=== PATIENT | female | born 1940 | race Caucasian/White ===

== ENCOUNTER 2016-12-03 13:55 | Emergency (ER) | payer MEDICARE ==
[~2016-12-03 13:55] MED LIST: ALPR.5 PO; AMLO5 PO; CYCL1TAB29 PO; DOCU1CAP39 PO; FLUD.1 PO; GABA100C4 PO; HYDR25TA35 PO; LEVO.075 PO; LIDO5DIS35 TD; Miconazole 2% Cream TOPICAL; NADO1TAB17 PO; NAME5TAB2 PO; POTA20TA5 PO; PRED10 PO; PRED20 PO; ULTR50TA5 PO; WHEEMIS3
[2016-12-03 14:13] VITALS: BP 109/58; PULSE 78; RESP 18; TEMP 98.3; O2SAT 94
--- NOTE | 2016-12-03 14:26 | PD ---
HPI Chief Complaint: Neuro Symptoms/ Deficits Time Seen by Provider: 14:19 Travel History International Travel<30 days: No Contact w/Intl Traveler<30days: No Traveled to known affect area: No History of Present Illness HPI 76-year-old female was brought to the ED after a possible seizure episode. Patient was newly diagnosed with type 2 diabetes. Patient was in the building attending diabetic class. Patient started having eyes rolling up and stiffening and shaking of the extremity. The symptoms lasted about 30 seconds and resolved completely. Patient's daughter reported no postictal state. Patient daughter reported no bowel or bladder incontinence. Patient reported no history of seizure in the past. Patient denies any headache. Patient denies any visual change. Patient denies any neck pain. Patient denies any chest pain or shortness of breath. Patient denies abdominal pain. Patient denies any focal weakness or numbness of extremity. Patient was seen by Dr. Hinojosa, neurologist in the past. Patient had MRI of the brain done 11/23/2016 at [facility] which showed no acute pathology. Patient has history of chronic back pain status post laminectomy, vertebroplasty and lumbar spinal fusion. Patient also has history hypertension, adrenal insufficiency which she is given steroid. PFSH Past Medical History Arthritis: No Asthma: No Autoimmune Disease: No Blood Disorders: No Anxiety: Yes Depression: No Heart Rhythm Problems: No Cancer: Yes (skin cancer at the tip of nose [place] 2003) Cardiovascular Problems: Yes (htn ) High Cholesterol: No Chemotherapy: No Chest Pain: No Congestive Heart Failure: No COPD: No Cerebrovascular Accident: No Diabetes: Yes (NEWLY DIAG) Endocrine: No GERD: No Genitourinary: Yes (UTI) Hepatitis: No Hiatal Hernia: No Hypertension: Yes (DX 1994) Immune Disorder: No Implanted Vascular Access Dvce: Yes Kidney Stones: No Musculoskeletal: Yes (CHRONIC BACK PAIN) Neurologic: Yes (HX FALL-seeing dr. hinojosa neurologist) Psychiatric: Yes (ANXIETY) Reproductive: Yes (HYSTERECTOMY) Respiratory: No Migraines: No Radiation Therapy: No Renal Failure: No Seizures: No Sickle Cell Disease: No Sleep Apnea: No Thyroid Disease: No Ulcer: No Past Surgical History Abdominal Surgery: No AICD: No Arteriovenous Shunt: No Body Medical Devices: HARDWARE IN LOW BACK FROM RECENT BACK SURGERY Cardiac Surgery: No Ear Surgery: No Endocrine Surgery: No Eye Surgery: Yes (CATARACTS SURGERY) Genitourinary Surgery: No Gynecologic Surgery: Yes (hysterectomy 1969) Insulin Pump: No Joint Replacement: No Neurologic Surgery: Yes (BACK, L4-L5 TRANSFORMAMINAL FUSION, L4-S1 SCREW FIXATION, KYPHOPLASTY) Oral Surgery: Yes (TONSILLECTOMY) Pacemaker: No Thoracic Surgery: Yes (lumbar spine fusion) Other Surgery: Yes (SEE BELOW) Social History Alcohol Use: No Tobacco Use: No Substance Use: No Allergies-Medications (Allergen,Severity, Reaction): Coded Allergies: Penicillin (Unverified Allergy, Unknown, hives as a child, 01/24/16) Percocet (Verified Adverse Reaction, Mild, Hives, 01/24/16) Reported Meds & Prescriptions Reported Meds & Active Scripts Active Wheelchair (Device) 1 Mis Mis 1 Ea .ROUTE DIRECTED Ultram (Tramadol HCl) 50 Mg Tab 25 Mg PO Q8H PRN Potassium Chloride Microencaps 20 Meq Tab 20 Meq PO BID 14 Days Corgard (Nadolol) 40 Mg Tab 40 Mg PO DAILY 30 Days [Miconazole 2% Cream] 15 APPLIC/15 GM Cr 1 Applic TOPICAL BID@09,20 14 Days Namenda (Memantine) 5 Mg Tab 5 Mg PO DAILY 30 Days Lidoderm Patch 12 HR (Lidocaine) 5% Patch 1 Patch TD DAILY 30 Days Synthroid (Levothyroxine Sodium) 75 Mcg Tab 75 Mcg PO DAILY@0600 30 Days Hydralazine (Hydralazine HCl) 25 Mg Tab 25 Mg PO Q8HR 30 Days Fludrocortisone (Fludrocortisone Acetate) 0.1 Mg Tab 0.1 Mg PO BID 30 Days Dok (Docusate Sodium) 100 Mg Cap 100 Mg PO DAILY PRN 30 Days Flexeril (Cyclobenzaprine HCl) 10 Mg Tab 5 Mg PO DAILY PRN Norvasc (Amlodipine Besylate) 5 Mg Tab 5 Mg PO DAILY 30 Days Xanax (Alprazolam) 0.5 Mg Tab 1 Mg PO Q8H PRN Reported Torsemide 5 Mg Tab 5 Mg PO DAILY Meclizine (Meclizine HCl) 12.5 Mg Tab 12.5 Mg PO DAILY PRN Gabapentin 100 Mg Cap 100 Mg PO TID Review of Systems General / Constitutional: No: Fever Eyes: No: Visual changes HENT: No: Headaches Cardiovascular: No: Chest Pain or Discomfort Respiratory: No: Shortness of Breath Gastrointestinal: No: Abdominal Pain Genitourinary: No: Dysuria Musculoskeletal: No: Pain Skin: No Rash Neurologic: No: Weakness Psychiatric: No: Depression Endocrine: No: Polydipsia Hematologic/Lymphatic: No: Easy Bruising Physical Exam Narrative GENERAL: Well-nourished, well-developed patient. SKIN: Warm and dry. HEAD: Normocephalic. EYES: No scleral icterus. No injection or drainage. NECK: Supple, trachea midline. No JVD or lymphadenopathy. CARDIOVASCULAR: Regular rate and rhythm without murmurs, gallops, or rubs. RESPIRATORY: Breath sounds equal bilaterally. No accessory muscle use. GASTROINTESTINAL: Abdomen soft, non-tender, nondistended. MUSCULOSKELETAL: No cyanosis, or edema. BACK: Nontender without obvious deformity. No CVA tenderness. Neurologic exam: Patient's awake and alert oriented 3. No obvious focal neurological deficit. Data Data Last Documented VS Vital Signs Date Time Temp Pulse Resp B/P Pulse Ox O2 Delivery O2 Flow Rate FiO2 12/03/16 16:13 83 93/67 85 97/97 12/03/16 15:39 20 94 Room Air 12/03/16 14:13 98.3 Orders Electrocardiogram (12/03/16 14:19) Complete Blood Count With Diff (12/03/16 14:19) Comprehensive Metabolic Panel (12/03/16 14:19) Prothrombin Time / Inr (Pt) (12/03/16 14:19) Act Partial Throm Time (Ptt) (12/03/16 14:19) Urinalysis - C+S If Indicated (12/03/16 14:19) Thyroid Stimulating Hormone (12/03/16 14:19) Chest, Single Ap (12/03/16 14:19) Ct Brain W/O Iv Contrast(Rout) (12/03/16 14:19) Iv Access Insert/Monitor (12/03/16 14:19) Ecg Monitoring (12/03/16 14:19) Oximetry (12/03/16 14:19) Sodium Chlor 0.9% 1000 Ml Inj (Ns 1000 M (12/03/16 16:30) Sodium Chlorid 0.9% 500 Ml Inj (Ns 500 M (12/03/16 16:30) Labs Laboratory Tests Test 12/03/16 12/03/16 15:05 15:15 White Blood Count 8.4 TH/MM3 Red Blood Count 4.95 MIL/MM3 Hemoglobin 14.4 GM/DL Hematocrit 42.7 % Mean Corpuscular Volume 86.2 FL Mean Corpuscular Hemoglobin 29.1 PG Mean Corpuscular Hemoglobin 33.7 % Concent Red Cell Distribution Width 13.2 % Platelet Count 191 TH/MM3 Mean Platelet Volume 10.2 FL Neutrophils (%) (Auto) 70.2 % Lymphocytes (%) (Auto) 14.2 % Monocytes (%) (Auto) 12.6 % Eosinophils (%) (Auto) 2.6 % Basophils (%) (Auto) 0.4 % Neutrophils # (Auto) 5.9 TH/MM3 Lymphocytes # (Auto) 1.2 TH/MM3 Monocytes # (Auto) 1.1 TH/MM3 Eosinophils # (Auto) 0.2 TH/MM3 Basophils # (Auto) 0.0 TH/MM3 CBC Comment DIFF FINAL Differential Comment Prothrombin Time 10.7 SEC Prothromb Time International 1.0 RATIO Ratio Activated Partial 26.1 SEC Thromboplast Time Sodium Level 139 MEQ/L Potassium Level 4.8 MEQ/L Chloride Level 104 MEQ/L Carbon Dioxide Level 26.1 MEQ/L Anion Gap 9 MEQ/L Blood Urea Nitrogen 23 MG/DL Creatinine 0.83 MG/DL Estimat Glomerular Filtration 66 ML/MIN Rate Random Glucose 110 MG/DL Calcium Level 9.6 MG/DL Total Bilirubin 0.2 MG/DL Aspartate Amino Transf 23 U/L (AST/SGOT) Alanine Aminotransferase 23 U/L (ALT/SGPT) Alkaline Phosphatase 68 U/L Total Protein 6.8 GM/DL Albumin 3.4 GM/DL Thyroid Stimulating Hormone LESS THAN 3rd Gen 0.005 uIU/ML Urine Color YELLOW Urine Turbidity CLEAR Urine pH 7.0 Urine Specific [place] 1.009 Urine Protein NEG mg/dL Urine Glucose (UA) NEG mg/dL Urine Ketones NEG mg/dL Urine Occult Blood NEG Urine Nitrite NEG Urine Bilirubin NEG Urine Urobilinogen LESS THAN 2.0 MG/DL Urine Leukocyte Esterase NEG Urine RBC LESS THAN 1 /hpf Urine WBC 1 /hpf Urine Squamous Epithelial 2 /hpf Cells Urine Bacteria OCC /hpf Microscopic Urinalysis Comment CULT NOT INDICATED MDM Medical Decision Making Medical Screen Exam Complete: Yes Emergency Medical Condition: Yes Interpretation(s) Last Impressions Head CT 12/03/16 4132 Signed Impressions: Service Date/Time: Saturday, December 03, 2016 14:54 - CONCLUSION: No acute disease. No significant change has occurred. Alfred Sierra MD 1531 PM. Chest x-ray shows compensated cardiomegaly. CBC within normal limit. 1614 p.m. CMP within normal limit. TSH less than 0.005. UA is negative. Differential Diagnosis Differential diagnosis including vasovagal reaction, seizure, electrolyte imbalance, dehydration, arrhythmia. Narrative Course 76-year-old female with eyes rolling back, stiffening and shaking of the extremity this afternoon. Normal saline solution 500 cc IV bolus. I spoke with Dr. Hinojosa, , patient's neurologist. Advised for patient to follow with her in the office. Diagnosis Primary Impression: Seizure Additional Impression: Hyperthyroidism Patient Instructions: General Instructions Additional Instructions: Stop Ultram. Stop levothyroxin. Follow-up with neurologist in 2 days. Return immediately if recurrent seizure, altered mental status or worsening condition. Med/Other Pt SpecificInfo: Med Stopped Disposition: 01 DISCHARGE HOME Condition: Stable Meliton Aguilar MD Dec 03, 2016 14:26
--- NOTE | 2016-12-03 15:02 | RADRPT ---
EXAM DATE/TIME: 12/03/2016 14:54 [facility] COMPARISON: CT BRAIN W/O CONTRAST, August 12, 2016, 0:08. INDICATIONS : Altered mental RADIATION DOSE: 36.83 CTDIvol (mGy) MEDICAL HISTORY : Hypertension. Cardiovascular disease SURGICAL HISTORY : Hysterectomy. ENCOUNTER: Initial ACUITY: 1 day PAIN SCALE: 0/10 LOCATION: cranial TECHNIQUE: Multiple contiguous axial images were obtained of the head. Using automated exposure control and adj ustment of the mA and/or kV according to patient size, radiation dose was kept as low as reasonably a chievable to obtain optimal diagnostic quality images. FINDINGS: CEREBRUM: The ventricles are normal for age. No evidence of midline shift, mass lesion, hemorrhage or acute in farction. No extra-axial fluid collections are seen. POSTERIOR FOSSA: The cerebellum and brainstem are intact. The 4th ventricle is midline. The cerebellopontine angle i s unremarkable. EXTRACRANIAL: The visualized portion of the orbits is intact. SKULL: The calvaria is intact. No evidence of skull fracture. CONCLUSION: No acute disease. No significant change has occurred. Alfred Sierra MD on December 03, 2016 at 14:59 Board Certified Radiologist. This report was verified electronically.
[2016-12-03] MEDS ORDERED: TORS5TAB2 PO (15:12)
[2016-12-03] MEDS ORDERED: MECL12.574 PO (15:12)
--- NOTE | 2016-12-03 15:15 | RADRPT ---
EXAM DATE/TIME: 12/03/2016 14:50 [facility] COMPARISON: CHEST SINGLE AP, November 04, 2014, 0:39. INDICATIONS : Syncopal episode today. Possible seizure. MEDICAL HISTORY : Diabetes mellitus type II. Hypertension. [place] Palsy. SURGICAL HISTORY : None. ENCOUNTER: Initial ACUITY: 1 day PAIN SCORE: 0/10 LOCATION: Bilateral chest FINDINGS: The heart is enlarged. Minimal bibasilar parenchymal changes are noted. There is no alveolar conso lidation, pleural effusion or pneumothorax. CONCLUSION: Compensated cardiomegaly otherwise negative. Bobby Castelan MD FACR on December 03, 2016 at 15:07 Board Certified Radiologist. This report was verified electronically.
[2016-12-03 15:29] LABS: AUTOMATED NEUTROPHIL # 5.9 TH/MM3 (1.8-7.7); BASOPHIL % 0.4 % (0.0-2.0); EOSINOPHIL # 0.2 TH/MM3 (0-0.4); EOSINOPHIL % 2.6 % (0.0-4.0); HEMATOCRIT 42.7 % (35.0-46.0); HEMO FLAGS DIFF FINAL; LYMPH % 14.2 % (9.0-44.0); LYMPHOCYTE # 1.2 TH/MM3 (1.0-4.8); MEAN CELL VOLUME 86.2 FL (80.0-100.0); MEAN CORPUSCULAR HEMOGLOBIN 29.1 PG (27.0-34.0); MEAN CORPUSCULAR HGB CONC 33.7 % (32.0-36.0); MONO % 12.6 % (0.0-8.0); NEUT % 70.2 % (16.0-70.0); PLATELET COUNT 191 TH/MM3 (150-450); RED BLOOD COUNT 4.95 MIL/MM3 (4.00-5.30); RED CELL DISTRIBUTION WIDTH 13.2 % (11.6-17.2); WHITE BLOOD COUNT 8.4 TH/MM3 (4.0-11.0)
[2016-12-03 15:38] VITALS: BP 101/59; PULSE 82; RESP 20; O2SAT 94
[2016-12-03 15:39] VITALS: BP 101/59; PULSE 83; RESP 20; O2SAT 94
[2016-12-03 15:41] LABS: BACTERIA, URINE OCC /hpf; BLOOD, URINE NEG (NEG); COMMENT (UR) CULT NOT INDICATED; CULTURE IF INDICATED CULT NOT INDICATED; GLUCOSE,URINE NEG (NEG); KETONE, URINE NEG (NEG); NITRITE,URINE NEG (NEG); SQUAMOUS EPITHELIAL CELL URINE 2 /hpf (0-5); URINE COLOR YELLOW (YELLW/STRAW)
[2016-12-03 15:46] LABS: APTT (PATIENT) 26.1 SEC (24.3-30.1); PROTHROMBIN TIME - PATIENT 10.7 SEC (9.8-11.6)
[2016-12-03 15:47] LABS: ALT (GPT) 23 U/L (10-53); ANION GAP 9 MEQ/L (5-15); AST (GOT) 23 U/L (15-37); BICARBONATE 26.1 MEQ/L (21.0-32.0); BLOOD UREA NITROGEN 23 MG/DL (7-18); CHLORIDE 104 MEQ/L (98-107); GLOMERULAR FILTRATION RATE 66 ML/MIN (>89); POTASSIUM 4.8 MEQ/L (3.5-5.1); SODIUM (NA) 139 MEQ/L (136-145)
[2016-12-03 15:57] LABS: ALKALINE PHOSPHATASE 68 U/L (45-117); TOTAL BILIRUBIN ADULT 0.2 MG/DL (0.2-1.0)
[2016-12-03 16:13] VITALS: BP_SYST 93; BP_SYST 97; BP_DIAS 67; BP_DIAS 97
[2016-12-03] MEDS ORDERED: SODIUM CHLOR 0.9% 1000 ML INJ 1,000 ML IV SCH (16:30)
[2016-12-03] MEDS ORDERED: SODIUM CHLORID 0.9% 500 ML INJ 500 ML IV ONE (16:30)
[2016-12-03 18:07] VITALS: BP 126/59; PULSE 81; RESP 20; O2SAT 94
[2016-12-03 18:08] VITALS: BP 126/59
--- NOTE | 2016-12-04 16:39 | EKG ---
Date Performed: 12/03/2016 Time Performed: 14:37:26 PTAGE: 76 years EKG: Sinus rhythm WITH FIRST DEGREE AV BLOCK POSSIBLE LEFT ATRIAL ENLARGEMENT Since previous tracing, no significant c hange noted ABNORMAL ECG PREVIOUS TRACING : 04/10/2012 12.07 DOCTOR: Roney Mcallister Interpretating Date/Time 12/04/2016 16:37:52
== END 2016-12-03 18:54 | disposition home or self-care (01) ==
LOC: NEPC 13:55
DX: R56.9 Unspecified convulsions (principal); E05.90 Thyrotoxicosis, unspecified without thyrotoxic crisis or storm; R94.31 Abnormal electrocardiogram [ECG] [EKG]; E11.9 Type 2 diabetes mellitus without complications; I10 Essential (primary) hypertension; E27.40 Unspecified adrenocortical insufficiency; Z87.39 Personal history of other diseases of the musculoskeletal system and connective tissue; Z86.59 Personal history of other mental and behavioral disorders; Z85.828 Personal history of other malignant neoplasm of skin; Z86.79 Personal history of other diseases of the circulatory system; Z87.448 Personal history of other diseases of urinary system; Z86.69 Personal history of other diseases of the nervous system and sense organs
CPT/HCPCS: 70450; 71010; 80053; 81001; 84443; 85025; 85610; 85730; 93005; 96360; 99285; J7040

== ENCOUNTER → 2017-01-07 | Day surgery (SDC) | payer MEDICARE ==
[~2017-01-07] MED LIST changes: +ACETAMINOPHEN 1000 MG/100 ML VIAL IV ONE; +BALANCED SALT SOLN OPHT IRRIG 15 ML BTL ONE; +HYDROCORTISONE SOD SUCCINATE 100 MG VIAL ONE; +LACTATED RINGER'S 1000 ML INJ 1,000 ML ONE; +LIDOCAINE 1%/EPINEPHrine 1:100,000 SOLN 20 ML VIAL ONE; +MECL12.574 PO; +MIDAZOLAM HCL 2 MG/2 ML VIAL ONE; +NEOMYCIN/POLYMYXIN/BACITRACIN OINT 15 GM TUBE ONE; +NEOMYCIN/POLYMYXIN/HYDROCORT OTIC SUSP 10 ML BTL ONE; +ONDANSETRON HCL 4 MG/2 ML VIAL IV PUSH ONE; -PRED10 PO; -PRED20 PO; +PROPOFOL 200 MG/20 ML AMP IV ONE; +TORS5TAB2 PO; +VANCOMYCIN 500 MG VIAL ONE
--- NOTE | 2017-01-07 10:59 | TN ---
cc: ALEJANDRO BERGMAN M.D. DATE OF SURGERY: 01/07/2017 PREOPERATIVE DIAGNOSIS Basal cell carcinoma, center upper mid forehead. POSTOPERATIVE DIAGNOSIS Basal cell carcinoma, center upper mid forehead. PROCEDURE Wide local excision resulting in a primary defect of 3 x 3 cm. Positive excision of the 12 to 3 o'clock required a re-excision resulting in a defect of 4 x 3 cm primary. The secondary defect is 4 x 9 cm. This required tissue arrangement construction. SURGEON Alejandro Bergman ANESTHESIA LMA general, 10 cc of 1% lidocaine with epinephrine. ESTIMATED BLOOD LOSS Minimal. COMPLICATIONS None. DETAILS OF PROCEDURE The patient is properly consented, marked and anesthetized. The skin is sterilized with Microcyn and sterile draping applied. Excision was carried out of this tumor located in the center upper forehead. Dr. Albert stated that the margins were very close to the 12-3 o'clock. Therefore, an extra centimeter was removed resulting in a primary defect of 4 x 3 cm instead of the initial 3 x 3 cm. That required further V-Y tissue rearrangement and reconstruction based on the fascia of the frontalis muscle. This was properly released and inset utilizing 3-0 Monocryl suture. On the skin layer I utilized a subcuticular. On the hair-bearing I utilized surgical carlota. Good viability of tissue was noted at the end of the case. The patient was awakened, extubated in the operating room and transferred back to the post-anesthesia care unit in stable addition. No complications were appreciated. The patient tolerated the procedure fairly well. MD BAUTISTA Cochran/CECILY /10:46 AM /10:52 AM [facility]
== END | disposition home or self-care (01) ==
LOC: ESDC 08:17
PROVIDERS: ATTEND Plastic Surgery
DX: C44.319 Basal cell carcinoma of skin of other parts of face (principal)
CPT/HCPCS: 00300; 14301; 88305; 88331; J0131; J1720; J2250; J2405; J3010; J3370; J7120

== ENCOUNTER 2017-07-10 15:30 | Inpatient (IN) | payer MEDICARE ==
[~2017-07-10 15:30] MED LIST changes: -ACETAMINOPHEN 1000 MG/100 ML VIAL IV ONE; -BALANCED SALT SOLN OPHT IRRIG 15 ML BTL ONE; -HYDROCORTISONE SOD SUCCINATE 100 MG VIAL ONE; -LACTATED RINGER'S 1000 ML INJ 1,000 ML ONE; -LIDOCAINE 1%/EPINEPHrine 1:100,000 SOLN 20 ML VIAL ONE; -MIDAZOLAM HCL 2 MG/2 ML VIAL ONE; -NEOMYCIN/POLYMYXIN/BACITRACIN OINT 15 GM TUBE ONE; -NEOMYCIN/POLYMYXIN/HYDROCORT OTIC SUSP 10 ML BTL ONE; -ONDANSETRON HCL 4 MG/2 ML VIAL IV PUSH ONE; -PROPOFOL 200 MG/20 ML AMP IV ONE; -VANCOMYCIN 500 MG VIAL ONE
[2017-07-10] MEDS ORDERED: MORPHINE SULFATE 4 MG/ML INJ IV PUSH PRN ×2 (16:15)
[2017-07-10] MEDS ORDERED: TEMAZEPAM 15 MG CAP PO PRN (16:15)
[2017-07-10] MEDS ORDERED: SENNOSIDES 8.6 MG TAB PO PRN (16:15)
[2017-07-10] MEDS ORDERED: BISACODYL 10 MG SUPP RECTAL PRN (16:15)
[2017-07-10] MEDS ORDERED: SODIUM CHLORIDE 0.9% FLUSH 10 ML FLUSH IV FLUSH PRN (16:15)
[2017-07-10] MEDS ORDERED: DEXTROSE 50% IN WATER 50 ML VIAL(D50) IV PUSH PRN (16:15)
[2017-07-10] MEDS ORDERED: NALOXONE HCL 0.4 MG/ML AMP IV PUSH PRN (16:15)
[2017-07-10] MEDS ORDERED: traMADol HCL 50 MG TAB PO PRN (16:15)
[2017-07-10] MEDS ORDERED: GLUCAGON 1 MG/ML VIAL OTHER PRN (16:15)
[2017-07-10] MEDS ORDERED: MAGNESIUM HYDROXIDE SUSP 30 ML CUP PO PRN (16:15)
[2017-07-10] MEDS ORDERED: PROCHLORPERAZINE 25 MG SUPP RECTAL PRN (16:15)
[2017-07-10] MEDS ORDERED: LACTULOSE SYRUP 20 GM/30 ML CUP PO PRN (16:15)
--- NOTE | 2017-07-10 16:30 | HHI.HP ---
[facility] Service [facility] Primary Care Physician Gregor Curran M.D. Admission Diagnosis AFIB WITH RVR BEING STARTED ON SOTALOL Diagnoses: (1) Diabetes Diagnosis: Secondary (2) Atrial fibrillation Diagnosis: Principal (3) History of back surgery Diagnosis: Secondary (4) Impaired gait Diagnosis: Secondary (5) Chronic pain Diagnosis: Secondary (6) Hyperthyroidism Diagnosis: Secondary (7) Chronic kidney disease Diagnosis: Secondary Chief Complaint: Atrial fibrillation with RVR Travel History International Travel<30 Days: No Contact w/Intl Traveler <30 Da: No Traveled to Known Affected Are: No History of Present Illness Patient is a 77-year-old female. Who presents to the hospital as a direct admission from Dr. HERNANDEZ OFFICE. Patient is noted to be in atrial fibrillation with RVR. Will be sent as a direct admission to load sotalol Patient's medications will need to be adjusted. Patient has chronic anticoagulation on Eliquis diabetes mellitus. Anxiety hypothyroidism depression Review of Systems Constitutional: DENIES: Diaphoretic episodes, Fatigue, Fever, Weight gain, Weight loss, Chills, Dizziness, Change in appetite Endocrine: DENIES: Abnorml menstrual pattern, Heat/cold intolerance Eyes: DENIES: Blurred vision, Diplopia, Eye inflammation, Eye pain Ears, nose, mouth, throat: DENIES: Tinnitus, Hearing loss, Vertigo, Nasal discharge, Odynophagia Respiratory: DENIES: Apneas, Cough, Snoring, Wheezing, Hemoptysis Cardiovascular: COMPLAINS OF: Chest pain, Palpitations, Dyspnea on Exertion, DENIES: Syncope, PND, Lower Extremity Edema Gastrointestinal: DENIES: Abdominal pain, Black stools, Bloody stools, Constipation, Diarrhea Genitourinary: DENIES: Abnormal vaginal bleeding, Dysmenorrhea, Vaginal discharge Musculoskeletal: COMPLAINS OF: Joint pain, Back pain, DENIES: Muscle aches, Stiffness, Joint Swelling Integumentary: DENIES: Abnormal pigmentation, Pruritus, Rash Hematologic/lymphatic: DENIES: Bruising, Lymphadenopathy Immunologic/allergic: DENIES: Eczema, Urticaria Neurologic: COMPLAINS OF: Abnormal gait, DENIES: Headache, Localized weakness Psychiatric: COMPLAINS OF: Anxiety, Depression, DENIES: Confusion, Mood changes Past Family Social History Past Medical History History of falls Hypertension atrial fibrillation Urinary tract infections Chronic back pain Anxiety depression Skin 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 History of syncope Aortic regurgitation Mitral stenosis Chronic bilateral lower extremity edema Vertigo Seizures Gait unsteadiness Adrenal insufficiency Diabetes mellitus Past Surgical History Cataracts and tonsillectomy History of back surgery L4 to L5 with transforaminal fusion History of L4 to S1 screw fixation kyphoplasty Hysterectomy Reported Medications Reported Meds & Active Scripts Active Wheelchair (Device) 1 Mis Mis 1 Ea .ROUTE DIRECTED Ultram (Tramadol HCl) 50 Mg Tab 25 Mg PO Q8H PRN Potassium Chloride Microencaps 20 Meq Tab 20 Meq PO BID 14 Days Corgard (Nadolol) 40 Mg Tab 40 Mg PO DAILY 30 Days [Miconazole 2% Cream] 15 APPLIC/15 GM Cr 1 Applic TOPICAL BID@09,20 14 Days Namenda (Memantine) 5 Mg Tab 5 Mg PO DAILY 30 Days Lidoderm Patch 12 HR (Lidocaine) 5% Patch 1 Patch TD DAILY 30 Days Synthroid (Levothyroxine Sodium) 75 Mcg Tab 75 Mcg PO DAILY@0600 30 Days Hydralazine (Hydralazine HCl) 25 Mg Tab 25 Mg PO Q8HR 30 Days Fludrocortisone (Fludrocortisone Acetate) 0.1 Mg Tab 0.1 Mg PO BID 30 Days Dok (Docusate Sodium) 100 Mg Cap 100 Mg PO DAILY PRN 30 Days Flexeril (Cyclobenzaprine HCl) 10 Mg Tab 5 Mg PO DAILY PRN Norvasc (Amlodipine Besylate) 5 Mg Tab 5 Mg PO DAILY 30 Days Xanax (Alprazolam) 0.5 Mg Tab 1 Mg PO Q8H PRN Reported Torsemide 5 Mg Tab 5 Mg PO DAILY Meclizine (Meclizine HCl) 12.5 Mg Tab 12.5 Mg PO DAILY PRN Gabapentin 100 Mg Cap 100 Mg PO TID Allergies: Coded Allergies: penicillin G (Unverified Allergy, Unknown, hives as a child, 05/28/17) acetaminophen (Unverified Adverse Reaction, Mild, Hives, 05/28/17) oxycodone (Unverified Adverse Reaction, Mild, Hives, 05/28/17) Active Ordered Medications Current Medications Insulin Aspart (NovoLOG SUPPLEMENTAL SCALE) 1 ACHS SLIDING SCALE SQ ; Start at 17:00; Status UNV Dextrose (D50w (Vial) Inj) 50 ml UNSCH PRN IV PUSH HYPOGLYCEMIA-SEE COMMENTS; Start 07/10/17 at 16:15; Status UNV Glucagon (Glucagon Inj) 1 mg UNSCH PRN OTHER HYPOGLYCEMIA-SEE COMMENTS; Start 07/10/17 at 16:15; Status UNV Family History MOther father Family history of heart disease Social History Former smoker used to smoke over a pack plus a day for 40+ years Drinks alcoholic beverages Physical Exam Vital Signs Vital Signs Date Time Temp Pulse Resp B/P (MAP) Pulse Ox O2 Delivery O2 Flow Rate FiO2 07/10/17 16:47 21 Current Medications Medications (Trade) Dose Ordered Sig/Chang Route PRN Reason Start Time Stop Time Status Last Admin Dose Admin Insulin Aspart (NovoLOG SUPPLEMENTAL SCALE) 1 ACHS SLIDING SCALE SQ 07/10/17 17:00 Dextrose (D50w (Vial) Inj) 50 ml UNSCH PRN IV PUSH HYPOGLYCEMIA-SEE COMMENTS 07/10/17 16:15 Glucagon (Glucagon Inj) 1 mg UNSCH PRN OTHER HYPOGLYCEMIA-SEE COMMENTS 07/10/17 16:15 Sodium Chloride 1,000 ml @ 100 mls/hr Q10H IV 07/10/17 17:00 Sodium Chloride (NS Flush) 2 ml UNSCH PRN IV FLUSH FLUSH AFTER USING IV ACCESS 07/10/17 16:15 Sodium Chloride (NS Flush) 2 ml BID IV FLUSH 07/10/17 21:00 Ondansetron HCl (Zofran Inj) 4 mg Q6H PRN IVP NAUSEA OR VOMITING 07/10/17 16:15 Prochlorperazine (Compazine Supp) 25 mg Q12H PRN RECTAL NAUSEA OR VOMITING 07/10/17 16:15 Temazepam (Restoril) 15 mg HS PRN PO INSOMNIA 07/10/17 16:15 07/10/17 16:47 DC Ibuprofen (Motrin) 400 mg Q6H PRN PO PAIN SCALE 1 TO 2 07/10/17 16:15 Morphine Sulfate (Morphine Inj) 2 mg Q3H PRN IV PUSH Pain 3-5; if unable to take PO 07/10/17 16:15 Morphine Sulfate (Morphine Inj) 4 mg Q3H PRN IV PUSH Pain 6-10;if unable to take PO 07/10/17 16:15 Tramadol HCl (Ultram) 50 mg Q4H PRN PO PAIN SCALE 3 TO 5 07/10/17 16:15 Tramadol HCl (Ultram) 100 mg Q4H PRN PO PAIN SCALE 6 TO 10 07/10/17 16:15 Naloxone HCl (Narcan Inj) 0.4 mg UNSCH PRN IV PUSH SEE LABEL COMMENTS 07/10/17 16:15 Senna/Docusate Sodium (Gilma-Colace) 1 tab BID PO 07/10/17 21:00 Magnesium Hydroxide (Milk Of Magnesia Liq) 30 ml Q12H PRN PO MILD - MODERATE CONSTIPATION 07/10/17 16:15 Sennosides (Senokot) 17.2 mg Q12H PRN PO MODERATE - SEVERE CONSTIPATION 07/10/17 16:15 Bisacodyl (Dulcolax Supp) 10 mg DAILY PRN RECTAL SEVERE CONSITIPATION 07/10/17 16:15 Lactulose (Lactulose Liq) 30 ml DAILY PRN PO SEVERE CONSITIPATION 07/10/17 16:15 Aspirin (Ecotrin Ec) 325 mg NOW ONCE PO 07/10/17 16:45 07/10/17 16:46 DC Aspirin (Ecotrin Ec) 325 mg DAILY PO 07/11/17 09:00 Temazepam (Restoril) 15 mg HS PRN PO SLEEP 07/10/17 16:45 Sotalol HCl (Betapace) 80 mg BID PO 07/10/17 21:00 Physical Exam GENERAL: This is a well-nourished, well-developed patient, in no apparent distress. SKIN: No rashes, ecchymoses or lesions. Cool and dry. HEAD: Atraumatic. Normocephalic. No temporal or scalp tenderness. EYES: Pupils equal round and reactive. Extraocular motions intact. No scleral icterus. No injection or drainage. ENT: Nose without bleeding, purulent drainage or septal hematoma. Throat without erythema, tonsillar hypertrophy or exudate. Uvula midline. Airway patent. NECK: Trachea midline. No JVD or lymphadenopathy. Supple, nontender, no meningeal signs. CARDIOVASCULAR: IRRegular rate and rhythm without murmurs, gallops, or rubs. In atrial fibrillation with rapid ventricular response S1 and S2 no S3 or S4 RESPIRATORY: Clear to auscultation. Breath sounds equal bilaterally. No wheezes , rales, or rhonchi. GASTROINTESTINAL: Abdomen soft, non-tender, nondistended. No hepato-splenomegaly , or palpable masses. No guarding. MUSCULOSKELETAL: Extremities without clubbing, cyanosis, +1-2 lower extremity edema. No joint tenderness, effusion, or edema noted. No calf tenderness. Negative Homans sign bilaterally. NEUROLOGICAL: Awake and alert. Cranial nerves II through XII intact. Motor and sensory grossly within normal limits. Five out of 5 muscle strength in all muscle groups. Normal speech. Insight and judgment is good Mood and behaviors appropriate Caprini VTE Risk Assessment Caprini VTE Risk Assessment: Mod/High Risk (score >= 2) Caprini Risk Assessment Model Point Value = 1 Point Value = 2 Point Value = 3 Point Value = 5 Age 41-60 Minor surgery BMI > 25 kg/m2 Swollen legs Varicose veins or History of unexplained or recurrent spontaneous Oral contraceptives or hormone replacement Sepsis (< 1 month) Serious lung disease, including pneumonia (< 1 month) Abnormal pulmonary function Acute myocardial infarction Congestive heart failure (< 1 month) History of inflammatory bowel disease Medical patient at bed rest Age 61-74 Arthroscopic surgery Major open surgery (> 45 min) Laparoscopic surgery (> 45 min) Malignancy Confined to bed (> 72 hours) Immobilizing plaster cast Central venous access Age >= 75 History of VTE Family history of VTE Factor V Leiden Prothrombin [id number] Lupus anticoagulant Anticardiolipin antibodies Elevated serum homocysteine Heparin-induced thrombocytopenia Other congenital or acquired thrombophilia Stroke (< 1 month) Elective arthroplasty Hip, pelvis, or leg fracture Acute spinal cord injury (< 1 month) Prophylaxis Regimen Total Risk Factor Score Risk Level Prophylaxis Regimen 0-1 Low Early ambulation 2 Moderate Order ONE of the following: *Sequential Compression Device (SCD) *Heparin 5000 units SQ BID 3-4 Higher Order ONE of the following medications: *Heparin 5000 units SQ TID *Enoxaparin/Lovenox 40 mg SQ daily (WT < 150 kg, CrCl > 30 mL/min) *Enoxaparin/Lovenox 30 mg SQ daily (WT < 150 kg, CrCl > 10-29 mL/min) *Enoxaparin/Lovenox 30 mg SQ BID (WT < 150 kg, CrCl > 30 mL/min) AND/OR *Sequential Compression Device (SCD) 5 or more Highest Order ONE of the following medications: *Heparin 5000 units SQ TID (Preferred with Epidurals) *Enoxaparin/Lovenox 40 mg SQ daily (WT < 150 kg, CrCl > 30 mL/min) *Enoxaparin/Lovenox 30 mg SQ daily (WT < 150 kg, CrCl > 10-29 mL/min) *Enoxaparin/Lovenox 30 mg SQ BID (WT < 150 kg, CrCl > 30 mL/min) AND *Sequential Compression Device (SCD) Assessment and Plan Problem List: (1) History of back surgery ICD Code: Z98.89 - Other specified postprocedural states Status: Acute (2) Impaired gait ICD Code: R26.9 - Impaired gait Status: Acute (3) Lumbar degenerative disc disease ICD Code: M51.36 - Degeneration of lumbar intervertebral disc Status: Acute (4) Chronic pain ICD Code: G89.29 - Chronic pain Status: Chronic (5) HTN (hypertension) ICD Code: I10 - Hypertension Status: Chronic (6) Atrial fibrillation ICD Code: I48.91 - Unspecified atrial fibrillation (7) Diabetes ICD Code: E11.9 - Type 2 diabetes mellitus without complications (8) Seizure ICD Code: R56.9 - Unspecified convulsions Status: Acute (9) Balance problem ICD Code: R26.89 - Other abnormalities of gait and mobility Status: Acute Assessment and Plan Atrial fibrillation with rapid ventricular response will be loaded on sotalol and will hopefully undergo cardioversion later this week continue on her Eliquis as at home Chronic syncope followed by Dr. HERNANDEZ Shortness of breath continue on oxygen as needed Aortic regurgitation will follow Mitral stenosis Generalized weakness we'll get physical therapy and occupational therapy to eval and treat Vertigo continue meclizine as needed Seizures monitor Diabetes mellitus type 2 continue on sliding scale coverage with Accu-Cheks before meals and at bedtime Adrenal insufficiency continue on home medications Chronic lower extremity edema Chronic back pain We'll get physical therapy and occupational therapy to eval and treat continue home medications and adjusted per Dr. HERNANDEZ Code Status Full code Discussed Condition With Discussed with RN discussed with patient and family as well as with Physician Certification 2 Midnight Certification Type: Admission for Inpatient Services Order for Inpatient Services The services are ordered in accordance with Medicare regulations or non- Medicare payer requirements, as applicable. In the case of services not specified as inpatient-only, they are appropriately provided as inpatient services in accordance with the 2-midnight benchmark. Estimated LOS (days): 3 3 days is the estimated time the patient will need to remain in the hospital, assuming treatment plan goals are met and no additional complications. Post-Hospital Plan: Not yet determined Bobby Echavarria DO Jul 10, 2017 16:30
[2017-07-10] MEDS ORDERED: ASPIRIN EC 325 MG TABEC PO ONE (16:45)
[2017-07-10] MEDS: INSULIN ASPART SUPPLEMENTAL SCALE SQ SCH ×2 (17:00→21:00)
[2017-07-10 17:01] VITALS: BP 119/77; PULSE 87; RESP 18; TEMP 98; O2SAT 95
[2017-07-10 18:12] LABS: CREATINE KINASE 23 U/L (26-192)
[2017-07-10] MEDS ORDERED: MECLIZINE HCL 25 MG TAB PO PRN (18:45)
[2017-07-10] MEDS: SODIUM CHLOR 0.9% 1000 ML INJ 1,000 ML IV SCH (18:58)
[2017-07-10 19:00] VITALS: BP 142/78; PULSE 103; RESP 18; TEMP 98; O2SAT 95
[2017-07-10] MEDS ORDERED: PILL SPLITTER OTHER PRN (19:00)
[2017-07-10 20:00] VITALS: PULSE 88
[2017-07-10] MEDS: SODIUM CHLORIDE 0.9% FLUSH 10 ML FLUSH IV FLUSH SCH (20:16)
[2017-07-10] MEDS: DOCUSATE SODIUM 50 MG/SENNA 8.6 MG TAB PO SCH (20:16)
[2017-07-10] MEDS: SOTALOL HCL 80 MG TAB PO SCH (20:16)
[2017-07-10] MEDS: TEMAZEPAM 15 MG CAP PO PRN (20:32)
[2017-07-10 20:41] LABS: APTT (PATIENT) 28.2 SEC (24.3-30.1); PROTHROMBIN TIME - PATIENT 11.2 SEC (9.8-11.6)
[2017-07-10 21:00] VITALS: PULSE 98
--- NOTE | 2017-07-10 21:26 | RADRPT ---
EXAM DATE/TIME: 07/10/2017 20:53 [facility] COMPARISON: No previous studies available for comparison. INDICATIONS : Productive cough. MEDICAL HISTORY : Hypertension. Diabetes mellitus type II. A-fib. SURGICAL HISTORY : None. ENCOUNTER: Initial ACUITY: 3 days PAIN SCORE: 0/10 LOCATION: Bilateral chest FINDINGS: There is moderate cardiomegaly, increased from before. Patchy basilar predominant consolidation noted , probably a combination of atelectasis and pulmonary edema. Small, bilateral pleural effusions are p resent. No pneumothorax. CONCLUSION: Moderate cardiomegaly has developed and there is suspected mild failure. Larry Luu MD on July 10, 2017 at 21:24 Board Certified Radiologist. This report was verified electronically.
[2017-07-10] MEDS: FLUDROCORTISONE ACETATE 0.1 MG TAB PO SCH (21:55)
[2017-07-10] MEDS: ALPRAZolam 0.5 MG TAB PO PRN (21:55)
[2017-07-10 22:00] VITALS: PULSE 82
[2017-07-10 23:00] VITALS: BP 100/62; PULSE 80; PULSE 87; RESP 18; TEMP 98.2; O2SAT 94
[2017-07-11] VITALS (29 sets, daily range): BP systolic 125–155; BP diastolic 75–96; PULSE 72–122; RESP 16–20; TEMP 97.6–98.6; O2SAT 92–98
[2017-07-11 00:20] LABS: CREATINE KINASE 26 U/L (26-192)
[2017-07-11] MEDS: SODIUM CHLOR 0.9% 1000 ML INJ 1,000 ML IV SCH ×2 (02:53→17:51)
[2017-07-11] MEDS: IBUPROFEN 400 MG TAB PO PRN (05:14)
[2017-07-11 06:51] LABS: AUTOMATED NEUTROPHIL # 3.9 TH/MM3 (1.8-7.7); BASOPHIL % 0.6 % (0.0-2.0); EOSINOPHIL # 0.2 TH/MM3 (0-0.4); EOSINOPHIL % 3.6 % (0.0-4.0); HEMATOCRIT 37.7 % (35.0-46.0); HEMO FLAGS DIFF FINAL; LYMPH % 23.8 % (9.0-44.0); LYMPHOCYTE # 1.5 TH/MM3 (1.0-4.8); MEAN CELL VOLUME 93.9 FL (80.0-100.0); MEAN CORPUSCULAR HEMOGLOBIN 31.2 PG (27.0-34.0); MEAN CORPUSCULAR HGB CONC 33.3 % (32.0-36.0); MONO % 11.1 % (0.0-8.0); NEUT % 60.9 % (16.0-70.0); PLATELET COUNT 230 TH/MM3 (150-450); RED BLOOD COUNT 4.01 MIL/MM3 (4.00-5.30); RED CELL DISTRIBUTION WIDTH 13.7 % (11.6-17.2); WHITE BLOOD COUNT 6.4 TH/MM3 (4.0-11.0)
[2017-07-11 07:02] LABS: ANION GAP 9 MEQ/L (5-15); AST (GOT) 21 U/L (15-37); BICARBONATE 23.6 MEQ/L (21.0-32.0); BLOOD UREA NITROGEN 10 MG/DL (7-18); CHLORIDE 107 MEQ/L (98-107); GLOMERULAR FILTRATION RATE 95 ML/MIN (>89); MAGNESIUM 1.7 MG/DL (1.5-2.5); POTASSIUM 3.7 MEQ/L (3.5-5.1); SODIUM (NA) 140 MEQ/L (136-145)
[2017-07-11 07:10] LABS: ALKALINE PHOSPHATASE 81 U/L (45-117); ALT (GPT) 27 U/L (10-53); FREE T4 1.36 NG/DL (0.76-1.46); TOTAL BILIRUBIN ADULT 0.4 MG/DL (0.2-1.0)
[2017-07-11 07:43] LABS: CREATINE KINASE 21 U/L (26-192)
--- NOTE | 2017-07-11 07:52 | EKG ---
Date Performed: 07/10/2017 Time Performed: 17:13:34 PTAGE: 77 years EKG: Atrial fibrillation with rapid ventricular response Inferior/lateral ST-T changes are nonsp ecific Abnormal ECG Since PREVIOUS TRACING , now AF with RVR PREVIOUS TRACIN12/03/2016 14.37 DOCTOR: Angela Harp Interpretating Date/Time 07/11/2017 07:50:57
[2017-07-11] MEDS: INSULIN ASPART SUPPLEMENTAL SCALE SQ SCH ×4 (08:00→20:38)
[2017-07-11] MEDS: FLUDROCORTISONE ACETATE 0.1 MG TAB PO SCH ×2 (08:33→20:37)
[2017-07-11] MEDS: SOTALOL HCL 80 MG TAB PO SCH ×2 (08:33→20:37)
[2017-07-11] MEDS: DOCUSATE SODIUM 50 MG/SENNA 8.6 MG TAB PO SCH ×2 (08:33→20:37)
[2017-07-11] MEDS: SODIUM CHLORIDE 0.9% FLUSH 10 ML FLUSH IV FLUSH SCH ×2 (08:34→21:00)
[2017-07-11] MEDS: ASPIRIN EC 325 MG TABEC PO SCH (08:34)
[2017-07-11 12:38] LABS: BACTERIA, URINE RARE /hpf; BLOOD, URINE NEG (NEG); COMMENT (UR) CULT NOT INDICATED; CULTURE IF INDICATED CULT NOT INDICATED; GLUCOSE,URINE NEG (NEG); KETONE, URINE NEG (NEG); MUCUS URINE FEW /lpf (OCC); NITRITE,URINE NEG (NEG); PH, URINE 5.5 (5.0-8.5); SQUAMOUS EPITHELIAL CELL URINE 1 /hpf (0-5); URINE COLOR YELLOW (YELLW/STRAW)
[2017-07-11] MEDS: traMADol HCL 50 MG TAB PO PRN ×2 (14:10→20:55)
[2017-07-11 15:37] LABS: HEMOGLOBIN A1a 0.9 %; HEMOGLOBIN A1b 2.2 %; HEMOGLOBIN Ao 82.3 %; HEMOGLOBIN LA1C 2.4 %; HEMOGLOBIN P3 4.3 %
--- NOTE | 2017-07-11 17:07 | EKG ---
Date Performed: 07/11/2017 Time Performed: 00:52:00 PTAGE: 77 years EKG: Atrial fibrillation Poor R wave progression - probable normal variant Inferior T wave king es are nonspecific Abnormal ECG Since PREVIOUS TRACING , no significant change noted PREVIOUS TRACIN07/10/2017 17.13 DOCTOR: Angela Harp Interpretating Date/Time 07/11/2017 17:07:18
--- NOTE | 2017-07-11 17:24 | PD.CONS ---
HPI Service Cardiology Physicians Consult Requested By Dr Nuñez Reason for Consult Afib, patient known to us Primary Care Physician Gregor Curran M.D. History of Present Illness The patient is a 77 year old female known to our practice with a medical history of atrial fibrillation, syncope, hypotension, aortic regurgitation, and DM. Other notable history is adrenal insufficiency. The patient was directly admitted from our office for symptomatic atrial fibrillation with rapid ventricular response for Sotalol loading and direct current cardioversion. She states she is feeling better today. She is less SOB, less lightheaded and does not feel her heart pounding inside her chest. She continues to feel "jittery." (Shana Patel) Review of Systems Consitutional: COMPLAINS OF: Fatigue, DENIES: Fever, Chills, Weight gain, Weight loss Eyes: DENIES: Amaurosis Fugax, Change in vision HEENT: COMPLAINS OF: Lightheadedness, DENIES: Change in hearing Respiratory: COMPLAINS OF: Shortness of breath, DENIES: See HPI, Cough, Snoring , Wheezing, Sputum production Cardiovascular: COMPLAINS OF: Palpitations, Tachycardia, DENIES: See HPI, Chest pain, Syncope Gastrointestinal: DENIES: Nausea, Vomiting, Change in bowel habits, Reflux, Bloody stools, Melena Genitourinary: DENIES: Urinary incontinence, Difficulty voiding Integumentary: DENIES: Rash Neurologic: DENIES: Tingling or numbness, Memory problems, Poor Balance, Stroke symptoms Musculoskeletal: DENIES: Joint pain, Muscle pain, Limited range of motion, Back pain Psychiatric: DENIES: Anxiety, Depression, Sleep disturbances Hematologic: DENIES: Bruising tendencies, Bleeding tendencies Endocrine: DENIES: Weight gain, Weight loss, Thyroid disease (Shana Patel ) Past Family Social History Allergies: Coded Allergies: penicillin G (Unverified Allergy, Unknown, hives as a child, 05/28/17) acetaminophen (Unverified Adverse Reaction, Mild, Hives, 05/28/17) oxycodone (Unverified Adverse Reaction, Mild, Hives, 05/28/17) Past Medical History See HPI Past Surgical History Hysterectomy Reported Medications Reported Meds & Active Scripts Active Wheelchair (Device) 1 Mis Mis 1 Ea .ROUTE DIRECTED Ultram (Tramadol HCl) 50 Mg Tab 25 Mg PO Q8H PRN Potassium Chloride Microencaps 20 Meq Tab 20 Meq PO BID 14 Days Corgard (Nadolol) 40 Mg Tab 40 Mg PO DAILY 30 Days [Miconazole 2% Cream] 15 APPLIC/15 GM Cr 1 Applic TOPICAL BID@,20 14 Days Namenda (Memantine) 5 Mg Tab 5 Mg PO DAILY 30 Days Lidoderm Patch 12 HR (Lidocaine) 5% Patch 1 Patch TD DAILY 30 Days Synthroid (Levothyroxine Sodium) 75 Mcg Tab 75 Mcg PO DAILY@0600 30 Days Hydralazine (Hydralazine HCl) 25 Mg Tab 25 Mg PO Q8HR 30 Days Fludrocortisone (Fludrocortisone Acetate) 0.1 Mg Tab 0.1 Mg PO BID 30 Days Dok (Docusate Sodium) 100 Mg Cap 100 Mg PO DAILY PRN 30 Days Flexeril (Cyclobenzaprine HCl) 10 Mg Tab 5 Mg PO DAILY PRN Norvasc (Amlodipine Besylate) 5 Mg Tab 5 Mg PO DAILY 30 Days Xanax (Alprazolam) 0.5 Mg Tab 1 Mg PO Q8H PRN Reported Torsemide 5 Mg Tab 5 Mg PO DAILY Meclizine (Meclizine HCl) 12.5 Mg Tab 12.5 Mg PO DAILY PRN Gabapentin 100 Mg Cap 100 Mg PO TID Active Ordered Medications Current Medications Medications (Trade) Dose Ordered Sig/Chang Route Start Time Stop Time Status Last Admin (NovoLOG SUPPLEMENTAL SCALE) 1 ACHS SLIDING SCALE SQ 07/10/17 17:00 07/11/17 12:00 (D50w (Vial) Inj) 50 ml UNSCH PRN IV PUSH 07/10/17 16:15 (Glucagon Inj) 1 mg UNSCH PRN OTHER 07/10/17 16:15 Sodium Chloride 1,000 ml @ 100 mls/hr Q10H IV 07/10/17 17:00 07/10/17 18:58 (NS Flush) 2 ml UNSCH PRN IV FLUSH 07/10/17 16:15 (NS Flush) 2 ml BID IV FLUSH 07/10/17 21:00 07/11/17 08:34 (Zofran Inj) 4 mg Q6H PRN IVP 07/10/17 16:15 (Compazine Supp) 25 mg Q12H PRN RECTAL 07/10/17 16:15 (Motrin) 400 mg Q6H PRN PO 07/10/17 16:15 07/11/17 05:14 (Morphine Inj) 2 mg Q3H PRN IV PUSH 07/10/17 16:15 (Morphine Inj) 4 mg Q3H PRN IV PUSH 07/10/17 16:15 (Ultram) 50 mg Q4H PRN PO 07/10/17 16:15 07/11/17 05:14 (Ultram) 100 mg Q4H PRN PO 07/10/17 16:15 07/11/17 14:10 (Narcan Inj) 0.4 mg UNSCH PRN IV PUSH 07/10/17 16:15 (Gilma-Colace) 1 tab BID PO 07/10/17 21:00 07/11/17 08:33 (Milk Of Magnesia Liq) 30 ml Q12H PRN PO 07/10/17 16:15 (Senokot) 17.2 mg Q12H PRN PO 07/10/17 16:15 (Dulcolax Supp) 10 mg DAILY PRN RECTAL 07/10/17 16:15 (Lactulose Liq) 30 ml DAILY PRN PO 07/10/17 16:15 (Ecotrin Ec) 325 mg DAILY PO 07/11/17 09:00 07/11/17 08:34 (Restoril) 15 mg HS PRN PO 07/10/17 16:45 07/10/17 20:32 (Betapace) 80 mg BID PO 07/10/17 21:00 07/11/17 08:33 (Xanax) 1 mg Q8H PRN PO 07/10/17 18:45 07/10/17 21:55 (Florinef) 0.1 mg BID PO 07/10/17 21:00 07/11/17 08:33 (Antivert) 12.5 mg DAILY PRN PO 07/10/17 18:45 (Pill Splitter) 1 ea UNSCH PRN OTHER 07/10/17 19:00 Family History non contributory Social History Lives alone, daughter lives in [place] No ETOH or tobacco (Shana Patel) Physical Exam Vital Signs Vital Signs Date Time Temp Pulse Resp B/P (MAP) Pulse Ox O2 Delivery O2 Flow Rate FiO2 07/11/17 16:19 98.0 76 18 139/85 (103) 93 07/11/17 12:01 72 07/11/17 11:30 98.0 86 18 139/86 (103) 98 07/11/17 11:00 74 07/11/17 10:31 95 21 07/11/17 10:00 82 07/11/17 09:00 96 07/11/17 08:30 97.6 90 18 138/81 (100) 98 07/11/17 08:00 86 07/11/17 07:01 103 07/11/17 06:24 92 07/11/17 05:00 85 07/11/17 04:00 90 07/11/17 03:46 98.6 89 18 125/75 (92) 94 07/11/17 03:20 104 07/11/17 02:42 93 07/11/17 01:05 75 07/11/17 00:00 96 07/10/17 23:00 98.2 80 18 100/62 (75) 94 07/10/17 23:00 87 07/10/17 22:00 82 07/10/17 21:00 98 07/10/17 20:00 88 07/10/17 19:00 98.0 103 18 142/78 (99) 95 Physical Exam GENERAL: Elderly female, laying flat in bed SKIN: Warm and dry. HEAD: Atraumatic. Normocephalic. EYES: Pupils equal and round. No scleral icterus. ENT: No nasal bleeding or discharge. NECK: Trachea midline CARDIOVASCULAR: Irreg irreg, mumur RESPIRATORY: No accessory muscle use. Clear to auscultation. Breath sounds equal bilaterally. GASTROINTESTINAL: Abdomen soft, non-tender, nondistended. MUSCULOSKELETAL: Extremities without clubbing, cyanosis, or edema. NEUROLOGICAL: Awake and alert. No obvious cranial nerve deficits. Motor grossly within normal limits. Five out of 5 muscle strength in the arms and legs. Normal speech. PSYCHIATRIC: Appropriate mood and affect; insight and judgment normal. Laboratory Laboratory Tests Test 07/10/17 20:00 07/10/17 23:23 07/11/17 04:20 07/11/17 11:30 Prothrombin Time 11.2 Prothromb Time International Ratio 1.0 Activated Partial Thromboplast Time 28.2 Total Creatine Kinase 26 21 Troponin I LESS THAN 0.02 LESS THAN 0.02 White Blood Count 6.4 Red Blood Count 4.01 Hemoglobin 12.5 Hematocrit 37.7 Mean Corpuscular Volume 93.9 Mean Corpuscular Hemoglobin 31.2 Mean Corpuscular Hemoglobin Concent 33.3 Red Cell Distribution Width 13.7 Platelet Count 230 Mean Platelet Volume 9.8 Neutrophils (%) (Auto) 60.9 Lymphocytes (%) (Auto) 23.8 Monocytes (%) (Auto) 11.1 Eosinophils (%) (Auto) 3.6 Basophils (%) (Auto) 0.6 Neutrophils # (Auto) 3.9 Lymphocytes # (Auto) 1.5 Monocytes # (Auto) 0.7 Eosinophils # (Auto) 0.2 Basophils # (Auto) 0.0 CBC Comment DIFF FINAL Differential Comment Blood Urea Nitrogen 10 Creatinine 0.61 Random Glucose 164 Total Protein 6.5 Albumin 3.0 Calcium Level 9.2 Phosphorus Level 3.0 Magnesium Level 1.7 Alkaline Phosphatase 81 Aspartate Amino Transf (AST/SGOT) 21 Alanine Aminotransferase (ALT/SGPT) 27 Total Bilirubin 0.4 Sodium Level 140 Potassium Level 3.7 Chloride Level 107 Carbon Dioxide Level 23.6 Anion Gap 9 Estimat Glomerular Filtration Rate 95 Free Thyroxine 1.36 Thyroid Stimulating Hormone 3rd Gen 0.006 Urine Color YELLOW Urine Turbidity CLEAR Urine pH 5.5 Urine Specific [place] 1.011 Urine Protein NEG Urine Glucose (UA) NEG Urine Ketones NEG Urine Occult Blood NEG Urine Nitrite NEG Urine Bilirubin NEG Urine Urobilinogen LESS THAN 2.0 Urine Leukocyte Esterase NEG Urine RBC LESS THAN 1 Urine WBC LESS THAN 1 Urine Squamous Epithelial Cells 1 Urine Bacteria RARE Urine Mucus FEW Microscopic Urinalysis Comment CULT NOT INDICATED (Shana Patel) Result Diagram: 07/11/17 0420 07/11/17 0420 Imaging Last 72 hours Impressions Chest X-Ray 07/10/17 0000 Signed Impressions: Service Date/Time: Monday, July 10, 2017 20:53 - CONCLUSION: Moderate cardiomegaly has developed and there is suspected mild failure. Larry Luu MD (Shana Patel) Assessment and Plan Assessment and Plan Symptomatic atrial fibrillation with RVR Aortic regurgitation Hypotension Adrenal insufficiency PLAN Continue Sotalol loading. Check daily EKG TOD/cardioversion tomorrow. NPO after 0700 in the AM. Full liquid breakfast Will check 0400 cortisol The patient was seen and evaluated by Dr Garvey who completed face to face encounter, physical exam and participated in evaluation and management (Shana Patel) Assessment and Plan The exam, history, and the medical decision-making described in the above note were completed with the assistance of the mid-level provider. I reviewed and agree with the findings presented. I attest that I had a [id number] encounter with the patient on the same day, and personally performed and documented my assessment and findings in the medical record. Risks of tod cardioversion reviewed in great detail, will proceed soon. (Jordi Garvey MD) Shana Patel Jul 11, 2017 17:24 Jordi Garvey MD Jul 12, 2017 09:58
--- NOTE | 2017-07-11 18:11 | HHI.PR ---
Subjective Remarks Nursing reports no acute deteriorations since last night. Patient is also she feels much better since admission but still feels very fatigued. Tolerating by mouth intake, denies any new onset chest pain. Objective Vital Signs Date Time Temp Pulse Resp B/P (MAP) Pulse Ox O2 Delivery O2 Flow Rate FiO2 07/11/17 16:19 98.0 76 18 139/85 (103) 93 07/11/17 12:01 72 07/11/17 11:30 98.0 86 18 139/86 (103) 98 07/11/17 11:00 74 07/11/17 10:31 95 21 07/11/17 10:00 82 07/11/17 09:00 96 07/11/17 08:30 97.6 90 18 138/81 (100) 98 07/11/17 08:00 86 07/11/17 07:01 103 07/11/17 06:24 92 07/11/17 05:00 85 07/11/17 04:00 90 07/11/17 03:46 98.6 89 18 125/75 (92) 94 07/11/17 03:20 104 07/11/17 02:42 93 07/11/17 01:05 75 07/11/17 00:00 96 07/10/17 23:00 98.2 80 18 100/62 (75) 94 07/10/17 23:00 87 07/10/17 22:00 82 07/10/17 21:00 98 07/10/17 20:00 88 07/10/17 19:00 98.0 103 18 142/78 (99) 95 I/O 07/10/17 07/10/17 07/10/17 07/11/17 07/11/17 07/11/17 07:00 15:00 23:00 07:00 15:00 23:00 Intake Total 240 ml 1543 ml 987 ml Output Total 400 ml Balance 240 ml 1143 ml 987 ml Intake Oral 240 ml 480 ml IV Total 1063 ml 987 ml Output Urine Total 400 ml # Voids 1 2 Result Diagram: 07/11/1741907/11/17419 Objective Remarks Regular rate, irregular rhythm, no JVD noted No acute distress, lying in bed, awake A/P Assessment and Plan 77-year-old white female admitted for A. fib with RVR. Atrial fibrillation with rapid ventricular response - continuing sotalol loading per cardiology, continue on her Eliquis as at home Chronic syncope followed by Dr. HERNANDEZ Shortness of breath continue on oxygen as needed Aortic regurgitation will follow Mitral stenosis Generalized weakness we'll get physical therapy and occupational therapy to eval and treat Vertigo - continue meclizine as needed Seizures monitor Diabetes mellitus type 2 continue on sliding scale coverage with Accu-Cheks before meals and at bedtime - controlled under 200s Adrenal insufficiency continue on home medications Chronic lower extremity edema Chronic back pain We'll get physical therapy and occupational therapy to eval and treat continue home medications and adjusted per Dr. HERNANDEZ Discussed Condition With Discussed with RN discussed with patient and family as well as with Jhonatan Storm MD Jul 11, 2017 18:10
[2017-07-11] MEDS: ALPRAZolam 0.5 MG TAB PO PRN (19:28)
[2017-07-11] MEDS: ONDANSETRON HCL 4 MG/2 ML VIAL IVP PRN (20:38)
[2017-07-11] MEDS: TEMAZEPAM 15 MG CAP PO PRN (20:54)
[2017-07-12] VITALS (29 sets, daily range): BP systolic 115–150; BP diastolic 72–97; PULSE 83–122; RESP 16–20; TEMP 97.5–98.2; O2SAT 92–96
[2017-07-12] MEDS: SODIUM CHLOR 0.9% 1000 ML INJ 1,000 ML IV SCH (02:57)
[2017-07-12] MEDS: traMADol HCL 50 MG TAB PO PRN ×3 (03:20→21:23)
[2017-07-12] MEDS: ALPRAZolam 0.5 MG TAB PO PRN (05:07)
[2017-07-12] MEDS: INSULIN ASPART SUPPLEMENTAL SCALE SQ SCH ×4 (08:00→21:00)
[2017-07-12] MEDS: FLUDROCORTISONE ACETATE 0.1 MG TAB PO SCH ×2 (08:37→21:19)
[2017-07-12] MEDS: ONDANSETRON HCL 4 MG/2 ML VIAL IVP PRN (08:37)
[2017-07-12] MEDS: SOTALOL HCL 80 MG TAB PO SCH ×2 (08:37→21:19)
[2017-07-12] MEDS: ASPIRIN EC 325 MG TABEC PO SCH (08:38)
[2017-07-12] MEDS: DOCUSATE SODIUM 50 MG/SENNA 8.6 MG TAB PO SCH ×2 (08:38→21:19)
[2017-07-12] MEDS: SODIUM CHLORIDE 0.9% FLUSH 10 ML FLUSH IV FLUSH SCH ×2 (08:38→21:19)
[2017-07-12] MEDS: IBUPROFEN 400 MG TAB PO PRN (08:38)
--- NOTE | 2017-07-12 10:20 | EKG ---
Date Performed: 07/11/2017 Time Performed: 09:05:30 PTAGE: 77 years EKG: Atrial fibrillation IV conduction defect Inferior/lateral ST-T changes may be due to myocar dial ischemia Compared to prior tracing no significant change Abnormal ECG PREVIOUS TRACING : 07/11/2017 00.52 DOCTOR: Man Kauffman Interpretating Date/Time 07/12/2017 10:15:48
[2017-07-12] MEDS ORDERED: ENOXAPARIN SODIUM 40 MG/0.4 ML SYRINGE SQ ONE (13:15)
[2017-07-12] MEDS ORDERED: CYCLOBENZAPRINE HCL 10 MG TAB PO PRN (13:15)
[2017-07-12] MEDS ORDERED: PILL SPLITTER OTHER PRN (13:45)
--- NOTE | 2017-07-12 15:36 | PD.CARD.PN ---
Subjective Subjective Remarks The patient is more SOB today. Desaturated overnight. IVF turned off. Last dose of Eliquis was Saturday morning. IAN/cardioversion canceled. (Shana Patel) Objective Medications Current Medications Medications (Trade) Dose Ordered Sig/Chang Route Start Time Stop Time Status Last Admin (NovoLOG SUPPLEMENTAL SCALE) 1 ACHS SLIDING SCALE SQ 07/10/17 17:00 07/12/17 08:00 (D50w (Vial) Inj) 50 ml UNSCH PRN IV PUSH 07/10/17 16:15 (Glucagon Inj) 1 mg UNSCH PRN OTHER 07/10/17 16:15 (NS Flush) 2 ml UNSCH PRN IV FLUSH 07/10/17 16:15 (NS Flush) 2 ml BID IV FLUSH 07/10/17 21:00 07/12/17 08:38 (Zofran Inj) 4 mg Q6H PRN IVP 07/10/17 16:15 07/12/17 08:37 (Compazine Supp) 25 mg Q12H PRN RECTAL 07/10/17 16:15 (Motrin) 400 mg Q6H PRN PO 07/10/17 16:15 07/12/17 08:38 (Narcan Inj) 0.4 mg UNSCH PRN IV PUSH 07/10/17 16:15 (Gilma-Colace) 1 tab BID PO 07/10/17 21:00 07/11/17 20:37 (Milk Of Magnesia Liq) 30 ml Q12H PRN PO 07/10/17 16:15 (Senokot) 17.2 mg Q12H PRN PO 07/10/17 16:15 (Dulcolax Supp) 10 mg DAILY PRN RECTAL 07/10/17 16:15 (Lactulose Liq) 30 ml DAILY PRN PO 07/10/17 16:15 (Ecotrin Ec) 325 mg DAILY PO 07/11/17 09:00 07/12/17 08:38 (Restoril) 15 mg HS PRN PO 07/10/17 16:45 07/11/17 20:54 (Betapace) 80 mg BID PO 07/10/17 21:00 07/12/17 08:37 (Xanax) 1 mg Q8H PRN PO 07/10/17 18:45 07/12/17 05:07 (Florinef) 0.1 mg BID PO 07/10/17 21:00 07/12/17 08:37 (Antivert) 12.5 mg DAILY PRN PO 07/10/17 18:45 (Pill Splitter) 1 ea UNSCH PRN OTHER 07/10/17 19:00 (Demadex) 5 mg DAILY PO 07/12/17 14:00 (Neurontin) 100 mg TID PO 07/12/17 18:00 (Synthroid) 75 mcg DAILY@0600 PO 07/12/17 13:45 (Lidoderm 5% Patch.12 Hr) 1 patch DAILY T-DERMAL 07/12/17 14:00 (Namenda) 5 mg DAILY PO 07/12/17 14:00 (KCl) 20 meq BID PO 07/12/17 14:00 (Ultram) 25 mg Q8H PRN PO 07/12/17 13:15 (Flexeril) 5 mg DAILY PRN PO 07/12/17 13:15 Miscellaneous Information 1 Q24H T-DERMAL 07/12/17 21:00 Vital Signs / I&O Vital Signs Date Time Temp Pulse Resp B/P (MAP) Pulse Ox O2 Delivery O2 Flow Rate FiO2 07/12/17 12:01 96 07/12/17 11:45 98.2 106 18 126/88 (101) 95 07/12/17 11:01 90 07/12/17 10:01 108 07/12/17 09:00 114 07/12/17 08:45 93 Nasal Cannula 2.00 07/12/17 08:45 97.6 110 18 147/97 (114) 93 07/12/17 08:00 122 07/12/17 07:01 119 07/12/17 06:00 102 07/12/17 05:00 117 07/12/17 04:00 99 07/12/17 03:08 93 Nasal Cannula 07/12/17 03:00 103 07/12/17 03:00 98.0 111 16 144/90 (108) 93 07/12/17 02:00 110 07/12/17 01:00 98 07/12/17 00:00 112 07/11/17 23:00 122 07/11/17 23:00 98.0 111 16 140/87 (104) 92 07/11/17 22:00 110 07/11/17 21:00 110 07/11/17 20:00 94 07/11/17 19:40 21 07/11/17 19:15 101 07/11/17 19:15 98.5 100 20 155/96 (115) 92 07/11/17 18:00 88 07/11/17 17:00 90 07/11/17 16:19 98.0 76 18 139/85 (103) 93 07/11/17 16:00 78 I/O 07/11/17 07/11/17 07/11/17 07/12/17 07/12/17 07/12/17 07:00 15:00 23:00 07:00 15:00 23:00 Intake Total 1543 ml 1929 ml 3429 ml 992 ml Output Total 400 ml 250 ml Balance 1143 ml 1679 ml 3429 ml 992 ml Intake Oral 480 ml 942 ml 480 ml IV Total 1063 ml 987 ml 2949 ml 992 ml Output Urine Total 400 ml 250 ml # Voids 2 2 2 # Bowel Movements 1 Physical Exam GENERAL: Ill appearing female sitting up in the chair SKIN: Warm and dry. HEAD: Normocephalic. EYES: No scleral icterus. No injection or drainage. NECK: Supple, trachea midline. CARDIOVASCULAR: Irreg irreg, murmur RESPIRATORY: Breath sounds equal bilaterally. Very diminished right base. Poor inspiratory effort. GASTROINTESTINAL: Abdomen soft, non-tender, nondistended. MUSCULOSKELETAL: No cyanosis BACK: Nontender without obvious deformity. No CVA tenderness. Laboratory Laboratory Tests Test 07/12/17 05:51 Random Cortisol 31.1 MCG/DL Imaging Last 72 hours Impressions Chest X-Ray 07/10/17 0000 Signed Impressions: Service Date/Time: Monday, July 10, 2017 20:53 - CONCLUSION: Moderate cardiomegaly has developed and there is suspected mild failure. Larry Luu MD (Shana Patel) Assessment and Plan Assessment and Plan Symptomatic atrial fibrillation with RVR Aortic regurgitation History of hypotension Adrenal insufficiency SOB PLAN Continue Sotalol . Add cardizem LA 120 for HR > 110 CXR now. Suspect CHF. Resume Eliquis 5 mg BID, first dose 2100. Stop ASA Discussed the case in detail with Dr Nuñez The patient was seen and evaluated by Dr Garvey who completed face to face encounter, physical exam and participated in evaluation and management (Shana Patel) Assessment and Plan The exam, history, and the medical decision-making described in the above note were completed with the assistance of the mid-level provider. I reviewed and agree with the findings presented. I attest that I had a [id number] encounter with the patient on the same day, and personally performed and documented my assessment and findings in the medical record. Very ill looking , discussed with Dr Macisa (Jordi Garvey MD) Shana Patel Jul 12, 2017 15:36 Jordi Garvey MD Jul 12, 2017 16:03
--- NOTE | 2017-07-12 15:55 | RADRPT ---
EXAM DATE/TIME: 07/12/2017 15:32 [facility] COMPARISON: CHEST PA & LAT, August 31, 2014, 14:01. INDICATIONS : Shortness of breath. MEDICAL HISTORY : Hypertension. Diabetes mellitus type II. A-fib. SURGICAL HISTORY : None. ENCOUNTER: Subsequent ACUITY: 3 days PAIN SCORE: 0/10 LOCATION: chest FINDINGS: Enlargement of the cardiac silhouette with indistinct central pulmonary vascularity. Mild diffuse int erstitial prominence with small bilateral pleural effusions and mild bibasilar airspace disease. Comp ression fracture with cement augmentation at L1. Remainder of exam is unchanged. CONCLUSION: 1. Cardiomegaly with pulmonary vascular congestion. 2. Small bilateral pleural effusions with associated lower lobe airspace disease, likely compressive atelectasis. Raymundo Velazco MD on July 12, 2017 at 15:50 Board Certified Radiologist. This report was verified electronically.
[2017-07-12] MEDS: TORSEMIDE 5 MG TAB PO SCH (16:09)
[2017-07-12] MEDS: LEVOTHYROXINE SODIUM 75 MCG TAB PO SCH (16:09)
[2017-07-12] MEDS: MEMANTINE HCL 5 MG TAB PO SCH (16:09)
[2017-07-12] MEDS: LIDOCAINE HCL 5% PATCH T-DERMAL SCH (16:10)
[2017-07-12] MEDS: POTASSIUM CHLORIDE 20 MEQ CONTROLLED RELEASE TAB PO SCH ×2 (16:12→21:19)
[2017-07-12] MEDS: GABAPENTIN 100 MG CAP PO SCH (18:07)
[2017-07-12] MEDS: FUROSEMIDE 40 MG/4 ML VIAL IV PUSH SCH (18:08)
[2017-07-12] MEDS: METOLAZONE 5 MG TAB PO SCH (18:41)
--- NOTE | 2017-07-12 19:49 | HHI.PR ---
Subjective Remarks Nursing reports no acute deteriorations since last night, pt does notably desaturate to the 80s while lying flat. Pt herself says she's not fully back to normal. when asked about why she's taking short breaths upon command for deep ones, she can't explain. Objective Vital Signs Date Time Temp Pulse Resp B/P (MAP) Pulse Ox O2 Delivery O2 Flow Rate FiO2 07/12/17 17:01 90 07/12/17 16:01 84 07/12/17 15:30 98.0 94 16 115/72 (86) 96 07/12/17 15:00 83 07/12/17 14:00 100 07/12/17 13:00 84 07/12/17 12:01 96 07/12/17 11:45 98.2 106 18 126/88 (101) 95 07/12/17 11:01 90 07/12/17 10:01 108 07/12/17 09:00 114 07/12/17 08:45 93 Nasal Cannula 2.00 07/12/17 08:45 97.6 110 18 147/97 (114) 93 07/12/17 08:00 122 07/12/17 07:01 119 07/12/17 06:00 102 07/12/17 05:00 117 07/12/17 04:00 99 07/12/17 03:08 93 Nasal Cannula 07/12/17 03:00 103 07/12/17 03:00 98.0 111 16 144/90 (108) 93 07/12/17 02:00 110 07/12/17 01:00 98 07/12/17 00:00 112 07/11/17 23:00 122 07/11/17 23:00 98.0 111 16 140/87 (104) 92 07/11/17 22:00 110 07/11/17 21:00 110 07/11/17 20:00 94 I/O 07/11/17 07/11/17 07/11/17 07/12/17 07/12/17 07/12/17 07:00 15:00 23:00 07:00 15:00 23:00 Intake Total 1543 ml 1929 ml 3429 ml 992 ml 360 ml Output Total 400 ml 250 ml Balance 1143 ml 1679 ml 3429 ml 992 ml 360 ml Intake Oral 480 ml 942 ml 480 ml 360 ml IV Total 1063 ml 987 ml 2949 ml 992 ml Output Urine Total 400 ml 250 ml # Voids 2 2 2 4 # Bowel Movements 1 0 Result Diagram: 07/11/1741907/11/17419 Objective Remarks Regular rate, irregular rhythm, no JVD noted No acute distress, lying in bed, awake breath sounds are diminshed in the bases, no crackles or rales A/P Assessment and Plan 77-year-old white female admitted for A. fib with RVR. SOB - new problem, pulmonary edema noted on my independent review of plain film ordered w/ effusion on left side, will order US thoracentesis and diurese w/ IV lasix BID and metolazone, stopping IVFs Atrial fibrillation with rapid ventricular response - continuing sotalol loading per cardiology, since pt hasn't been on eliquis since admission, cardioversion to be postponed for now until after discharge, continue rate control, will hold next dose of lovenox until after thoracentesis since radiology wants thinners held. Chronic syncope followed by Dr. HERNANDEZ Shortness of breath continue on oxygen as needed Generalized weakness we'll get physical therapy and occupational therapy to eval and treat Vertigo - continue meclizine as needed Seizures monitor Diabetes mellitus type 2 continue on sliding scale coverage with Accu-Cheks before meals and at bedtime - controlled under 200s Adrenal insufficiency continue on home medications Chronic lower extremity edema Chronic back pain PT Discussed Condition With Discussed with RN discussed with patient and family as well as with Jhonatan Storm MD Jul 12, 2017 19:49
[2017-07-12] MEDS ORDERED: APIXABAN 5 MG TABLET PO SCH (21:00)
[2017-07-12] MEDS: REMOVE OLD LIDOCAINE PATCH T-DERMAL SCH (21:00)
[2017-07-12] MEDS: TEMAZEPAM 15 MG CAP PO PRN (21:22)
[2017-07-13] VITALS (30 sets, daily range): BP systolic 100–146; BP diastolic 65–88; PULSE 80–132; RESP 16–18; TEMP 97.9–98.5; O2SAT 92–97
[2017-07-13] MEDS: traMADol HCL 50 MG TAB PO PRN (02:42)
[2017-07-13] MEDS: ONDANSETRON HCL 4 MG/2 ML VIAL IVP PRN (03:23)
[2017-07-13 06:01] LABS: HEMATOCRIT 44.9 % (35.0-46.0)
[2017-07-13] MEDS: LEVOTHYROXINE SODIUM 75 MCG TAB PO SCH (06:20)
[2017-07-13] MEDS: IBUPROFEN 400 MG TAB PO PRN ×3 (06:23→20:50)
[2017-07-13] MEDS: INSULIN ASPART SUPPLEMENTAL SCALE SQ SCH ×4 (08:00→21:00)
[2017-07-13] MEDS: POTASSIUM CHLORIDE 20 MEQ CONTROLLED RELEASE TAB PO SCH ×2 (09:00→20:50)
[2017-07-13] MEDS: SODIUM CHLORIDE 0.9% FLUSH 10 ML FLUSH IV FLUSH SCH ×2 (09:00→20:51)
[2017-07-13] MEDS: LISINOPRIL 5 MG TAB PO SCH ×2 (09:00→09:01)
[2017-07-13] MEDS: FUROSEMIDE 40 MG/4 ML VIAL IV PUSH SCH ×2 (09:01→18:00)
[2017-07-13] MEDS: TORSEMIDE 5 MG TAB PO SCH (09:01)
[2017-07-13] MEDS: SOTALOL HCL 80 MG TAB PO SCH ×2 (09:02→20:50)
[2017-07-13] MEDS: DOCUSATE SODIUM 50 MG/SENNA 8.6 MG TAB PO SCH ×2 (09:02→20:50)
[2017-07-13] MEDS: GABAPENTIN 100 MG CAP PO SCH ×3 (09:03→18:00)
[2017-07-13] MEDS: FLUDROCORTISONE ACETATE 0.1 MG TAB PO SCH ×2 (09:03→20:50)
[2017-07-13] MEDS: MEMANTINE HCL 5 MG TAB PO SCH (09:04)
[2017-07-13] MEDS: LIDOCAINE HCL 5% PATCH T-DERMAL SCH (09:04)
[2017-07-13] MEDS: METOLAZONE 5 MG TAB PO SCH (09:05)
[2017-07-13] MEDS ORDERED: LIDOCAINE HCL 2% 100 MG/5 ML SYRINGE ONE (11:05)
[2017-07-13] MEDS ORDERED: ATROPINE SULFATE 1 MG/10 ML SYRINGE ONE (11:05)
[2017-07-13] MEDS ORDERED: EPINEPHrine HCL (1:10,000) 1 MG/10 ML SYRINGE ONE (11:05)
[2017-07-13] MEDS ORDERED: LIDOCAINE HCL 1% 20 ML VIAL ONE (12:11)
--- NOTE | 2017-07-13 12:17 | RADRPT ---
EXAM DATE/TIME: 07/12/2017 16:31 [facility] COMPARISON: US CAROTID ARTERIES, January 25, 2016, 18:25. INDICATIONS : Pleural effusion. MEDICAL HISTORY : Hypertension. Dizziness. Numbness. Atrial fibrillation. Dyspnea. Diabetes. Urinary tract infection. Skin cancer. SURGICAL HISTORY : Tonsillectomy. Hysterectomy. Cataract surgery. Back surgery. ENCOUNTER: Initial ACUITY: 1 day PAIN SCORE: 2/10 LOCATION: Left chest FLUID: Total volume of 400 cc of cloudy, yellow fluid was removed. Fluid was discarded. Thoracentesis was therapeutic only. TECHNIQUE: 1. Ultrasound guidance for thoracentesis. 2. Thoracentesis. The risks, benefits, and alternatives to ultrasound guided thoracentesis were explained to the patien t in lay simple terms, including the risk of bleeding and infection. Written and verbal informed con sent was obtained. Appropriate area for thoracentesis was marked under ultrasound guidance with the patient in the uprig ht position. Overlying skin was prepped and draped in the usual sterile fashion and with local anest hetic, a dermatotomy was made with an 11 blade scalpel. A 6 [place] thoracentesis catheter was placed in the pleural space and fluid was removed. Catheter was then removed and a sterile dressing applie d. There were no immediate complications. The patient tolerated the procedure well and the left the ultrasound suite in stable condition. Chest radiograph is to be obtained. CONCLUSION: Uncomplicated ultrasound guided thoracentesis. Hussain Castelan MD on July 13, 2017 at 12:15 Board Certified Radiologist. This report was verified electronically.
--- NOTE | 2017-07-13 12:18 | RADRPT ---
EXAM DATE/TIME: 07/13/2017 11:53 [facility] COMPARISON: CHEST PA & LAT, July 12, 2017, 15:32. INDICATIONS : Thoracentesis. MEDICAL HISTORY : Hypertension. Diabetes mellitus type II. A-fib. SURGICAL HISTORY : None. ENCOUNTER: Initial ACUITY: 1 day PAIN SCORE: 0/10 LOCATION: Bilateral chest FINDINGS: The heart is enlarged. There is significant interval reduction in the left pleural effusion. No pneum othorax is seen. There is a small effusion remaining on the right. There are basilar atelectatic osorio ges bilaterally. The bony structures are intact. CONCLUSION: 1. No pneumothorax identified post left thoracentesis. 2. Significant interval reduction in the size of the patient's pleural effusion. Hussain Castelan MD on July 13, 2017 at 12:15 Board Certified Radiologist. This report was verified electronically.
[2017-07-13] MEDS: ALPRAZolam 0.25 MG TAB PO PRN ×2 (12:46→21:03)
--- NOTE | 2017-07-13 15:10 | HHI.PR ---
Subjective Remarks Nursing reports no acute deteriorations since last night. Patient saturating at 93-94% on 2 L. Patient says that her shortness of breath is improved but still a little persistent. Tolerated procedure well and says that the Lasix kept her up all night urinating Objective Vital Signs Date Time Temp Pulse Resp B/P (MAP) Pulse Ox O2 Delivery O2 Flow Rate FiO2 07/13/17 14:00 92 07/13/17 13:00 80 07/13/17 12:10 98.0 92 16 108/65 (79) 93 07/13/17 12:00 93 07/13/17 11:00 81 07/13/17 10:00 96 07/13/17 09:30 92 Nasal Cannula 2.00 07/13/17 09:00 94 07/13/17 08:00 104 07/13/17 07:30 94 2.00 07/13/17 07:20 97.9 103 16 128/79 (95) 94 07/13/17 07:00 132 07/13/17 06:00 100 07/13/17 05:00 100 07/13/17 04:00 110 07/13/17 03:40 102 18 146/88 (107) 97 07/13/17 03:00 108 07/13/17 02:00 98 07/13/17 01:00 90 07/13/17 00:00 100 07/12/17 23:23 98 20 135/81 (99) 94 07/12/17 23:00 114 07/12/17 22:00 110 07/12/17 21:00 104 07/12/17 20:28 96 Nasal Cannula 2.00 07/12/17 20:00 108 07/12/17 19:50 97.5 91 18 150/88 (108) 96 07/12/17 19:47 92 07/12/17 19:00 97 07/12/17 17:01 90 07/12/17 16:01 84 07/12/17 15:30 98.0 94 16 115/72 (86) 96 I/O 07/12/17 07/12/17 07/12/17 07/13/17 07/13/17 07/13/17 07:00 15:00 23:00 07:00 15:00 23:00 Intake Total 3429 ml 992 ml 360 ml 400 ml Output Total 1900 ml Balance 3429 ml 992 ml 360 ml -1500 ml Intake Oral 480 ml 360 ml 400 ml IV Total 2949 ml 992 ml Output Urine Total 1900 ml # Voids 2 4 # Bowel Movements 0 0 Result Diagram: 07/13/172 07/11/17 042 Objective Remarks Regular rate, irregular rhythm, no JVD noted No acute distress, lying in bed, awake breath sounds are diminshed in the bases, no crackles or rales A/P Assessment and Plan 77-year-old white female admitted for A. fib with RVR. Pulmonary edema - likely from fluid overload, diuresing well, we'll continue to diurese for another 18 hours, improved status post thoracentesis Atrial fibrillation - stable rate on sotalol, will resume Lovenox shots in case any further procedures are warranted inpatient, we'll transition to a eliquis upon d/c and to be reassessed for cardioversion as outpatient Chronic syncope followed by Dr. HERNANDEZ Shortness of breath continue on oxygen as needed Debility/ - walker, continue physical therapy Vertigo - continue meclizine as needed Seizures monitor Diabetes mellitus type 2 continue on sliding scale coverage with Accu-Cheks before meals and at bedtime - controlled under 200s Adrenal insufficiency continue on home medications Chronic lower extremity edema Chronic back pain PT Jhonatan Nuñez MD Jul 13, 2017 15:10
[2017-07-13] MEDS ORDERED: POTASSIUM CHLORIDE 10 MEQ CONTROLLED RELEASE TAB PO ONE (15:15)
[2017-07-13] MEDS ORDERED: ENOXAPARIN SODIUM 30 MG/0.3 ML SYRINGE SQ SCH (16:00)
[2017-07-13] MEDS: REMOVE OLD LIDOCAINE PATCH T-DERMAL SCH (21:00)
[2017-07-14] VITALS (17 sets, daily range): BP systolic 94–114; BP diastolic 52–60; PULSE 78–107; RESP 16–17; TEMP 97.9–98.6; O2SAT 92–94
[2017-07-14] MEDS: traMADol HCL 50 MG TAB PO PRN (03:07)
[2017-07-14] MEDS: LEVOTHYROXINE SODIUM 75 MCG TAB PO SCH (05:39)
[2017-07-14 06:53] LABS: AUTOMATED NEUTROPHIL # 4.6 TH/MM3 (1.8-7.7); BASOPHIL % 0.6 % (0.0-2.0); EOSINOPHIL # 0.2 TH/MM3 (0-0.4); EOSINOPHIL % 2.8 % (0.0-4.0); HEMATOCRIT 40.1 % (35.0-46.0); HEMO FLAGS DIFF FINAL; LYMPH % 17.9 % (9.0-44.0); LYMPHOCYTE # 1.3 TH/MM3 (1.0-4.8); MEAN CELL VOLUME 93.9 FL (80.0-100.0); MEAN CORPUSCULAR HEMOGLOBIN 31.5 PG (27.0-34.0); MEAN CORPUSCULAR HGB CONC 33.5 % (32.0-36.0); MONO % 14.9 % (0.0-8.0); NEUT % 63.8 % (16.0-70.0); PLATELET COUNT 215 TH/MM3 (150-450); RED BLOOD COUNT 4.27 MIL/MM3 (4.00-5.30); RED CELL DISTRIBUTION WIDTH 13.5 % (11.6-17.2); WHITE BLOOD COUNT 7.2 TH/MM3 (4.0-11.0)
[2017-07-14 07:01] LABS: BICARBONATE 31.5 MEQ/L (21.0-32.0); POTASSIUM 3.6 MEQ/L (3.5-5.1)
[2017-07-14] MEDS: INSULIN ASPART SUPPLEMENTAL SCALE SQ SCH ×2 (08:00→12:00)
[2017-07-14] MEDS: LISINOPRIL 5 MG TAB PO SCH (08:40)
[2017-07-14] MEDS: SOTALOL HCL 80 MG TAB PO SCH (08:41)
[2017-07-14] MEDS: FLUDROCORTISONE ACETATE 0.1 MG TAB PO SCH (08:41)
[2017-07-14] MEDS: GABAPENTIN 100 MG CAP PO SCH ×2 (08:41→12:46)
[2017-07-14] MEDS: IBUPROFEN 400 MG TAB PO PRN (08:41)
[2017-07-14] MEDS: ALPRAZolam 0.25 MG TAB PO PRN (08:41)
[2017-07-14] MEDS: MEMANTINE HCL 5 MG TAB PO SCH (08:41)
[2017-07-14] MEDS: POTASSIUM CHLORIDE 20 MEQ CONTROLLED RELEASE TAB PO SCH (08:41)
[2017-07-14] MEDS: FUROSEMIDE 40 MG/4 ML VIAL IV PUSH SCH (08:42)
[2017-07-14] MEDS: METOLAZONE 5 MG TAB PO SCH (08:42)
[2017-07-14] MEDS: DOCUSATE SODIUM 50 MG/SENNA 8.6 MG TAB PO SCH (08:42)
[2017-07-14] MEDS: LIDOCAINE HCL 5% PATCH T-DERMAL SCH (08:43)
[2017-07-14] MEDS: SODIUM CHLORIDE 0.9% FLUSH 10 ML FLUSH IV FLUSH SCH (08:43)
[2017-07-14] MEDS ORDERED: APIXABAN 5 MG TABLET PO SCH (09:00)
[2017-07-14] MEDS ORDERED: METOCLOPRAMIDE HCL 10 MG/2 ML VIAL IV PUSH ONE (11:00)
[2017-07-14] MEDS ORDERED: APIX5TAB PO (13:24)
[2017-07-14] MEDS ORDERED: SOTA80 PO (13:25)
[2017-07-14] MEDS ORDERED: REGL10TA5 PO (14:12)
--- NOTE | 2017-07-14 14:13 | HHI.DCPOC ---
Discharge Care Plan Diagnosis: (1) Chronic atrial fibrillation with RVR (2) Pulmonary edema Your Health Problems Are: Shortness of Breath Goals to Promote Your Health * To prevent worsening of your condition and complications * To maintain your health at the optimal level Directions to Meet Your Goals Take your medications as prescribed Follow your dietary instruction Follow activity as directed Keep your appointments as scheduled Take your immunizations and boosters as scheduled If your symptoms worsen call your PCP, if no PCP go to Urgent Care Center or Emergency Room Smoking is Dangerous to Your Health. Avoid second hand smoke Call the 24-hour hour crisis hotline for domestic abuse at Jhonatan Nuñez MD Jul 14, 2017 14:13
--- NOTE | 2017-07-14 14:15 | ECHRPT ---
Indication: cardiomyopathy CONCLUSIONS The left ventricular systolic function is normal with an estimated ejection fraction in the range of 60-65%. Normal left ventricular size. Wall thickness is normal. No regional wall motion abnormalities are present. Moderate mitral annular calcification. Umevt-ou-humu mitral valve regurgitation. Diffuse calcification of the aortic valve. Mild aortic valve regurgitation. There is trace tricuspid valve regurgitation. The estimated pulmonary arterial pressure is 39.4 mmHg. Mild pulmonary valve regurgitation. There is a moderate pericardial effusion present. The pericardial effusion is partially loculated with fibrinous strands. No hemodynamically significant echocardiographic features were observed (no pre-tamponade physiology). BP: 94 / 52 HR: 66 Rhythm: Atrial fibrillation MEASUREMENTS (Male / Female) Normal Values Technical Quality:Fair 2D ECHO LV Diastolic Diameter PLAX 4.1 cm 4.2 - 5.9 / 3.9 - 5.3 cm LV Systolic Diameter PLAX 2.8 cm IVS Diastolic Thickness 1.1 cm 0.6 - 1.0 / 0.6 - 0.9 cm LVPW Diastolic Thickness 1.1 cm 0.6 - 1.0 / 0.6 - 0.9 cm LV Relative Wall Thickness 0.6 RV Internal Dim ED PLAX 2.4 cm LVOT Diameter 2.0 cm LA Systolic Diameter LX 4.0 cm 3.0 - 4.0 / 2.7 - 3.8 cm LV Ejection Fraction MOD 4C 60.0 % LV Cardiac Index MOD 4C 1495.4 cm/minm LV Ejection Fraction 4C AL 61.8 % LV Cardiac Index 4C AL 1589.9 cm/minm M-MODE Aortic Root Diameter MM 2.7 cm LA Systolic Diameter MM 3.9 cm LA Ao Ratio MM 1.4 AV Cusp Separation MM 1.6 cm DOPPLER AV Peak Velocity 181.0 cm/s AV Peak Gradient 13.1 mmHg AI Peak Velocity 300.5 cm/s AI Peak Gradient 36.1 mmHg AI Pressure Half Time 486.5 ms LVOT Peak Velocity 121.0 cm/s LVOT Peak Gradient 5.9 mmHg AV Area Cont Eq pk 2.1 cm MV Peak Velocity 186.0 cm/s MV Peak Gradient 13.8 mmHg MV Mean Velocity 89.0 cm/s MV Mean Gradient 4.0 mmHg MV Area PHT 2.7 cm LV E' Lateral Velocity 6.0 cm/s LV E' Septal Velocity 6.7 cm/s TR Peak Velocity 271.0 cm/s TR Peak Gradient 29.4 mmHg Right Atrial Pressure 10.0 mmHg Pulmonary Artery Systolic Pressu 39.4 mmHg Right Ventricular Systolic Press 39.4 mmHg PV Peak Velocity 100.0 cm/s PV Peak Gradient 4.0 mmHg FINDINGS LEFT VENTRICLE The left ventricular systolic function is normal with an estimated ejection fraction in the range of 60-65%. Normal left ventricular size. Wall thickness is normal. No regional wall motion abnormalities are present. RIGHT VENTRICLE Normal right ventricular size and systolic function. LEFT ATRIUM The left atrial size is normal. RIGHT ATRIUM The right atrial size is normal. ATRIAL SEPTUM Normal atrial septal thickness without atrial level shunting by limited color doppler interrogation. AORTA The aortic root and proximal ascending aorta are normal in size on limited imaging. MITRAL VALVE Moderate mitral annular calcification. [id number] mitral valve regurgitation. AORTIC VALVE Diffuse calcification of the aortic valve. Mild aortic valve regurgitation. TRICUSPID VALVE There is trace tricuspid valve regurgitation. The estimated pulmonary arterial pressure is 39.4 mmHg. PULMONARY VALVE Mild pulmonary valve regurgitation. VESSELS The inferior vena cava is normal in size. PERICARDIUM There is a moderate pericardial effusion present. The pericardial effusion is partially loculated with fibrinous strands. No hemodynamically significant echocardiographic features were observed (no pre-tamponade physiology). Benny Dawson MD (Electronically Signed) Final Date:14 July 2017 14:14
--- NOTE | 2017-07-14 14:18 | HHI.DS ---
Discharge Summary Admission Date Jul 10, 2017 at 15:35 Discharge Date: Jul 14, 2017 Admitting Diagnosis AFIB WITH RVR BEING STARTED ON SOTALOL (1) Impaired gait ICD Code: R26.9 - Impaired gait Status: Chronic (2) Lumbar degenerative disc disease ICD Code: M51.36 - Degeneration of lumbar intervertebral disc Status: Chronic (3) Chronic pain ICD Code: G89.29 - Chronic pain Status: Chronic (4) HTN (hypertension) ICD Code: I10 - Hypertension Status: Chronic (5) Atrial fibrillation ICD Code: I48.91 - Unspecified atrial fibrillation Status: Chronic (6) Diabetes ICD Code: E11.9 - Type 2 diabetes mellitus without complications (7) Seizure ICD Code: R56.9 - Unspecified convulsions Status: Acute (8) Balance problem ICD Code: R26.89 - Other abnormalities of gait and mobility Status: Acute (9) Chronic atrial fibrillation with RVR ICD Code: I48.2 - Chronic atrial fibrillation Diagnosis: Principal Status: Acute Procedures left sided thoracentesis Brief History - From Admission Patient is a 77-year-old female. Who presents to the hospital as a direct admission from Dr. GARVEY OFFICE. Patient is noted to be in atrial fibrillation with RVR. Will be sent as a direct admission to load sotalol Patient's medications will need to be adjusted. Patient has chronic anticoagulation on Eliquis diabetes mellitus. Anxiety hypothyroidism depression CBC/BMP: 07/14/17 0557 07/14/17 0557 Significant Findings Laboratory Tests Test 07/12/17 05:51 07/12/17 17:49 07/13/17 03:42 07/14/17 05:57 Monocytes (%) (Auto) 14.9 % (0.0-8.0) Monocytes # (Auto) 1.1 TH/MM3 (0-0.9) Blood Urea Nitrogen 23 MG/DL (7-18) Random Glucose 179 MG/DL (74-106) Estimat Glomerular Filtration Rate 71 ML/MIN (>89) B-Type Natriuretic Peptide 199 PG/ML (0-100) Imaging Last Impressions Thoracentesis Ultrasound 07/13/17 0000 Signed Impressions: Service Date/Time: Wednesday, July 12, 2017 16:31 - CONCLUSION: Uncomplicated ultrasound guided thoracentesis. Hussain Castelan MD Chest X-Ray 07/13/17 0000 Signed Impressions: Service Date/Time: Thursday, July 13, 2017 11:53 - CONCLUSION: 1. No pneumothorax identified post left thoracentesis. 2. Significant interval reduction in the size of the patient's pleural effusion. Hussain Castelan MD PE at Discharge NAD clear BS BL, unlabored breathing hrt sounds reg rate, irregular rhythm Hospital Course Pt was admitted, started on sotalol loading w/ cardiology consulted. The patient was originally scheduled for a cardioversion in-house, however, there was a question of her not having taken her eliquis consistently near the time of admission. Therefore cardioversion was aborted and the patient was maintained on rate control with sotalol. The patient did become mildly hypoxic and short of breath, was found to have pulmonary edema likely secondary to fluid overload. The patient was diagnosed aggressively and underwent a left- sided thoracentesis with good results. Her hypoxia resolved, and her echocardiogram was unremarkable. On her last day of hospitalization the patient reported having a headache which improved significantly with Reglan administration and was able to tolerate by mouth intake well. The patient has met maximum benefit from hospitalization and is clinically stable for discharge. Pt Condition on Discharge: Stable Discharge Disposition: Discharge Home Discharge Time: > 30 minutes Discharge Instructions DIET: Follow Instructions for: Heart Healthy Diet Activities you can perform: Weight Bearing as Aydin Other Activity Instructions: use home walker Follow up Referrals: Cardiology - 10 Days with Jordi Garvey MD PCP Follow-up - 1 Week New Medications: Metoclopramide (Reglan) 10 Mg Tab 10 MG PO BID PRN for headache, #60 TAB 0 Refills Sotalol (Sorine) 80 Mg Tab 80 MG PO BID for afib, #60 TAB Continued Medications: Alprazolam (Xanax) 0.5 Mg Tab 1 MG PO Q8H PRN for ANXIETY, #20 TAB Amlodipine (Norvasc) 5 Mg Tab 5 MG PO DAILY for 30 Days, TAB Apixaban (Eliquis) 5 Mg Tab 5 MG PO BID for Blood Clot Prevention, #60 TAB 0 Refills Cyclobenzaprine (Flexeril) 10 Mg Tab 5 MG PO DAILY PRN for spasms, #20 TAB Docusate Sodium (Dok) 100 Mg Cap 100 MG PO DAILY PRN for Constipation for 30 Days, CAP Fludrocortisone (Fludrocortisone) 0.1 Mg Tab 0.1 MG PO BID for 30 Days, TAB Gabapentin (Gabapentin) 100 Mg Cap 100 MG PO TID, #90 CAP 0 Refills Hydralazine (Hydralazine) 25 Mg Tab 25 MG PO Q8HR for 30 Days, TAB Levothyroxine (Synthroid) 75 Mcg Tab 75 MCG PO DAILY@0600 for 30 Days, TAB Lidocaine Patch 12 HR (Lidoderm Patch 12 HR) 5% Patch 1 PATCH TD DAILY for 30 Days Meclizine (Meclizine) 12.5 Mg Tab 12.5 MG PO DAILY PRN for VERTIGO, TAB 0 Refills Memantine (Namenda) 5 Mg Tab 5 MG PO DAILY for 30 Days, TAB Potassium Chloride Microencaps (Potassium Chloride Microencaps) 20 Meq Tab 20 MEQ PO BID for 14 Days, TAB Torsemide (Torsemide) 5 Mg Tab 5 MG PO DAILY, TAB 0 Refills Tramadol (Ultram) 50 Mg Tab 25 MG PO Q8H PRN for PAIN SCALE 6 TO 10, #30 TAB [Miconazole 2% Cream] () 15 APPLIC/15 GM CR 1 APPLIC TOPICAL BID@09,20 for 14 Days, TUBE Discontinued Medications: Nadolol (Corgard) 40 Mg Tab 40 MG PO DAILY for 30 Days, TAB Jhonatan Nuñez MD Jul 14, 2017 14:18
== END 2017-07-14 16:42 | disposition home or self-care (01) | DRG 309 ==
LOC: HCIN 15:35
PROVIDERS: ADMIT Hospitalist; ATTEND Hospitalist
PROC: 0W9B3ZZ Drainage of Left Pleural Cavity, Percutaneous Approach (ICD-10-PCS; principal; 2017-07-13)
DX: I48.91 Unspecified atrial fibrillation (principal); E27.40 Unspecified adrenocortical insufficiency; J81.1 Chronic pulmonary edema; J90 Pleural effusion, not elsewhere classified; G89.29 Other chronic pain; E87.70 Fluid overload, unspecified; F32.9 Major depressive disorder, single episode, unspecified; E03.9 Hypothyroidism, unspecified; F41.9 Anxiety disorder, unspecified; Z79.01 Long term (current) use of anticoagulants; Z87.891 Personal history of nicotine dependence; I08.0 Rheumatic disorders of both mitral and aortic valves; Z79.84 Long term (current) use of oral hypoglycemic drugs; R26.9 Unspecified abnormalities of gait and mobility; M51.36 Other intervertebral disc degeneration, lumbar region; R42 Dizziness and giddiness; Z66 Do not resuscitate
CPT/HCPCS: 32555; 71010; 71020; 76937; 80048; 80053; 81001; 82533; 82550; 82948; 83036; 83735; 83880; 84100; 84145; 84439; 84443; 84484; 85014; 85018; 85025; 85049; 85610; 85730; 93005; 93306; C1729; J0171; J0461; J1650; J1815; J1940; J2405; J2765; J7030

== ENCOUNTER 2017-07-22 18:32 | Inpatient (IN) | payer MEDICARE ==
[~2017-07-22] VITALS: Ht 162.6 cm; Wt 67.5 kg
[~2017-07-22 18:32] MED LIST changes: +APIX5TAB PO; -NADO1TAB17 PO; +REGL10TA5 PO; +SOTA80 PO
[2017-07-22 18:34] VITALS: BP 142/65; PULSE 83; RESP 17; TEMP 97.7; O2SAT 93
[2017-07-22] MEDS ORDERED: DIGO0.12 PO (19:29)
[2017-07-22] MEDS ORDERED: CENTCHW3 (19:29)
[2017-07-22] MEDS ORDERED: ALPR.25 PO (19:29)
[2017-07-22] MEDS ORDERED: JANU50TA4 PO (19:29)
[2017-07-22] MEDS ORDERED: DILT120T PO (19:29)
[2017-07-22] MEDS ORDERED: HYDR5TAB64 PO ×3 (19:29)
[2017-07-22] MEDS ORDERED: SYNT25TA PO (19:29)
[2017-07-22 19:37] VITALS: BP 148/69; PULSE 79; RESP 18; O2SAT 95
[2017-07-22] MEDS ORDERED: SODIUM CHLORIDE 0.9% FLUSH 10 ML FLUSH IVF PRN ×2 (19:45→23:00)
--- NOTE | 2017-07-22 19:49 | PD ---
HPI Chief Complaint: Cardiac Complaint Time Seen by Provider: 19:38 Travel History International Travel<30 days: No Contact w/Intl Traveler<30days: No Traveled to known affect area: No History of Present Illness HPI 77-year-old female presents to the emergency department by private transportation from her thread puller office Dr. Garvey for evaluation of increasing shortness of breath 4-5 days with possible CHF. Patient was recently hospitalized 07/11/17 for atrial fibrillation with plan to perform cardiac ablation however patient was not able to be scheduled to have this performed but was identified during that hospitalization to have a left pleural effusion and underwent thoracentesis. Patient was discharged on a Saturday and is now 8 days post hospitalization and was at her thread puller's office today as a scheduled follow-up when she mentioned her symptoms and her thread puller felt she needed to come to the emergency room. Patient also complains of a new complaint of chest heaviness 7/10 in intensity. Patient does not report any referred neck jaw back shoulder arm pain. Patient does also mentions some mild swelling of her ankles. Patient was not administered any diuretic in the office. Patient denies having any fever but has had cough productive of some mucus. No report of hemoptysis. Patient has had increasing chills. Patient has also history of atrial fibrillation, anticoagulation with Eliquis, hypothyroidism, hypertension, diabetes, anxiety, vertigo, anxiety depression, chronic low back pain with previous lumbar surgery and kyphoplasty, and headaches. Patient is unable to identify exacerbating or alleviating factors. PFSH Past Medical History Narrative Medical of atrial fibrillation, anticoagulation with Eliquis, hypopituitarism w/ adrenal insufficiency, hypothyroidism, hypertension, diabetes, anxiety, vertigo , anxiety depression, chronic low back pain with previous lumbar surgery and kyphoplasty, headaches; tonsillectomy and cataract surgery thoracentesis hysterectomy; no tobacco use; nursing notes reviewed Hx Anticoagulant Therapy: Yes Arthritis: No Asthma: No Autoimmune Disease: No Blood Disorders: No Anxiety: Yes Depression: Yes Heart Rhythm Problems: Yes (recent afib) Cancer: Yes (skin cancer on forehead) Cardiovascular Problems: Yes High Cholesterol: No Chemotherapy: No Chest Pain: No Congestive Heart Failure: No COPD: No Cerebrovascular Accident: No Diabetes: Yes (Type 2) Patient Takes Glucophage: No Diminished Hearing: No Endocrine: No GERD: No Genitourinary: No Headaches: Yes (recently has been having headaches) Hepatitis: No Hiatal Hernia: No Hypertension: Yes (DX 1994) Immune Disorder: No Implanted Vascular Access Dvce: Yes Kidney Stones: No Musculoskeletal: Yes Neurologic: Yes Psychiatric: Yes Reproductive: No Respiratory: Yes Migraines: No Radiation Therapy: No Renal Failure: No Seizures: No Sickle Cell Disease: No Sleep Apnea: No Thyroid Disease: Yes (hypothryroid) Ulcer: No Past Surgical History Abdominal Surgery: No AICD: No Arteriovenous Shunt: No Body Medical Devices: HARDWARE IN LOW BACK FROM RECENT BACK SURGERY Cardiac Surgery: No Ear Surgery: No Endocrine Surgery: No Eye Surgery: Yes (CATARACTS SURGERY) Genitourinary Surgery: No Gynecologic Surgery: Yes (hysterectomy) Insulin Pump: No Joint Replacement: No Neurologic Surgery: Yes (BACK, L4-L5 TRANSFORMAMINAL FUSION, L4-S1 SCREW FIXATION, KYPHOPLASTY) Oral Surgery: Yes (TONSILLECTOMY) Pacemaker: No Thoracic Surgery: Yes (Back surgery) Other Surgery: Yes (SEE BELOW) Social History Alcohol Use: No Tobacco Use: No Substance Use: No Allergies-Medications (Allergen,Severity, Reaction): Coded Allergies: ibuprofen (Verified Allergy, Unknown, 07/22/17) per her doctor was told not to take because of her kidneys penicillin G (Unverified Allergy, Unknown, hives as a child, 05/28/17) oxycodone (Unverified Adverse Reaction, Mild, Hives, 05/28/17) Reported Meds & Prescriptions Reported Meds & Active Scripts Active Sorine (Sotalol HCl) 80 Mg Tab 80 Mg PO BID Potassium Chloride Microencaps 20 Meq Tab 20 Meq PO BID 14 Days Dok (Docusate Sodium) 100 Mg Cap 100 Mg PO DAILY PRN 30 Days Reported Centrum Silver (Multiple Vitamins W/ Minerals) 400 Mcg-250 Mcg Chw Hydrocortisone 5 Mg Tab 5 Mg PO AC DINNER Take with food to decrease GI upset Hydrocortisone 5 Mg Tab 5 Mg PO AC LUNCH Take with food to decrease GI upset Hydrocortisone 5 Mg Tab 1.5 Mg PO DAILY NEB Take with food to decrease GI upset Synthroid (Levothyroxine Sodium) 25 Mcg Tab 25 Mcg PO DAILY Digoxin 0.125 Mg Tab 0.125 Mg PO DAILY Diltiazem (Diltiazem HCl) 120 Mg Tab 120 Mg PO BID Xanax (Alprazolam) 0.25 Mg Tab 0.25 Mg PO Q8H PRN Janumet (Sitagliptin-Metformin) 50-500 Mg Tab 2 Tab PO DAILY Eliquis (Apixaban) 5 Mg Tab 5 Mg PO BID Torsemide 5 Mg Tab 5 Mg PO DAILY Meclizine (Meclizine HCl) 12.5 Mg Tab 12.5 Mg PO DAILY PRN Review of Systems Except as stated in HPI: all other systems reviewed are Neg General / Constitutional: Positive: Chills, No: Fever HENT: No: Congestion Cardiovascular: Positive: Chest Pain or Discomfort, Dyspnea on exertion, Edema , No: Diaphoresis Respiratory: Positive: Cough, Shortness of Breath, No: Wheezing Gastrointestinal: No: Nausea, Vomiting Genitourinary: No: Dysuria Musculoskeletal: Positive: Edema Skin: No Rash Neurologic: No: Weakness Psychiatric: No: Anxiety Hematologic/Lymphatic: No: Easy Bruising Physical Exam Narrative GENERAL: Well-developed well-nourished female in no acute distress no respiratory distress SKIN: Warm and dry. HEAD: Normocephalic. EYES: No scleral icterus. No injection or drainage. NECK: Supple, trachea midline. No JVD or lymphadenopathy. CARDIOVASCULAR: Regular rate and rhythm without murmurs, gallops, or rubs. RESPIRATORY: Breath sounds equal bilaterally diminished bibasilarly no rales no wheezing. No accessory muscle use. GASTROINTESTINAL: Abdomen soft, non-tender, nondistended. MUSCULOSKELETAL: No cyanosis, scant bilateral ankle edema. BACK: Nontender without obvious deformity. No CVA tenderness. Data Data Last Documented VS Vital Signs Date Time Temp Pulse Resp B/P (MAP) Pulse Ox O2 Delivery O2 Flow Rate FiO2 07/22/17 22:14 96 16 155/76 (102) 93 Room Air 07/22/17 18:34 97.7 Orders Orders Complete Blood Count With Diff (07/22/17 19:38) Comprehensive Metabolic Panel (07/22/17 19:38) B-Type Natriuretic Peptide (07/22/17 19:38) Act Partial Throm Time (Ptt) (07/22/17 19:38) Prothrombin Time / Inr (Pt) (07/22/17 19:38) Magnesium (Mg) (07/22/17 19:38) Ckmb (Isoenzyme) Profile (07/22/17 19:38) Troponin I (07/22/17 19:38) Urinalysis - C+S If Indicated (07/22/17 19:38) Blood Culture (07/22/17 19:38) Iv Access Insert/Monitor (07/22/17 19:38) Electrocardiogram (07/22/17 19:38) Ecg Monitoring (07/22/17 19:38) Oximetry (07/22/17 19:38) Oxygen Administration (07/22/17 19:38) Chest, Single Ap (07/22/17 19:38) Sodium Chloride 0.9% Flush (Ns Flush) (07/22/17 19:45) Furosemide Inj (Lasix Inj) (07/22/17 20:30) Nitroglycerin Sl (Nitrostat Sl) (07/22/17 21:15) Acetaminophen (Tylenol) (07/22/17 21:45) Nitroglycerin 2% Oint (Nitroglycerin 2% (07/22/17 22:00) Sotalol (Betapace) (07/22/17 22:30) Diltiazem Cd (Cardizem Cd) (07/22/17 22:30) Apixaban (Eliquis) (07/22/17 22:30) Hydrocortisone (Cortef) (07/22/17 22:30) Potassium Chloride (Kcl) (07/22/17 22:30) Place In Observation (07/22/17 ) Vital Signs (Adult) Q4H (07/22/17 22:42) Activity Oob With Assistance (07/22/17 22:42) Qc Analyst / Telemetry .CONTINUOUS (07/22/17 22:42) Intake + Output JUDIE.QSHIFT (07/22/17 22:42) Diet Heart Healthy (07/23/17 Breakfast) Sodium Chloride 0.9% Flush (Ns Flush) (07/22/17 22:45) Sodium Chloride 0.9% Flush (Ns Flush) (07/23/17 09:00) Basic Metabolic Panel (Bmp) (07/23/17 06:00) Complete Blood Count With Diff (07/23/17 06:00) Creatine Kinase (Cpk) (07/23/17 02:30) Creatine Kinase (Cpk) (07/23/17 08:30) Troponin I (07/23/17 02:30) Troponin I (07/23/17 08:30) Electrocardiogram (07/23/17 02:30) Electrocardiogram (07/23/17 08:30) Pt Request For Service (07/22/17 22:42) Case Management Consult (07/22/17 22:42) Naloxone Inj (Narcan Inj) (07/22/17 22:45) Furosemide Inj (Lasix Inj) (07/23/17 09:00) Consult Cardiology (07/22/17 ) Admit Order (Ed Use Only) (07/22/17 ) ^ Saline Lock (07/22/17 22:47) Resp Oxygen Reg C Titrat 1-4 L (07/22/17 ) Notify Dr: Other (07/22/17 22:47) Sodium Chloride 0.9% Flush (Ns Flush) (07/23/17 09:00) Sodium Chloride 0.9% Flush (Ns Flush) (07/22/17 23:00) Labs Laboratory Tests Test 07/22/17 20:10 07/22/17 20:35 Urine Color YELLOW Urine Turbidity CLEAR Urine pH 6.0 Urine Specific [place] 1.026 Urine Protein NEG mg/dL Urine Glucose (UA) NEG mg/dL Urine Ketones NEG mg/dL Urine Occult Blood NEG Urine Nitrite NEG Urine Bilirubin NEG Urine Urobilinogen LESS THAN 2.0 MG/DL Urine Leukocyte Esterase NEG Urine RBC 3 /hpf Urine WBC 1 /hpf Urine Squamous Epithelial Cells 1 /hpf Microscopic Urinalysis Comment CULT NOT INDICATED White Blood Count 7.2 TH/MM3 Red Blood Count 4.61 MIL/MM3 Hemoglobin 14.3 GM/DL Hematocrit 42.5 % Mean Corpuscular Volume 92.2 FL Mean Corpuscular Hemoglobin 30.9 PG Mean Corpuscular Hemoglobin Concent 33.5 % Red Cell Distribution Width 13.3 % Platelet Count 213 TH/MM3 Mean Platelet Volume 9.9 FL Neutrophils (%) (Auto) 66.1 % Lymphocytes (%) (Auto) 14.5 % Monocytes (%) (Auto) 16.5 % Eosinophils (%) (Auto) 2.3 % Basophils (%) (Auto) 0.6 % Neutrophils # (Auto) 4.8 TH/MM3 Lymphocytes # (Auto) 1.0 TH/MM3 Monocytes # (Auto) 1.2 TH/MM3 Eosinophils # (Auto) 0.2 TH/MM3 Basophils # (Auto) 0.0 TH/MM3 CBC Comment DIFF FINAL Differential Comment Prothrombin Time 11.2 SEC Prothromb Time International Ratio 1.0 RATIO Activated Partial Thromboplast Time 29.6 SEC Blood Urea Nitrogen 15 MG/DL Creatinine 0.59 MG/DL Random Glucose 141 MG/DL Total Protein 7.4 GM/DL Albumin 3.2 GM/DL Calcium Level 10.1 MG/DL Magnesium Level 1.8 MG/DL Alkaline Phosphatase 81 U/L Aspartate Amino Transf (AST/SGOT) 17 U/L Alanine Aminotransferase (ALT/SGPT) 18 U/L Total Bilirubin 0.3 MG/DL Sodium Level 134 MEQ/L Potassium Level 3.9 MEQ/L Chloride Level 100 MEQ/L Carbon Dioxide Level 24.1 MEQ/L Anion Gap 10 MEQ/L Estimat Glomerular Filtration Rate 98 ML/MIN Total Creatine Kinase 18 U/L Troponin I LESS THAN 0.02 NG/ML B-Type Natriuretic Peptide 203 PG/ML [facility] Medical Decision Making Medical Screen Exam Complete: Yes Emergency Medical Condition: Yes Medical Record Reviewed: Yes Interpretation(s) BNP: 203, mildly elevated EKG: Atrial fibrillation with controlled ventricular rate of 80 intermittent atrial flutter no acute ST segment elevation marked baseline artifact mild ST segment depression in lead 1 and V6 consider ischemia troponin I: less than 0.02, not elevated CBC & BMP Diagram 07/22/17 20:35 Total Protein 7.4, Albumin 3.2 L, Calcium Level 10.1, Magnesium Level 1.8, Alkaline Phosphatase 81, Aspartate Amino Transf (AST/SGOT) 17, Alanine Aminotransferase (ALT/SGPT) 18, Total Bilirubin 0.3 UA: wnl CXR: cm, vascular congestion/chf Differential Diagnosis Dyspnea, CHF, pneumonia, PE, recurrent pleural effusion, ACS, IA, anemia, GI bleed Narrative Course Patient placed on cardiac monitor technician IV access obtained specimens collected and sent for resulting EKG ordered Patient administered Lasix 40 mg IV times one dose after reviewing patient's chest x-ray which shows cardiomegaly and vascular congestion consistent with congestive heart failure and small bilateral pleural effusions Patient continues complaining of chest heaviness 6/10 in intensity administered one sublingual nitroglycerin 0.4 mg Patient complains of post nitroglycerin headache and administered Tylenol 650 mg times one dose continues to demonstrate good urine output after Lasix diuresis Patient administered nitroglycerin placed 1/2 inch to chest wall Cardiac enzymes troponin I less than 0.02, not elevated Plan is to admit patient to the hospital for ongoing gentle diuresis and serial cardiac enzymes Patient given her evening doses of evening medications including hydrocortisone 5 mg in the evening sotalol 80 mg evening dose of diltiazem 120 mg evening dose Eliquis 5 mg evening dose of potassium chloride 20 mEq evening dose call placed to [facility] service for admission Physician Communication Physician Communication patient discussed with Dr Santiago for admission Diagnosis Primary Impression: CHF (congestive heart failure) Additional Impression: Chronic atrial fibrillation with RVR Admitting Information Admitting Physician Requests: Admit Azucena Galvin MD Jul 22, 2017 19:48
--- NOTE | 2017-07-22 20:08 | RADRPT ---
EXAM DATE/TIME: 07/22/2017 19:50 [facility] COMPARISON: CHEST SINGLE AP, July 10, 2017, 20:53. INDICATIONS : Short of breath and cough. MEDICAL HISTORY : A-fib. SURGICAL HISTORY : None. ENCOUNTER: Initial ACUITY: 4 - 6 days PAIN SCORE: 0/10 LOCATION: Bilateral chest FINDINGS: The cardiac silhouette is enlarged in transverse diameter. There are findings of congestive heart johny lure with interstitial and alveolar opacity bilaterally. Small bilateral pleural effusions are identi fied. CONCLUSION: 1. Cardiomegaly and findings of congestive heart failure. Man Tobar MD on July 22, 2017 at 20:06 Board Certified Radiologist. This report was verified electronically.
[2017-07-22 20:25] LABS: BLOOD, URINE NEG (NEG); COMMENT (UR) CULT NOT INDICATED; CULTURE IF INDICATED CULT NOT INDICATED; GLUCOSE,URINE NEG (NEG); KETONE, URINE NEG (NEG); NITRITE,URINE NEG (NEG); SQUAMOUS EPITHELIAL CELL URINE 1 /hpf (0-5); URINE COLOR YELLOW (YELLW/STRAW)
[2017-07-22] MEDS ORDERED: FUROSEMIDE 40 MG/4 ML VIAL IV PUSH ONE (20:30)
[2017-07-22 20:59] LABS: AUTOMATED NEUTROPHIL # 4.8 TH/MM3 (1.8-7.7); BASOPHIL % 0.6 % (0.0-2.0); EOSINOPHIL # 0.2 TH/MM3 (0-0.4); EOSINOPHIL % 2.3 % (0.0-4.0); HEMATOCRIT 42.5 % (35.0-46.0); HEMO FLAGS DIFF FINAL; LYMPH % 14.5 % (9.0-44.0); MEAN CELL VOLUME 92.2 FL (80.0-100.0); MEAN CORPUSCULAR HEMOGLOBIN 30.9 PG (27.0-34.0); MEAN CORPUSCULAR HGB CONC 33.5 % (32.0-36.0); MONO % 16.5 % (0.0-8.0); NEUT % 66.1 % (16.0-70.0); PLATELET COUNT 213 TH/MM3 (150-450); RED BLOOD COUNT 4.61 MIL/MM3 (4.00-5.30); RED CELL DISTRIBUTION WIDTH 13.3 % (11.6-17.2); WHITE BLOOD COUNT 7.2 TH/MM3 (4.0-11.0)
[2017-07-22] MEDS ORDERED: NITROGLYCERIN 0.4 MG SL 25 TABS/BTL SL ONE (21:15)
[2017-07-22 21:18] LABS: APTT (PATIENT) 29.6 SEC (24.3-30.1); PROTHROMBIN TIME - PATIENT 11.2 SEC (9.8-11.6)
[2017-07-22 21:20] LABS: ALT (GPT) 18 U/L (10-53); ANION GAP 10 MEQ/L (5-15); AST (GOT) 17 U/L (15-37); BICARBONATE 24.1 MEQ/L (21.0-32.0); BLOOD UREA NITROGEN 15 MG/DL (7-18); CHLORIDE 100 MEQ/L (98-107); GLOMERULAR FILTRATION RATE 98 ML/MIN (>89); MAGNESIUM 1.8 MG/DL (1.5-2.5); POTASSIUM 3.9 MEQ/L (3.5-5.1); SODIUM (NA) 134 MEQ/L (136-145)
[2017-07-22 21:25] LABS: ALKALINE PHOSPHATASE 81 U/L (45-117); TOTAL BILIRUBIN ADULT 0.3 MG/DL (0.2-1.0)
[2017-07-22] MEDS ORDERED: ACETAMINOPHEN 325 MG TAB PO ONE (21:45)
[2017-07-22 21:52] LABS: CREATINE KINASE 18 U/L (26-192)
[2017-07-22] MEDS ORDERED: NITROGLYCERIN 2% OINT 1 GM PACKET TOPICAL ONE (22:00)
[2017-07-22 22:14] VITALS: BP 155/76; PULSE 96; RESP 16; O2SAT 93
[2017-07-22] MEDS ORDERED: APIXABAN 5 MG TABLET PO ONE (22:30)
[2017-07-22] MEDS ORDERED: SOTALOL HCL 80 MG TAB PO ONE (22:30)
[2017-07-22] MEDS ORDERED: POTASSIUM CHLORIDE 20 MEQ CONTROLLED RELEASE TAB PO ONE (22:30)
[2017-07-22] MEDS ORDERED: DILTIAZEM-CD 120 MG CAP ER PO ONE (22:30)
[2017-07-22] MEDS ORDERED: HYDROCORTISONE 10 MG TAB PO ONE (22:30)
[2017-07-22] MEDS ORDERED: SODIUM CHLORIDE 0.9% FLUSH 10 ML FLUSH IV FLUSH PRN (22:45)
[2017-07-22] MEDS ORDERED: NALOXONE HCL 0.4 MG/ML AMP IV PUSH PRN (22:45)
[2017-07-22 23:00] VITALS: O2SAT 95
--- NOTE | 2017-07-22 23:23 | HHI.HP ---
[facility] Gregor Curran M.D. Admission Diagnosis chf Diagnoses: Chief Complaint: sob Travel History International Travel<30 Days: No Contact w/Intl Traveler <30 Da: No Traveled to Known Affected Are: No History of Present Illness Written by ERIC Blue acting as scribe for [Pamela] on 07/22/17 at 23: 23. 77 y/o female with a history of afib, dm, hypothyroid, anxiety, depression, vertigo presented to the ED with complaints of sob at rest. She was seen at her cardiology office Dr. Garvey and he thought she was having a chf exacerbation and was told to come to the ED. She was recently discharged 8 days ago after having a thoracentesis with 400cc fluid removed, originally admitted for afib and scheduled for a IAN and ablation. She developed sob and was found to have a left pleural effusion, and the IAN/ablation was cancelled. Echo was completed on 07/14/17 and showed a pericardial effusion with moderate acrotic regurgitation , EF 60- 65%. She complains of a productive cough with white sputum for the last week She denies fevers but states she has chills. Denies any chest pain, dizziness, nausea or vomiting. Review of Systems Except as stated in HPI: all other systems reviewed are Neg Past Family Social History Past Medical History Afib Hypothyroid DM Anxiety Depression Vertigo Headaches Adrenal insufficiency Past Surgical History Back surgery x 2 Hysterectomy Cataracts Reported Medications Reported Meds & Active Scripts Active Sorine (Sotalol HCl) 80 Mg Tab 80 Mg PO BID Potassium Chloride Microencaps 20 Meq Tab 20 Meq PO BID 14 Days Dok (Docusate Sodium) 100 Mg Cap 100 Mg PO DAILY PRN 30 Days Reported Centrum Silver (Multiple Vitamins W/ Minerals) 400 Mcg-250 Mcg Chw Hydrocortisone 5 Mg Tab 5 Mg PO AC DINNER Take with food to decrease GI upset Hydrocortisone 5 Mg Tab 5 Mg PO AC LUNCH Take with food to decrease GI upset Hydrocortisone 5 Mg Tab 1.5 Mg PO DAILY NEB Take with food to decrease GI upset Synthroid (Levothyroxine Sodium) 25 Mcg Tab 25 Mcg PO DAILY Digoxin 0.125 Mg Tab 0.125 Mg PO DAILY Diltiazem (Diltiazem HCl) 120 Mg Tab 120 Mg PO BID Xanax (Alprazolam) 0.25 Mg Tab 0.25 Mg PO Q8H PRN Janumet (Sitagliptin-Metformin) 50-500 Mg Tab 2 Tab PO DAILY Eliquis (Apixaban) 5 Mg Tab 5 Mg PO BID Torsemide 5 Mg Tab 5 Mg PO DAILY Meclizine (Meclizine HCl) 12.5 Mg Tab 12.5 Mg PO DAILY PRN Allergies: Coded Allergies: ibuprofen (Verified Allergy, Unknown, 07/22/17) per her doctor was told not to take because of her kidneys penicillin G (Unverified Allergy, Unknown, hives as a child, 05/28/17) oxycodone (Unverified Adverse Reaction, Mild, Hives, 05/28/17) Active Ordered Medications Current Medications Medications (Trade) Dose Ordered Sig/Chang Route Start Time Stop Time Status Last Admin (Narcan Inj) 0.4 mg UNSCH PRN IV PUSH 07/22/17 22:45 (Lasix Inj) 40 mg BID@09,18 IV PUSH 07/23/17 09:00 (NS Flush) 2 ml BID IV FLUSH 07/23/17 09:00 (NS Flush) 2 ml UNSCH PRN IVF 07/22/17 23:00 Family History Mom: Heart disease, DM Social History Tobacco use: Quit 4 years ago, prior 1 PPD Alcohol use: Socially Illicit drug use: Denies Physical Exam Vital Signs Vital Signs Date Time Temp Pulse Resp B/P (MAP) Pulse Ox O2 Delivery O2 Flow Rate FiO2 07/22/17 22:14 96 16 155/76 (102) 93 Room Air 07/22/17 19:37 79 18 148/69 (95) 95 Room Air 07/22/17 18:34 97.7 83 17 142/65 (90) 93 Physical Exam GENERAL: This is a well-nourished, well-developed patient, who is short of breath SKIN: No rashes, ecchymoses or lesions. Cool and dry. HEAD: Atraumatic. Normocephalic. EYES: Pupils equal round and reactive. ENT: Nose without bleeding, purulent drainage or septal hematoma. Airway patent. NECK: Trachea midline. No JVD. CARDIOVASCULAR: Tachycardic rate and rhythm without murmurs, gallops, or rubs. RESPIRATORY: Diminished Breath sounds equal bilaterally. No wheezes, rales, or rhonchi. GASTROINTESTINAL: Abdomen soft, non-tender, nondistended. No hepato-splenomegaly , or palpable masses. No guarding. MUSCULOSKELETAL: Extremities without clubbing, cyanosis, or edema. Negative Homans sign bilaterally. NEUROLOGICAL: Awake and alert. Motor and sensory grossly within normal limits. Normal speech. Laboratory Laboratory Tests Test 07/22/17 20:10 07/22/17 20:35 Urine Color YELLOW Urine Turbidity CLEAR Urine pH 6.0 Urine Specific [place] 1.026 Urine Protein NEG Urine Glucose (UA) NEG Urine Ketones NEG Urine Occult Blood NEG Urine Nitrite NEG Urine Bilirubin NEG Urine Urobilinogen LESS THAN 2.0 Urine Leukocyte Esterase NEG Urine RBC 3 Urine WBC 1 Urine Squamous Epithelial Cells 1 Microscopic Urinalysis Comment CULT NOT INDICATED White Blood Count 7.2 Red Blood Count 4.61 Hemoglobin 14.3 Hematocrit 42.5 Mean Corpuscular Volume 92.2 Mean Corpuscular Hemoglobin 30.9 Mean Corpuscular Hemoglobin Concent 33.5 Red Cell Distribution Width 13.3 Platelet Count 213 Mean Platelet Volume 9.9 Neutrophils (%) (Auto) 66.1 Lymphocytes (%) (Auto) 14.5 Monocytes (%) (Auto) 16.5 Eosinophils (%) (Auto) 2.3 Basophils (%) (Auto) 0.6 Neutrophils # (Auto) 4.8 Lymphocytes # (Auto) 1.0 Monocytes # (Auto) 1.2 Eosinophils # (Auto) 0.2 Basophils # (Auto) 0.0 CBC Comment DIFF FINAL Differential Comment Prothrombin Time 11.2 Prothromb Time International Ratio 1.0 Activated Partial Thromboplast Time 29.6 Blood Urea Nitrogen 15 Creatinine 0.59 Random Glucose 141 Total Protein 7.4 Albumin 3.2 Calcium Level 10.1 Magnesium Level 1.8 Alkaline Phosphatase 81 Aspartate Amino Transf (AST/SGOT) 17 Alanine Aminotransferase (ALT/SGPT) 18 Total Bilirubin 0.3 Sodium Level 134 Potassium Level 3.9 Chloride Level 100 Carbon Dioxide Level 24.1 Anion Gap 10 Estimat Glomerular Filtration Rate 98 Total Creatine Kinase 18 Troponin I LESS THAN 0.02 B-Type Natriuretic Peptide 203 Date/Time Source Procedure Growth Status 07/22/17 20:35 Blood Peripheral Aerobic Blood Culture Pending Received 07/22/17 20:35 Blood Peripheral Anaerobic Blood Culture Pending Received Result Diagram: 07/22/17203407/22/172034 Caprini VTE Risk Assessment Caprini VTE Risk Assessment: Mod/High Risk (score >= 2) Caprini Risk Assessment Model Point Value = 1 Point Value = 2 Point Value = 3 Point Value = 5 Age 41-60 Minor surgery BMI > 25 kg/m2 Swollen legs Varicose veins or History of unexplained or recurrent spontaneous Oral contraceptives or hormone replacement Sepsis (< 1 month) Serious lung disease, including pneumonia (< 1 month) Abnormal pulmonary function Acute myocardial infarction Congestive heart failure (< 1 month) History of inflammatory bowel disease Medical patient at bed rest Age 61-74 Arthroscopic surgery Major open surgery (> 45 min) Laparoscopic surgery (> 45 min) Malignancy Confined to bed (> 72 hours) Immobilizing plaster cast Central venous access Age >= 75 History of VTE Family history of VTE Factor V Leiden Prothrombin [id number] Lupus anticoagulant Anticardiolipin antibodies Elevated serum homocysteine Heparin-induced thrombocytopenia Other congenital or acquired thrombophilia Stroke (< 1 month) Elective arthroplasty Hip, pelvis, or leg fracture Acute spinal cord injury (< 1 month) Prophylaxis Regimen Total Risk Factor Score Risk Level Prophylaxis Regimen 0-1 Low Early ambulation 2 Moderate Order ONE of the following: *Sequential Compression Device (SCD) *Heparin 5000 units SQ BID 3-4 Higher Order ONE of the following medications: *Heparin 5000 units SQ TID *Enoxaparin/Lovenox 40 mg SQ daily (WT < 150 kg, CrCl > 30 mL/min) *Enoxaparin/Lovenox 30 mg SQ daily (WT < 150 kg, CrCl > 10-29 mL/min) *Enoxaparin/Lovenox 30 mg SQ BID (WT < 150 kg, CrCl > 30 mL/min) AND/OR *Sequential Compression Device (SCD) 5 or more Highest Order ONE of the following medications: *Heparin 5000 units SQ TID (Preferred with Epidurals) *Enoxaparin/Lovenox 40 mg SQ daily (WT < 150 kg, CrCl > 30 mL/min) *Enoxaparin/Lovenox 30 mg SQ daily (WT < 150 kg, CrCl > 10-29 mL/min) *Enoxaparin/Lovenox 30 mg SQ BID (WT < 150 kg, CrCl > 30 mL/min) AND *Sequential Compression Device (SCD) Assessment and Plan Problem List: (1) Pericardial effusion ICD Code: I31.3 - Pericardial effusion (noninflammatory) (2) Atrial fibrillation ICD Code: I48.91 - Unspecified atrial fibrillation Status: Chronic (3) Diabetes ICD Code: E11.9 - Type 2 diabetes mellitus without complications Assessment and Plan 77 y/o female with a history of afib, dm, hypothyroid, anxiety, depression, vertigo presented to the ED with complaints of sob at rest. Pericardial effusion, echo on 07/14 shows pericardial effusion Chest x ray reviewed and shows enlarged silhouette, suggesting CHF, BNP 203 -Repeat echo ordered -Consult cardiothoracic surgery for recommendations -Hold diuretics for now, to prevent worsening pericardial effusion -Monitor patient for tamponade in [facility] Afib, chronic -Resume home medications Sotalol and Cardizem -Consult cardiology, Dr Garvey sent patient -Monitor telemetry Hypothyroid, chronic, Last TSH .0006, normal T4, T3, decreased dose first week in June at Dr. Chadwick office. -Recheck TSH DM, chronic -Accu checks AC/HS DVT prophylaxis: SCDs, pt received one dose of eliquis given in ER for her routine night time dose hold eliquis now pending cardiovascular eval for possible pericardiocentesis if awaiting long, then would consider starting on heparin drip for anticoagulation in the meantime This note was transcribed by jose [Yoly Lr]. I, Dr. Sigrid Santiago personally performed the history, physical exam, and medical decision making; and confirmed the accuracy of the information in the transcribed note. Authenticated by Dr. Sigrid Santiago on 07/22/17 at 23:23. Discussed Condition With Patient and Patient's Daughter ( over the phone) Yoly Lr Jul 22, 2017 23:23 Sigrid Santiago MD Jul 23, 2017 15:57
[2017-07-22 23:36] VITALS: BP 155/76; PULSE 101; RESP 18; O2SAT 94
[2017-07-23] VITALS (18 sets, daily range): BP systolic 111–138; BP diastolic 63–78; PULSE 82–116; RESP 18–20; TEMP 98–99; O2SAT 91–96
[2017-07-23] MEDS ORDERED: DEXTROSE 50% IN WATER 50 ML VIAL(D50) IV PUSH PRN ×2 (00:45→08:30)
[2017-07-23] MEDS ORDERED: GLUCAGON 1 MG/ML VIAL OTHER PRN ×2 (00:45→08:30)
[2017-07-23 03:16] LABS: CREATINE KINASE 37 U/L (26-192)
[2017-07-23] MEDS ORDERED: MECLIZINE HCL 25 MG TAB PO PRN (08:30)
[2017-07-23] MEDS ORDERED: DOCUSATE SODIUM 100 MG CAP PO PRN (08:30)
[2017-07-23] MEDS ORDERED: PILL SPLITTER OTHER PRN (08:45)
[2017-07-23] MEDS: ALPRAZolam 0.25 MG TAB PO PRN ×2 (08:58→21:26)
[2017-07-23] MEDS ORDERED: FUROSEMIDE 40 MG/4 ML VIAL IV PUSH SCH (09:00)
[2017-07-23] MEDS ORDERED: LEVOTHYROXINE SODIUM 25 MCG TAB PO SCH (09:00)
[2017-07-23] MEDS ORDERED: SODIUM CHLORIDE 0.9% FLUSH 10 ML FLUSH IV FLUSH SCH (09:00)
[2017-07-23] MEDS ORDERED: TORSEMIDE 5 MG TAB PO SCH (09:00)
[2017-07-23 09:31] LABS: BICARBONATE 25.7 MEQ/L (21.0-32.0); POTASSIUM 4.1 MEQ/L (3.5-5.1)
[2017-07-23 09:35] LABS: CREATINE KINASE 23 U/L (26-192)
[2017-07-23 09:51] LABS: AUTOMATED NEUTROPHIL # 6.5 TH/MM3 (1.8-7.7); BASOPHIL % 0.4 % (0.0-2.0); EOSINOPHIL # 0.1 TH/MM3 (0-0.4); EOSINOPHIL % 0.6 % (0.0-4.0); HEMATOCRIT 41.2 % (35.0-46.0); HEMO FLAGS DIFF FINAL; LYMPH % 9.3 % (9.0-44.0); LYMPHOCYTE # 0.8 TH/MM3 (1.0-4.8); MEAN CELL VOLUME 92.3 FL (80.0-100.0); MEAN CORPUSCULAR HGB CONC 33.6 % (32.0-36.0); MONO % 14.4 % (0.0-8.0); NEUT % 75.3 % (16.0-70.0); PLATELET COUNT 206 TH/MM3 (150-450); RED BLOOD COUNT 4.47 MIL/MM3 (4.00-5.30); RED CELL DISTRIBUTION WIDTH 13.3 % (11.6-17.2); WHITE BLOOD COUNT 8.7 TH/MM3 (4.0-11.0)
[2017-07-23] MEDS: POTASSIUM CHLORIDE 20 MEQ CONTROLLED RELEASE TAB PO SCH ×2 (10:08→21:23)
[2017-07-23] MEDS: DIGOXIN 0.125 MG TAB PO SCH (10:08)
[2017-07-23] MEDS: SODIUM CHLORIDE 0.9% FLUSH 10 ML FLUSH IV FLUSH SCH ×2 (10:09→21:00)
[2017-07-23] MEDS: SOTALOL HCL 80 MG TAB PO SCH ×2 (10:09→21:24)
--- NOTE | 2017-07-23 10:09 | EKG ---
Date Performed: 07/22/2017 Time Performed: 20:09:05 PTAGE: 77 years EKG: ATRIAL FIBRILLATION ST DEVIATION AND MODERATE T-WAVE ABNORMALITY, CONSIDER LATERAL ISCHEMIA ABNORMAL ECG PREVIOUS TRACING : 07/11/2017 09.05 Compared to prior tracing no significant change DOCTOR: Man Kauffman Interpretating Date/Time 07/23/2017 10:06:42
--- NOTE | 2017-07-23 10:09 | EKG ---
Date Performed: 07/23/2017 Time Performed: 02:47:00 PTAGE: 77 years EKG: ATRIAL FIBRILLATION WITH RAPID VENTRICULAR RESPONSE ST DEVIATION AND MODERATE T-WAVE ABNORM ALITY, CONSIDER LATERAL ISCHEMIA ST DEVIATION AND MODERATE T-WAVE ABNORMALITY, CONSIDER INFERIOR ISCH EMIA ABNORMAL ECG PREVIOUS TRACING : 07/22/2017 20.09 Compared to prior tracing no significant change DOCTOR: Man Kauffman Interpretating Date/Time 07/23/2017 10:06:33
[2017-07-23] MEDS: ONDANSETRON HCL 4 MG/2 ML VIAL IV PUSH PRN (11:36)
[2017-07-23] MEDS: ACETAMINOPHEN 500 MG CPLT PO PRN ×2 (11:39→15:36)
--- NOTE | 2017-07-23 13:31 | HHI.PR ---
Subjective Remarks follow up for shortness of breathing Patient continues to feel short of breath. She does admit to having upper respiratory symptoms. She cannot tell me how long. Patient stated that she has cough with sputum that described as clear with some mucous. She does that she has chest congestion. Denies any nasal congestion or postnasal dripping. She has not taken any medication for this. Patient does not have any fever. Her daughters at the bedside during the interview. Objective Vitals Vital Signs Date Time Temp Pulse Resp B/P (MAP) Pulse Ox O2 Delivery O2 Flow Rate FiO2 07/23/17 11:31 98.2 92 20 125/76 (92) 94 07/23/17 10:00 94 07/23/17 09:47 98.0 103 20 138/78 (98) 07/23/17 09:38 07/23/17 06:26 92 18 123/74 (90) 96 Room Air 07/22/17 23:36 101 18 155/76 (102) 94 Room Air 07/22/17 23:00 95 07/22/17 22:14 96 16 155/76 (102) 93 Room Air 07/22/17 19:37 79 18 148/69 (95) 95 Room Air 07/22/17 18:34 97.7 83 17 142/65 (90) 93 I/O 07/22/17 07/22/17 07/22/17 07/23/17 07/23/17 07/23/17 07:00 15:00 23:00 07:00 15:00 23:00 Output Total 1400 ml Balance -1400 ml Output Urine Total 1400 ml # Voids 3 Result Diagram: 07/23/1735 07/23/17 0835 Objective Remarks GENERAL: in NAD SKIN: Warm and dry. HEAD: Normocephalic. EYES: No scleral icterus. No injection or drainage. NECK: Supple, trachea midline. No JVD or lymphadenopathy. CARDIOVASCULAR: Irregular rate and irregular rhythm without murmurs, gallops, or rubs. neg edema RESPIRATORY: Breath sounds equal bilaterally. No accessory muscle use. GASTROINTESTINAL: Abdomen soft, non-tender, nondistended. Medications and IVs Current Medications Sodium Chloride (NS Flush) 2 ml UNSCH PRN IVF FLUSH AFTER USING IV ACCESS Last administered on 07/22/17t 20:47; Start 07/22/17 at 19:45; Stop 07/22/17 at 22:46 ; Status DC Furosemide (Lasix Inj) 40 mg ONCE ONCE IV PUSH Last administered on 07/22/17 20:47; Start 07/22/17 at 20:30; Stop 07/22/17 at 20:31; Status DC Nitroglycerin (Nitrostat Sl) 0.4 mg ONCE ONCE SL Last administered on 21:28; Start 07/22/17 at 21:15; Stop 07/22/17 at 21:16; Status DC Acetaminophen (Tylenol) 650 mg ONCE ONCE PO Last administered on 07/22/17 21: 49; Start 07/22/17 at 21:45; Stop 07/22/17 at 21:46; Status DC Nitroglycerin (Nitroglycerin 2% Oint) 0.5 inch ONCE ONCE TOPICAL Last administered on 07/22/17 22:14; Start 07/22/17 at 22:00; Stop 07/22/17 at 22:01 ; Status DC Sotalol HCl (Betapace) 80 mg ONCE ONCE PO Last administered on 07/23/17 01: 44; Start 07/22/17 at 22:30; Stop 07/22/17 at 22:41; Status DC Diltiazem HCl (Cardizem Cd) 120 mg ONCE ONCE PO Last administered on 01:44; Start 07/22/17 at 22:30; Stop 07/22/17 at 22:41; Status DC Apixaban (Eliquis) 5 mg ONCE ONCE PO Last administered on 07/23/17 01:44; Start 07/22/17 at 22:30; Stop 07/22/17 at 22:41; Status DC Hydrocortisone (Cortef) 5 mg ONCE ONCE PO Last administered on 07/23/17 01: 44; Start 07/22/17 at 22:30; Stop 07/22/17 at 22:41; Status DC Potassium Chloride (KCl) 20 meq ONCE ONCE PO Last administered on 07/23/17 01:45; Start 07/22/17 at 22:30; Stop 07/22/17 at 22:41; Status DC Sodium Chloride (NS Flush) 2 ml UNSCH PRN IV FLUSH FLUSH AFTER USING IV ACCESS ; Start 07/22/17 at 22:45; Stop 07/22/17 at 22:49; Status DC Sodium Chloride (NS Flush) 2 ml BID IV FLUSH ; Start 07/23/17 at 09:00; Stop 07/23/17 at 09:00; Status DC Naloxone HCl (Narcan Inj) 0.4 mg UNSCH PRN IV PUSH SEE LABEL COMMENTS; Start 07/22/17 at 22:45 Furosemide (Lasix Inj) 40 mg BID@,18 IV PUSH ; Start 07/23/17 at 09:00; Stop 07/23/17 at 09:00; Status DC Sodium Chloride (NS Flush) 2 ml BID IV FLUSH Last administered on 07/23/17 10 :09; Start 07/23/17 at 09:00 Sodium Chloride (NS Flush) 2 ml UNSCH PRN IVF FLUSH AFTER USING IV ACCESS; Start 07/22/17 at 23:00 Dextrose (D50w (Vial) Inj) 50 ml UNSCH PRN IV PUSH HYPOGLYCEMIA-SEE COMMENTS; Start 07/23/17 at 00:45; Stop 07/23/17 at 08:38; Status DC Glucagon (Glucagon Inj) 1 mg UNSCH PRN OTHER HYPOGLYCEMIA-SEE COMMENTS; Start 07/23/17 at 00:45; Stop 07/23/17 at 08:39; Status DC Alprazolam (Xanax) 0.25 mg Q8H PRN PO ANXIETY Last administered on 07/23/17 08:58; Start 07/23/17 at 08:30 Digoxin (Lanoxin) 0.125 mg DAILY PO Last administered on 07/23/17 10:08; Start 07/23/17 at 09:00 Docusate Sodium (Colace) 100 mg DAILY PRN PO Constipation; Start 07/23/17 at 08:30 Hydrocortisone (Cortef) 7.5 mg DAILY@0800 PO ; Start 07/24/17 at 08:00 Hydrocortisone (Cortef) 5 mg AC DINNER PO ; Start 07/23/17 at 16:00 Levothyroxine Sodium (Synthroid) 25 mcg DAILY@0600 PO Last administered on 10:12; Start 07/23/17 at 09:00; Stop 07/23/17 at 10:34; Status DC Meclizine HCl (Antivert) 12.5 mg DAILY PRN PO VERTIGO Last administered on 08:58; Start 07/23/17 at 08:30 Potassium Chloride (KCl) 20 meq BID PO Last administered on 07/23/17 10:08; Start 07/23/17 at 09:00 Sotalol HCl (Betapace) 80 mg BID PO Last administered on 07/23/17 10:09; Start 07/23/17 at 09:00 Torsemide (Demadex) 5 mg DAILY PO Last administered on 07/23/17 10:16; Start 07/23/17 at 09:00 Diltiazem HCl (Cardizem Cd) 120 mg DAILY PO ; Start 07/24/17 at 09:00 Dextrose (D50w (Vial) Inj) 50 ml UNSCH PRN IV PUSH HYPOGLYCEMIA-SEE COMMENTS; Start 07/23/17 at 08:30 Glucagon (Glucagon Inj) 1 mg UNSCH PRN OTHER HYPOGLYCEMIA-SEE COMMENTS; Start 07/23/17 at 08:30 Miscellaneous (Pill Splitter) 1 ea UNSCH PRN OTHER SEE LABEL COMMENTS; Start 07/23/17 at 08:45 Ondansetron HCl (Zofran Inj) 4 mg Q8HR PRN IV PUSH nausea/vomiting Last administered on 07/23/17 11:36; Start 07/23/17 at 10:45 Acetaminophen (Tylenol) 500 mg Q4H PRN PO pain 1-10 Last administered on 11:39; Start 07/23/17 at 10:45 A/P Problem List: (1) Pericardial effusion ICD Code: I31.3 - Pericardial effusion (noninflammatory) (2) Atrial fibrillation ICD Code: I48.91 - Unspecified atrial fibrillation Status: Chronic (3) Diabetes ICD Code: E11.9 - Type 2 diabetes mellitus without complications Assessment and Plan 77 y/o female with a history of afib, dm, hypothyroid, anxiety, depression, vertigo presented to the ED with complaints of sob at rest. Dyspnea -Unsure etiology. Maybe due to worsening pericardial effusion versus CHF versus URI. -Chest x-ray suggests CHF exacerbation. BNP 203. Diuretic was held secondary to pericardial effusion. -Pending echo. -Rejogger and cardiovascular surgeon consulted. Pericardial effusion, echo on 07/14 shows pericardial effusion -See treatment as above. Afib, chronic -Continue home medications Sotalol and Cardizem -Her [place] se[place] was consulted. Hypothyroid, chronic -TSH is 0.0005 continues to be suppressed. Patient stated that she takes Synthroid every other day. Recommending discontinuing medication, but patient total follow with her gearman. Adrenal insufficiency -Home medication already resumed. Follow-up with gearman. DM, chronic -Hold oral hypoglycemic medication. Will place patient on insulin sliding scale. DVT prophylaxis: SCDs, Francia Soni MD Jul 23, 2017 13:31
[2017-07-23] MEDS: HYDROCORTISONE 10 MG TAB PO SCH (15:35)
--- NOTE | 2017-07-23 16:13 | PD.CONS ---
HPI Service Cardiology consult Consult Requested By Dr Santiago Reason for Consult Patient known to us, CHF, pericardial effusion, SOB, afib Primary Care Physician Gregor Curran M.D. History of Present Illness The patient is a 77 year old female known to our practice with a cardiac history of pericardial effusion, atrial fibrillation, mitral valve disease, aortic regurgitation, hypotension and diabetes. Other notable history is adrenal insufficiency on hydrocortisone and hypothyroidism on levothyroxine. She was recently hospitalized for symptomatic atrial fibrillation with Sotalol loading with plan for IAN/cardioversion, however the procedure was canceled due to missed Eliquis and increased risk for stroke. On the last admission, she developed increased SOB and was noted to have an effusion. She had a thoracentesis without fluid studies. She was discharged with torsemide 5 mg daily. She was reevaluated yesterday in the office and noted to have SOB at rest, appeared pallor and fluid overloaded and was very fatigued. The patient was sent to the ER. Today, on evaluation, she continues to have SOB that is slightly better. Continues to have orthopnea, productive cough with white-yellow sputum and SOB with minimal exertion. She remains in atrial fibrillation. BP stable. Review of Systems Consitutional: COMPLAINS OF: Fatigue, DENIES: Fever, Chills, Weight gain, Weight loss Eyes: DENIES: Amaurosis Fugax, Change in vision HEENT: DENIES: Lightheadedness, Change in hearing Respiratory: COMPLAINS OF: Cough, Shortness of breath, Sputum production, DENIES: See HPI, Snoring, Wheezing Cardiovascular: COMPLAINS OF: Tachycardia, DENIES: See HPI, Chest pain, Palpitations, Syncope Gastrointestinal: DENIES: Nausea, Vomiting, Change in bowel habits, Reflux, Bloody stools, Melena Genitourinary: DENIES: Urinary incontinence, Difficulty voiding Integumentary: DENIES: Rash Neurologic: DENIES: Tingling or numbness, Memory problems, Poor Balance, Stroke symptoms Musculoskeletal: DENIES: Joint pain, Muscle pain, Limited range of motion, Back pain Psychiatric: DENIES: Depression, Sleep disturbances Hematologic: DENIES: Bruising tendencies, Bleeding tendencies Endocrine: DENIES: Weight gain, Weight loss, Thyroid disease Past Family Social History Allergies: Coded Allergies: ibuprofen (Verified Allergy, Unknown, 07/22/17) per her doctor was told not to take because of her kidneys penicillin G (Unverified Allergy, Unknown, hives as a child, 05/28/17) oxycodone (Unverified Adverse Reaction, Mild, Hives, 05/28/17) Past Medical History See HPI Past Surgical History Back surgery x 2 Hysterectomy Cataracts Thoracentesis 07/14/2017 Reported Medications Reported Meds & Active Scripts Active Sorine (Sotalol HCl) 80 Mg Tab 80 Mg PO BID Potassium Chloride Microencaps 20 Meq Tab 20 Meq PO BID 14 Days Dok (Docusate Sodium) 100 Mg Cap 100 Mg PO DAILY PRN 30 Days Reported Centrum Silver (Multiple Vitamins W/ Minerals) 400 Mcg-250 Mcg Chw Hydrocortisone 5 Mg Tab 5 Mg PO AC DINNER Take with food to decrease GI upset Hydrocortisone 5 Mg Tab 5 Mg PO AC LUNCH Take with food to decrease GI upset Hydrocortisone 5 Mg Tab 1.5 Mg PO DAILY NEB Take with food to decrease GI upset Synthroid (Levothyroxine Sodium) 25 Mcg Tab 25 Mcg PO DAILY Digoxin 0.125 Mg Tab 0.125 Mg PO DAILY Diltiazem (Diltiazem HCl) 120 Mg Tab 120 Mg PO BID Xanax (Alprazolam) 0.25 Mg Tab 0.25 Mg PO Q8H PRN Janumet (Sitagliptin-Metformin) 50-500 Mg Tab 2 Tab PO DAILY Eliquis (Apixaban) 5 Mg Tab 5 Mg PO BID Torsemide 5 Mg Tab 5 Mg PO DAILY Meclizine (Meclizine HCl) 12.5 Mg Tab 12.5 Mg PO DAILY PRN Active Ordered Medications Current Medications Medications (Trade) Dose Ordered Sig/Chang Route Start Time Stop Time Status Last Admin (Narcan Inj) 0.4 mg UNSCH PRN IV PUSH 07/22/17 22:45 (NS Flush) 2 ml BID IV FLUSH 07/23/17 09:00 07/23/17 10:09 (NS Flush) 2 ml UNSCH PRN IVF 07/22/17 23:00 (Xanax) 0.25 mg Q8H PRN PO 07/23/17 08:30 07/23/17 08:58 (Lanoxin) 0.125 mg DAILY PO 07/23/17 09:00 07/23/17 10:08 (Colace) 100 mg DAILY PRN PO 07/23/17 08:30 (Cortef) 7.5 mg DAILY@0800 PO 07/24/17 08:00 (Cortef) 5 mg AC DINNER PO 07/23/17 16:00 07/23/17 15:35 (Antivert) 12.5 mg DAILY PRN PO 07/23/17 08:30 07/23/17 08:58 (KCl) 20 meq BID PO 07/23/17 09:00 07/23/17 10:08 (Betapace) 80 mg BID PO 07/23/17 09:00 07/23/17 10:09 (Demadex) 5 mg DAILY PO 07/23/17 09:00 07/23/17 10:16 (Cardizem Cd) 120 mg DAILY PO 07/24/17 09:00 (D50w (Vial) Inj) 50 ml UNSCH PRN IV PUSH 07/23/17 08:30 (Glucagon Inj) 1 mg UNSCH PRN OTHER 07/23/17 08:30 (Pill Splitter) 1 ea UNSCH PRN OTHER 07/23/17 08:45 (Zofran Inj) 4 mg Q8HR PRN IV PUSH 07/23/17 10:45 07/23/17 11:36 (Tylenol) 500 mg Q4H PRN PO 07/23/17 10:45 07/23/17 15:36 (Claritin-D 12 Hr) 1 tab Q12HR PO 07/23/17 21:00 (NovoLOG SUPPLEMENTAL SCALE) 1 ACHS SLIDING SCALE SQ 07/23/17 17:00 Family History non contributory Social History Lives alone, daughter lives in [place] Physical Exam Vital Signs Vital Signs Date Time Temp Pulse Resp B/P (MAP) Pulse Ox O2 Delivery O2 Flow Rate FiO2 07/23/17 15:15 98.1 89 20 111/63 (79) 93 07/23/17 15:00 89 07/23/17 14:00 82 07/23/17 13:00 84 07/23/17 12:00 100 07/23/17 11:31 98.2 92 20 125/76 (92) 94 07/23/17 11:00 116 07/23/17 10:00 94 07/23/17 09:47 98.0 103 20 138/78 (98) 07/23/17 09:38 07/23/17 06:26 92 18 123/74 (90) 96 Room Air 07/22/17 23:36 101 18 155/76 (102) 94 Room Air 07/22/17 23:00 95 07/22/17 22:14 96 16 155/76 (102) 93 Room Air 07/22/17 19:37 79 18 148/69 (95) 95 Room Air 07/22/17 18:34 97.7 83 17 142/65 (90) 93 Physical Exam GENERAL: Elderly female in mild distress in CIC, daughter bedside SKIN: Warm and dry. HEAD: Atraumatic. Normocephalic. EYES: Pupils equal and round. No scleral icterus. No injection or drainage. ENT: No nasal bleeding or discharge. NECK: Trachea midline. CARDIOVASCULAR: Irreg irreg RESPIRATORY: nasal cannula, accessory muscle use, diminished bases GASTROINTESTINAL: Abdomen soft, non-tender, nondistended.. MUSCULOSKELETAL: Extremities without clubbing, cyanosis NEUROLOGICAL: Awake and alert. No obvious cranial nerve deficits. Motor grossly within normal limits. Five out of 5 muscle strength in the arms and legs. Normal speech. PSYCHIATRIC: Appropriate mood and affect; insight and judgment normal. Laboratory Laboratory Tests Test 07/22/17 20:10 07/22/17 20:35 07/23/17 02:48 07/23/17 08:35 Urine Color YELLOW Urine Turbidity CLEAR Urine pH 6.0 Urine Specific [place] 1.026 Urine Protein NEG Urine Glucose (UA) NEG Urine Ketones NEG Urine Occult Blood NEG Urine Nitrite NEG Urine Bilirubin NEG Urine Urobilinogen LESS THAN 2.0 Urine Leukocyte Esterase NEG Urine RBC 3 Urine WBC 1 Urine Squamous Epithelial Cells 1 Microscopic Urinalysis Comment CULT NOT INDICATED White Blood Count 7.2 Red Blood Count 4.61 Hemoglobin 14.3 Hematocrit 42.5 Mean Corpuscular Volume 92.2 Mean Corpuscular Hemoglobin 30.9 Mean Corpuscular Hemoglobin Concent 33.5 Red Cell Distribution Width 13.3 Platelet Count 213 Mean Platelet Volume 9.9 Neutrophils (%) (Auto) 66.1 Lymphocytes (%) (Auto) 14.5 Monocytes (%) (Auto) 16.5 Eosinophils (%) (Auto) 2.3 Basophils (%) (Auto) 0.6 Neutrophils # (Auto) 4.8 Lymphocytes # (Auto) 1.0 Monocytes # (Auto) 1.2 Eosinophils # (Auto) 0.2 Basophils # (Auto) 0.0 CBC Comment DIFF FINAL Differential Comment Prothrombin Time 11.2 Prothromb Time International Ratio 1.0 Activated Partial Thromboplast Time 29.6 Blood Urea Nitrogen 15 15 Creatinine 0.59 0.59 Random Glucose 141 211 Total Protein 7.4 Albumin 3.2 Calcium Level 10.1 9.6 Magnesium Level 1.8 Alkaline Phosphatase 81 Aspartate Amino Transf (AST/SGOT) 17 Alanine Aminotransferase (ALT/SGPT) 18 Total Bilirubin 0.3 Sodium Level 134 135 Potassium Level 3.9 4.1 Chloride Level 100 100 Carbon Dioxide Level 24.1 25.7 Anion Gap 10 9 Estimat Glomerular Filtration Rate 98 98 Total Creatine Kinase 18 37 23 Troponin I LESS THAN 0.02 LESS THAN 0.02 LESS THAN 0.02 B-Type Natriuretic Peptide 203 Thyroid Stimulating Hormone 3rd Gen LESS THAN 0.005 Test 07/23/17 09:35 White Blood Count 8.7 Red Blood Count 4.47 Hemoglobin 13.9 Hematocrit 41.2 Mean Corpuscular Volume 92.3 Mean Corpuscular Hemoglobin 31.0 Mean Corpuscular Hemoglobin Concent 33.6 Red Cell Distribution Width 13.3 Platelet Count 206 Mean Platelet Volume 9.6 Neutrophils (%) (Auto) 75.3 Lymphocytes (%) (Auto) 9.3 Monocytes (%) (Auto) 14.4 Eosinophils (%) (Auto) 0.6 Basophils (%) (Auto) 0.4 Neutrophils # (Auto) 6.5 Lymphocytes # (Auto) 0.8 Monocytes # (Auto) 1.3 Eosinophils # (Auto) 0.1 Basophils # (Auto) 0.0 CBC Comment DIFF FINAL Differential Comment Date/Time Source Procedure Growth Status 07/22/17 20:35 Blood Peripheral Aerobic Blood Culture - Preliminary NO GROWTH IN 1 DAY Resulted 07/22/17 20:35 Blood Peripheral Anaerobic Blood Culture - Preliminary NO GROWTH IN 1 DAY Resulted Result Diagram: 07/23/1735 07/23/1735 Imaging Last 72 hours Impressions Chest X-Ray 07/22/171937 Signed Impressions: Service Date/Time: Saturday, July 22, 2017 19:50 - CONCLUSION: 1. Cardiomegaly and findings of congestive heart failure. Man Tobar MD Assessment and Plan Assessment and Plan Acute on chronic diastolic CHF exacerbation Bilateral pleural effusions. Recent thoracentesis without fluid studies. Pericardial effusion Aortic regurgitation and questionable mitral stenosis Atrial fibrillation on Eliquis prior to admission. Adrenal insufficiency Iatrogenic hyperthyroidism PLAN Repeat cardiac echo with close evaluation of mitral valve Consult Dr Rosario Increase diuresis- change to diuresis IV Monitor vitals carefully for indication of worsening effusion Resume Eliquis 5 mg BID The patient was seen and evaluated by Dr Garvey who completed face to face encounter, physical exam and participated in evaluation and management Case discussed with Dr Rosario and Shana Lopez Jul 23, 2017 16:13
--- NOTE | 2017-07-23 16:26 | EKG ---
Date Performed: 07/23/2017 Time Performed: 08:57:44 PTAGE: 77 years EKG: ATRIAL FIBRILLATION NONSPECIFIC ST & T-WAVE ABNORMALITY ABNORMAL ECG PREVIOUS TRACING : 07/23/2017 02.47 Compared to prior tracing no significant change DOCTOR: Edmund Hood Interpretating Date/Time 07/23/2017 16:25:38
--- NOTE | 2017-07-23 17:03 | ECHRPT ---
Indication: mitral stenosis CONCLUSIONS The left ventricular systolic function is normal with an estimated ejection fraction in the range of 60-65%. Mild mitral valve stenosis. (MVA 2.39, mean grad 4 at 82bpm). Mild aortic valve regurgitation. There is a moderate pericardial effusion present. No hemodynamically significant echocardiographic features were observed (no pre-tamponade physiology). BP: 123 / 74 HR: 92 Rhythm: Atrial fibrillation Technical Quality:Fair FINDINGS LEFT VENTRICLE The left ventricular systolic function is normal with an estimated ejection fraction in the range of 60-65%. Normal left ventricular size. Wall thickness is measured at the upper limits of normal. No regional wall motion abnormalities are present. RIGHT VENTRICLE Normal right ventricular size and systolic function. LEFT ATRIUM The left atrial size is mildly dilated. RIGHT ATRIUM The right atrial size is mildly dilated. ATRIAL SEPTUM Normal atrial septal thickness without atrial level shunting by limited color doppler interrogation. AORTA The aortic root and proximal ascending aorta are normal in size on limited imaging. MITRAL VALVE Moderate mitral annular calcification. Trace mitral valve regurgitation. Mild mitral valve stenosis. (MVA 2.39, mean grad 4 at 82bpm) AORTIC VALVE Mild aortic valve regurgitation. Diffuse calcification of the aortic valve. No aortic valve stenosis. TRICUSPID VALVE Structurally normal tricuspid valve. There is trace tricuspid valve regurgitation. The estimated pulmonary arterial pressure is 32 mmHg. PULMONARY VALVE The pulmonary valve is not well visualized. Trivial pulmonary valve regurgitation. VESSELS The inferior vena cava is dilated. There is less than 50% respiratory change in dimension of the inferior vena cava (abnormal). PERICARDIUM There is a moderate pericardial effusion present. No hemodynamically significant echocardiographic features were observed (no pre-tamponade physiology). Edmund Hood DO (Electronically Signed) Final Date:23 July 2017 17:01
[2017-07-23] MEDS: FUROSEMIDE 20 MG/2 ML VIAL IV PUSH SCH (18:04)
[2017-07-23] MEDS: INSULIN ASPART SUPPLEMENTAL SCALE SQ SCH ×2 (18:22→21:32)
--- NOTE | 2017-07-23 19:55 | MB ---
cc: RITA GARVEY M.D., R. STEVEN M.D. DATE OF CONSULTATION 07/23/2017 HISTORY OF THE PRESENT ILLNESS Ms. Fried is a 77-year-old white female who was recently in the hospital in June with shortness of breath and congestive heart failure with atrial fibrillation, apparently new onset. She also had bilateral pleural effusions at that time and the left pleural effusion was drained 400 mL on 07/14. Unfortunately no fluid was submitted for analysis. The patient went home, initially felt better but gradually declined again with increasing shortness of breath and became quite weak. She presented to Dr. Garvey's office on 07/22 and was admitted for these symptoms. She had a chest x-ray on presentation with cardiomegaly and interstitial changes at the bases, possibly with small pleural effusions not significant based on plain film. She had a cough with some congestion but no purulent sputum and her white count is normal at 7200. She has been afebrile. She has had no purulent sputum or hemoptysis and she really does not have increased edema in her legs. Her EKG revealed atrial fibrillation with rapid ventricular response. Her BNP was only mildly elevated at 203. An echocardiogram was performed which revealed normal left ventricular ejection fraction but a moderate pericardial effusion not hemodynamically compromising. She had a mild elevation in pulmonary artery pressure and moderate mitral annular calcification with mild stenosis and regurgitation. The aortic valve revealed mild aortic regurgitation. At the time of this interview the patient is awake, alert, comfortable at rest. Room air saturations are 96%. She has a mild nonproductive cough. PAST MEDICAL HISTORY 1. A. Fib. 2. Hypothyroidism and adrenal insufficiency both of these were diagnosed in October [address] Chadwick. 3. Diabetes. 4. She has had two prior lumbosacral surgeries for degenerative arthritis. 5. Hysterectomy. 6. Bilateral cataracts removed. ALLERGIES IBUPROFEN, OXYCODONE, PENICILLIN-G. MEDICATIONS Are reviewed in the EMR. She is on Eliquis. She has received diuretics intravenously. SOCIAL HISTORY She is , lost her last year. They moved here from [place] in 1969. 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 She is still independent. Lives alone, manages her own affairs. She did smoke a pack of cigarettes a day for about 40 years, quit 5 years ago and has never had any previous diagnosed pulmonary disease. Drinks alcohol socially apparently not to excess. REVIEW OF SYSTEMS Other than that noted above she has had no chronic reflux or abdominal complaints. No history of pneumonia. No history of thromboembolic disease. No chronic edema in her legs. No recent change in bowel habits. No fever, night sweats. No prior history of liver or renal disease. PHYSICAL EXAMINATION GENERAL: Elderly white female in no distress. VITAL SIGNS: Afebrile, pulse is irregular 100, blood pressure 140/80 and respirations are 16. Saturation 96%. HEENT: Sclerae anicteric. The neck veins are not distended. Mucous membranes were dry. CHEST: Clear. No basilar rales. No wheezes or congestion. CARDIOVASCULAR: Irregular heart rhythm. Soft systolic murmur. No audible S3. ABDOMEN: Soft. EXTREMITIES: She has no peripheral edema or calf tenderness. No cyanosis. Blood cultures have been negative. LABORATORY DATA BUN and creatinine 15 and 0.59. Liver functions are normal. DISCUSSION Ms. Fried presents last month with an effusion, rapid atrial fibrillation, probably congestive heart failure with associated effusion. She went home but is back now with recurring dyspnea, nonproductive cough, a pericardial effusion, mitral and aortic valvular disease and probably small effusions based on the regular chest film. She could certainly have underlying COPD with her smoking history. I cannot exclude the possibility that there is malignancy so I have suggested proceeding with a CT of her thorax, spirometry at the bedside to assess her pulmonary function and Dr. Garvey is involved in reviewing her current cardiac status including a new pericardial effusion. I also ordered a sed rate and a CRP which you would expect to be elevated if she had significant infection or malignancy. I suspect the pleural effusions are probably related to her cardiac status, but as I explained to her today we will do some initial diagnostic studies. Further diagnostic and/or therapeutic intervention will depend on the results of these and her ongoing clinical course. I also explained to she and Dr. Garvey that I will be away the remainder of this week but I am being covered by my pulmonary associates if something on the CT scan warrants further investigation while she is in the hospital. I will ask them to see her in my absence and I can follow up upon my return. R. MD MIKALA Hernandez/KK /6:00 PM /7:29 PM
[2017-07-23] MEDS ORDERED: VANCOMYCIN INJ 1,000 MG in SODIUM CHLOR 0.9% 250 ML INJ 250 ML IV ONE (21:00)
[2017-07-23] MEDS: LORATADINE/PSEUDOEPHEDRINE 5 MG/120 MG TAB PO SCH (21:00)
[2017-07-23] MEDS: APIXABAN 5 MG TABLET PO SCH (21:23)
--- NOTE | 2017-07-23 21:30 | RADRPT ---
EXAM DATE/TIME: 07/23/2017 21:09 [facility] COMPARISON: CHEST SINGLE AP, July 22, 2017, 19:50. INDICATIONS : Rule out pneumonia. MEDICAL HISTORY : None. SURGICAL HISTORY : None. ENCOUNTER: Initial ACUITY: 1 day PAIN SCORE: 0/10 LOCATION: Bilateral chest FINDINGS: A single view of the chest demonstrates the lungs to be symmetrically aerated without evidence of mas s, infiltrate or effusion. There is stable pleural thickening in the left costophrenic angle. The he art size is enlarged but stable.. Osseous structures are intact. CONCLUSION: No acute pulmonary infiltrates. Stable cardiomegaly. Mehdi Hernández MD on July 23, 2017 at 21:28 Board Certified Radiologist. This report was verified electronically.
[2017-07-24] VITALS (29 sets, daily range): BP systolic 104–130; BP diastolic 50–79; PULSE 64–116; RESP 14–20; TEMP 97.6–98.7; O2SAT 91–95
[2017-07-24] MEDS: ACETAMINOPHEN 500 MG CPLT PO PRN ×3 (03:14→21:04)
[2017-07-24] MEDS: ALPRAZolam 0.25 MG TAB PO PRN ×2 (08:35→21:04)
[2017-07-24] MEDS: HYDROCORTISONE 10 MG TAB PO SCH ×2 (08:35→16:00)
[2017-07-24] MEDS: DILTIAZEM-CD 120 MG CAP ER PO SCH (08:36)
[2017-07-24] MEDS: APIXABAN 5 MG TABLET PO SCH ×2 (08:36→21:05)
[2017-07-24] MEDS: POTASSIUM CHLORIDE 20 MEQ CONTROLLED RELEASE TAB PO SCH ×2 (08:36→21:05)
[2017-07-24] MEDS: SOTALOL HCL 80 MG TAB PO SCH ×2 (08:37→21:04)
[2017-07-24] MEDS: DIGOXIN 0.125 MG TAB PO SCH (08:37)
[2017-07-24] MEDS: LORATADINE/PSEUDOEPHEDRINE 5 MG/120 MG TAB PO SCH (08:37)
--- NOTE | 2017-07-24 08:37 | MB ---
cc: DEMAR CURRAN M.D., SOHIT K. MD DATE OF : 1940 DATE OF CONSULTATION: 07/23/2017 HISTORY OF PRESENT ILLNESS: A 77-year-old female, patient of Dr. Demar Curran, Dr. Garvey with recent history of planning to undergo IAN ablation. After being a direct admit from Dr. Garvey's office, was found to be in A-fib with RVR. The plan was to load her with Sotalol and then undergo IAN and cardioversion. Apparently there was some question about her not receiving her Eliquis and consequently the cardioversion was aborted and she was maintained on rate control with sotalol. The patient became very short of breath. The daughter said she had like 3 liters of IV fluid, went into some pulmonary edema, volume overload. She also was found to have a left pleural effusion. They did a thoracentesis on a which drained about 400 cc of cloudy fluid. No fluid was sent for studies. Her hypoxia resolved. They did an echocardiogram on the which showed EF of 60-65%. Moderate pericardial effusion present. The fusion was partially loculated with fibrinous strands. She also had been having some types of headaches at the time. She was then sent home to follow with Dr. Garvey and then on this admission she had been complaining of vertigo, also some shortness of breath at rest, productive cough with some whitish sputum. Denied having any recent fevers or chills. No chest pain. We were consulted because of the echo that she had on 07/14 with a moderate pericardial effusion. A repeat was done at Dr. Garvey's office yesterday and then repeat is pending here at our facility. PAST MEDICAL HISTORY: 1. Atrial fibrillation. 2. Hypothyroidism. 3. Diabetes mellitus. 4. Anxiety and depression 5. Vertigo. 6. Headaches. 7. Adrenal insufficiency. PAST SURGICAL HISTORY: 1. Back surgery x2. 2. Hysterectomy. 3. Cataract surgery. ALLERGIES PENICILLIN. OXYCODONE IBUPROFEN HOME MEDICATIONS: 1. Sotalol 80 p.o. b.i.d. 2. Hydrocortisone 5, p.o. ac dinner, also 5 before lunch. 3. Synthroid 25 mics daily. 4. Digoxin 0.125 daily. 5. Diltiazem 120 b.i.d. 6. Xanax p.r.n. 7. Janumet 50/500, two tabs daily. 8. Eliquis 5 p.o. b.i.d., last dose was on the . 9. Demodex 5 milligrams p.o. daily. 10. Meclizine 12.5 p.o. daily p.r.n. REVIEW OF SYSTEMS: As above in the HPI, otherwise 12 systems unremarkable. PHYSICAL EXAMINATION: VITAL SIGNS: Blood pressure 110/60, heart rate of 80, afebrile. GENERAL: The patient is awake, alert, no acute distress. HEAD: Normocephalic, atraumatic. Pupils equal and reactive. Oral mucosa pink, moist. NECK: Supple. No JVD. HEART: Heart sounds S1-S2, irregular rate and rhythm. Audible rubs, murmurs, gallops. LUNGS: Diminished in the bases, more on the left versus the right. ABDOMEN: Soft, nontender. No masses or organomegaly. EXTREMITIES: No clubbing, cyanosis or edema. LABORATORY DATA: Lab work shows hemoglobin 13, hematocrit 41, white cell count 8.7, platelet count 206, sodium 135, potassium 4.1, BUN 15, creatinine 0.6, troponin negative x3. TSH is less than 0.005, INR 1.0. Urinalysis is unremarkable. Micro shows negative for 24 hours. Chest x-ray on the showed some cardiomegaly and some findings of CHF. IMPRESSION: This patient again, we were consulted due to echocardiogram that was done on the first, which showed a moderate pericardial effusion EF of 60%. Await her repeat echocardiogram at this time. She is partially loculated with fibrinous strands. No surgical intervention at this time until we review her second echocardiogram. Dictated by: PABLO Justin Han DOHERTY /4:07 PM /8:31 AM
[2017-07-24] MEDS: FUROSEMIDE 20 MG/2 ML VIAL IV PUSH SCH (08:38)
[2017-07-24] MEDS: INSULIN ASPART SUPPLEMENTAL SCALE SQ SCH ×4 (08:39→21:00)
[2017-07-24] MEDS: SODIUM CHLORIDE 0.9% FLUSH 10 ML FLUSH IV FLUSH SCH ×2 (08:40→21:06)
--- NOTE | 2017-07-24 10:23 | HHI.PR ---
Subjective Remarks Follow-up for shortness of breathing Patient stated her breathing has improved some today. She stated that she did not take the Claritin-D. Patient stated that she is too tired to the CT scan yesterday, but she will have that completed today. Denies any chest pain. Continues to have cough but that has improved. Remains afebrile. Objective Vitals Vital Signs Date Time Temp Pulse Resp B/P (MAP) Pulse Ox O2 Delivery O2 Flow Rate FiO2 07/24/17 10:05 109 07/24/17 10:04 102 07/24/17 09:23 100 07/24/17 08:14 104 07/24/17 07:46 107 07/24/17 07:37 98.1 104 14 114/66 (82) 95 07/24/17 06:15 100 07/24/17 05:00 108 07/24/17 04:42 98.7 116 130/79 (96) 91 07/24/17 04:00 108 07/24/17 03:00 110 07/24/17 02:00 98 07/24/17 01:00 98 07/24/17 00:00 98 07/23/17 23:00 99.0 109 117/69 (85) 91 07/23/17 23:00 104 07/23/17 22:00 104 07/23/17 21:00 98.6 100 135/74 (94) 92 07/23/17 21:00 88 07/23/17 20:00 96 07/23/17 19:00 87 07/23/17 18:00 90 07/23/17 17:00 86 07/23/17 16:00 84 07/23/17 15:15 98.1 89 20 111/63 (79) 93 07/23/17 15:00 89 07/23/17 14:00 82 07/23/17 13:00 84 07/23/17 12:00 100 07/23/17 11:31 98.2 92 20 125/76 (92) 94 07/23/17 11:00 116 I/O 07/23/17 07/23/17 07/23/17 07/24/17 07/24/17 07/24/17 06:59 14:59 22:59 06:59 14:59 22:59 Intake Total 1200 ml 240 ml Output Total 1650 ml 725 ml Balance -1650 ml 1200 ml -485 ml Intake Oral 1200 ml 240 ml Output Urine Total 1650 ml 725 ml # Voids 3 4 Result Diagram: 07/23/1793407/23/17834 Objective Remarks GENERAL: in NAD SKIN: Warm and dry. HEAD: Normocephalic. EYES: No scleral icterus. No injection or drainage. NECK: Supple, trachea midline. No JVD or lymphadenopathy. CARDIOVASCULAR: Irregular rate and irregular rhythm without murmurs, gallops, or rubs. neg edema RESPIRATORY: Breath sounds equal bilaterally. No accessory muscle use. GASTROINTESTINAL: Abdomen soft, non-tender, nondistended. Medications and IVs Current Medications Sodium Chloride (NS Flush) 2 ml UNSCH PRN IVF FLUSH AFTER USING IV ACCESS Last administered on 07/22/17 20:47; Start 07/22/17 at 19:45; Stop 07/22/17 at 22:46 ; Status DC Furosemide (Lasix Inj) 40 mg ONCE ONCE IV PUSH Last administered on 07/22/17 20:47; Start 07/22/17 at 20:30; Stop 07/22/17 at 20:31; Status DC Nitroglycerin (Nitrostat Sl) 0.4 mg ONCE ONCE SL Last administered on 21:28; Start 07/22/17 at 21:15; Stop 07/22/17 at 21:16; Status DC Acetaminophen (Tylenol) 650 mg ONCE ONCE PO Last administered on 07/22/17 21: 49; Start 07/22/17 at 21:45; Stop 07/22/17 at 21:46; Status DC Nitroglycerin (Nitroglycerin 2% Oint) 0.5 inch ONCE ONCE TOPICAL Last administered on 07/22/17 22:14; Start 07/22/17 at 22:00; Stop 07/22/17 at 22:01 ; Status DC Sotalol HCl (Betapace) 80 mg ONCE ONCE PO Last administered on 07/23/17 01: 44; Start 07/22/17 at 22:30; Stop 07/22/17 at 22:41; Status DC Diltiazem HCl (Cardizem Cd) 120 mg ONCE ONCE PO Last administered on 01:44; Start 07/22/17 at 22:30; Stop 07/22/17 at 22:41; Status DC Apixaban (Eliquis) 5 mg ONCE ONCE PO Last administered on 07/23/17 01:44; Start 07/22/17 at 22:30; Stop 07/22/17 at 22:41; Status DC Hydrocortisone (Cortef) 5 mg ONCE ONCE PO Last administered on 07/23/17 01: 44; Start 07/22/17 at 22:30; Stop 07/22/17 at 22:41; Status DC Potassium Chloride (KCl) 20 meq ONCE ONCE PO Last administered on 07/23/17 01:45; Start 07/22/17 at 22:30; Stop 07/22/17 at 22:41; Status DC Sodium Chloride (NS Flush) 2 ml UNSCH PRN IV FLUSH FLUSH AFTER USING IV ACCESS ; Start 07/22/17 at 22:45; Stop 07/22/17 at 22:49; Status DC Sodium Chloride (NS Flush) 2 ml BID IV FLUSH ; Start 07/23/17 at 09:00; Stop 07/23/17 at 09:00; Status DC Naloxone HCl (Narcan Inj) 0.4 mg UNSCH PRN IV PUSH SEE LABEL COMMENTS; Start 07/22/17 at 22:45 Furosemide (Lasix Inj) 40 mg BID@09,18 IV PUSH ; Start 07/23/17 at 09:00; Stop 07/23/17 at 09:00; Status DC Sodium Chloride (NS Flush) 2 ml BID IV FLUSH Last administered on 07/24/17 08 :40; Start 07/23/17 at 09:00 Sodium Chloride (NS Flush) 2 ml UNSCH PRN IVF FLUSH AFTER USING IV ACCESS; Start 07/22/17 at 23:00 Dextrose (D50w (Vial) Inj) 50 ml UNSCH PRN IV PUSH HYPOGLYCEMIA-SEE COMMENTS; Start 07/23/17 at 00:45; Stop 07/23/17 at 08:38; Status DC Glucagon (Glucagon Inj) 1 mg UNSCH PRN OTHER HYPOGLYCEMIA-SEE COMMENTS; Start 07/23/17 at 00:45; Stop 07/23/17 at 08:39; Status DC Alprazolam (Xanax) 0.25 mg Q8H PRN PO ANXIETY Last administered on 07/24/17 08:35; Start 07/23/17 at 08:30 Digoxin (Lanoxin) 0.125 mg DAILY PO Last administered on 07/24/17 08:37; Start 07/23/17 at 09:00 Docusate Sodium (Colace) 100 mg DAILY PRN PO Constipation Last administered on 07/24/17 08:42; Start 07/23/17 at 08:30 Hydrocortisone (Cortef) 7.5 mg DAILY@0800 PO Last administered on 07/24/17 08 :35; Start 07/24/17 at 08:00 Hydrocortisone (Cortef) 5 mg AC DINNER PO Last administered on 07/23/17 15: 35; Start 07/23/17 at 16:00 Levothyroxine Sodium (Synthroid) 25 mcg DAILY@0600 PO Last administered on 10:12; Start 07/23/17 at 09:00; Stop 07/23/17 at 10:34; Status DC Meclizine HCl (Antivert) 12.5 mg DAILY PRN PO VERTIGO Last administered on 08:58; Start 07/23/17 at 08:30 Potassium Chloride (KCl) 20 meq BID PO Last administered on 07/24/17 08:36; Start 07/23/17 at 09:00 Sotalol HCl (Betapace) 80 mg BID PO Last administered on 07/24/17 08:37; Start 07/23/17 at 09:00 Torsemide (Demadex) 5 mg DAILY PO Last administered on 07/23/17 10:16; Start 07/23/17 at 09:00; Stop 07/23/17 at 16:14; Status DC Diltiazem HCl (Cardizem Cd) 120 mg DAILY PO Last administered on 07/24/17 08: 36; Start 07/24/17 at 09:00 Dextrose (D50w (Vial) Inj) 50 ml UNSCH PRN IV PUSH HYPOGLYCEMIA-SEE COMMENTS; Start 07/23/17 at 08:30 Glucagon (Glucagon Inj) 1 mg UNSCH PRN OTHER HYPOGLYCEMIA-SEE COMMENTS; Start 07/23/17 at 08:30 Miscellaneous (Pill Splitter) 1 ea UNSCH PRN OTHER SEE LABEL COMMENTS; Start 07/23/17 at 08:45 Ondansetron HCl (Zofran Inj) 4 mg Q8HR PRN IV PUSH nausea/vomiting Last administered on 07/23/17 11:36; Start 07/23/17 at 10:45 Acetaminophen (Tylenol) 500 mg Q4H PRN PO pain 1-10 Last administered on 08:34; Start 07/23/17 at 10:45 Loratadine/ Pseudoephedrine Sulfate (Claritin-D 12 Hr) 1 tab Q12HR PO Last administered on 07/24/17 08:37; Start 07/23/17 at 21:00 Insulin Aspart (NovoLOG SUPPLEMENTAL SCALE) 1 ACHS SLIDING SCALE SQ Last administered on 07/24/17 08:39; Start 07/23/17 at 17:00 Apixaban (Eliquis) 5 mg BID PO Last administered on 07/24/17 08:36; Start at 21:00 Furosemide (Lasix Inj) 20 mg BID@09,18 IV PUSH Last administered on 07/24/17 08:38; Start 07/23/17 at 18:00 Vancomycin HCl 1000 mg/Sodium Chloride 250 ml @ 250 mls/hr ONCE ONCE IV ; Start 07/23/17 at 21:00; Stop 07/23/17 at 22:32; Status DC A/P Problem List: (1) Pericardial effusion ICD Code: I31.3 - Pericardial effusion (noninflammatory) (2) Atrial fibrillation ICD Code: I48.91 - Unspecified atrial fibrillation Status: Chronic (3) Diabetes ICD Code: E11.9 - Type 2 diabetes mellitus without complications Assessment and Plan 77 y/o female with a history of afib, dm, hypothyroid, anxiety, depression, vertigo presented to the ED with complaints of sob at rest. Dyspnea -Unsure etiology. Maybe due to worsening pericardial effusion versus CHF versus URI. -Chest x-ray suggests CHF exacerbation. BNP 203. Currently on Lasix IV. -Echo reviewed significant for moderate amount pericardial effusion with signs of pre-tamponade. -Speech Instructor and cardiovascular surgeon following appreciate consult. -All Round Logger also consulted a CT scan of thorax was ordered to rule out any malignancy. Patient also had her pulmonary function test done this morning. Pericardial effusion, echo on 07/14 shows pericardial effusion -Repeat echo on 07/23 showed moderate amount pericardial effusion with no pre- tamponade. -Cardiovascular surgeon is following. Afib, chronic -Continue home medications Sotalol and Cardizem -Her oceanography professor was consulted. Hypothyroid, chronic -TSH is 0.0005 continues to be suppressed. Patient stated that she takes Synthroid every other day. Recommending discontinuing medication, but patient stated she will follow up with her rf technician. Iatrogenic hyperthyroidism -see medication as above. Adrenal insufficiency -Continue her current regimen. Follow-up with rf technician. DM, chronic -Hold oral hypoglycemic medication. On insulin sliding scale. DVT prophylaxis: Monika Ball Lydia Thuy MD Jul 24, 2017 10:23
--- NOTE | 2017-07-24 14:33 | PD.CAR.PN ---
CVT Progress Note Subjective/Hospital Course: repeat echo unchanged , no RV strain , no tamponade or cardiac compromise , no surgical intervention at this time ct thorax pending per Dr Rosario Objective: GENERAL: SKIN: Warm and dry. HEAD: Normocephalic. EYES: No scleral icterus. No injection or drainage. NECK: Supple, trachea midline. No JVD or lymphadenopathy. CARDIOVASCULAR: irregular rate and rhythm without murmurs, gallops, or rubs. RESPIRATORY: diminished in bases Breath sounds equal bilaterally. No accessory muscle use. GASTROINTESTINAL: Abdomen soft, non-tender, nondistended. MUSCULOSKELETAL: No cyanosis, or edema. BACK: Nontender without obvious deformity. No CVA tenderness. Vital Signs Date Time Temp Pulse Resp B/P (MAP) Pulse Ox O2 Delivery O2 Flow Rate FiO2 07/24/17 13:28 98 07/24/17 12:08 98 07/24/17 11:01 97 07/24/17 11:00 97.9 104 15 104/63 (77) 95 07/24/17 10:05 109 07/24/17 10:04 102 07/24/17 09:23 100 07/24/17 08:14 104 07/24/17 07:46 107 07/24/17 07:37 98.1 104 14 114/66 (82) 95 07/24/17 06:15 100 07/24/17 05:00 108 07/24/17 04:42 98.7 116 130/79 (96) 91 07/24/17 04:00 108 07/24/17 03:00 110 07/24/17 02:00 98 07/24/17 01:00 98 07/24/17 00:00 98 07/23/17 23:00 99.0 109 117/69 (85) 91 07/23/17 23:00 104 07/23/17 22:00 104 07/23/17 21:00 98.6 100 135/74 (94) 92 07/23/17 21:00 88 07/23/17 20:00 96 07/23/17 19:00 87 07/23/17 18:00 90 07/23/17 17:00 86 07/23/17 16:00 84 07/23/17 15:15 98.1 89 20 111/63 (79) 93 07/23/17 15:00 89 Result Diagram: 07/23/17 0935 07/23/17 0835 Telemetry: afib (1) moderate pericardial effusion Plan: stable , no change from prior echo, no surgical intervention, pt to f/u with Dr Garvey (2) Atrial fibrillation Plan: on sotalol , Afshan Ly Jul 24, 2017 14:33
--- NOTE | 2017-07-24 15:42 | PD.CARD.PN ---
Subjective Subjective Remarks The patient states she feels slightly less SOB and fatigued/weak. She has lightheadedness with change of vertical position. Currently hemodynamically stable. Diuresed after lasix IV yesterday, but has not urinated much today. She has palpitations after episodes of coughing. She is coughing less today (Shana Patel) Objective Medications Current Medications Medications (Trade) Dose Ordered Sig/Chang Route Start Time Stop Time Status Last Admin (Narcan Inj) 0.4 mg UNSCH PRN IV PUSH 07/22/17 22:45 (NS Flush) 2 ml BID IV FLUSH 07/23/17 09:00 07/24/17 08:40 (NS Flush) 2 ml UNSCH PRN IVF 07/22/17 23:00 (Xanax) 0.25 mg Q8H PRN PO 07/23/17 08:30 07/24/17 08:35 (Lanoxin) 0.125 mg DAILY PO 07/23/17 09:00 07/24/17 08:37 (Colace) 100 mg DAILY PRN PO 07/23/17 08:30 07/24/17 08:42 (Cortef) 7.5 mg DAILY@0800 PO 07/24/17 08:00 07/24/17 08:35 (Cortef) 5 mg AC DINNER PO 07/23/17 16:00 07/23/17 15:35 (Antivert) 12.5 mg DAILY PRN PO 07/23/17 08:30 07/23/17 08:58 (KCl) 20 meq BID PO 07/23/17 09:00 07/24/17 08:36 (Betapace) 80 mg BID PO 07/23/17 09:00 07/24/17 08:37 (Cardizem Cd) 120 mg DAILY PO 07/24/17 09:00 07/24/17 08:36 (D50w (Vial) Inj) 50 ml UNSCH PRN IV PUSH 07/23/17 08:30 (Glucagon Inj) 1 mg UNSCH PRN OTHER 07/23/17 08:30 (Pill Splitter) 1 ea UNSCH PRN OTHER 07/23/17 08:45 (Zofran Inj) 4 mg Q8HR PRN IV PUSH 07/23/17 10:45 07/23/17 11:36 (Tylenol) 500 mg Q4H PRN PO 07/23/17 10:45 07/24/17 08:34 (NovoLOG SUPPLEMENTAL SCALE) 1 ACHS SLIDING SCALE SQ 07/23/17 17:00 07/24/17 12:23 (Eliquis) 5 mg BID PO 07/23/17 21:00 07/24/17 08:36 (Lasix Inj) 20 mg BID@09,18 IV PUSH 07/23/17 18:00 07/24/17 08:38 Vital Signs / I&O Vital Signs Date Time Temp Pulse Resp B/P (MAP) Pulse Ox O2 Delivery O2 Flow Rate FiO2 07/24/17 15:16 98.0 88 20 110/60 (77) 94 07/24/17 15:16 88 07/24/17 14:32 88 07/24/17 13:28 98 07/24/17 12:08 98 07/24/17 11:01 97 07/24/17 11:00 97.9 104 15 104/63 (77) 95 07/24/17 10:05 109 07/24/17 10:04 102 07/24/17 09:23 100 07/24/17 08:14 104 07/24/17 07:46 107 07/24/17 07:37 98.1 104 14 114/66 (82) 95 07/24/17 06:15 100 07/24/17 05:00 108 07/24/17 04:42 98.7 116 130/79 (96) 91 07/24/17 04:00 108 07/24/17 03:00 110 07/24/17 02:00 98 07/24/17 01:00 98 07/24/17 00:00 98 07/23/17 23:00 99.0 109 117/69 (85) 91 07/23/17 23:00 104 07/23/17 22:00 104 07/23/17 21:00 98.6 100 135/74 (94) 92 07/23/17 21:00 88 07/23/17 20:00 96 07/23/17 19:00 87 07/23/17 18:00 90 07/23/17 17:00 86 07/23/17 16:00 84 I/O 07/23/17 07/23/17 07/23/17 07/24/17 10/11/17 10/11/17 07:00 15:00 23:00 07:00 15:00 23:00 Intake Total 1200 ml 240 ml Output Total 1650 ml 725 ml Balance -1650 ml 1200 ml -485 ml Intake Oral 1200 ml 240 ml Output Urine Total 1650 ml 725 ml # Voids 3 4 Physical Exam GENERAL: Elderly female sitting in up in the bed. Daughter bedside. Appears less ill today SKIN: Warm and dry. HEAD: Atraumatic. Normocephalic. EYES: Pupils equal and round. No scleral icterus. No injection or drainage. ENT: No nasal bleeding or discharge. Mucous membranes pink and moist. NECK: Trachea midline. CARDIOVASCULAR: Irreg irreg, tachycardia RESPIRATORY: very diminished bases bilateral GASTROINTESTINAL: Abdomen soft, non-tender, nondistended. MUSCULOSKELETAL: Extremities without clubbing, cyanosis, or edema. NEUROLOGICAL: Awake and alert. No obvious cranial nerve deficits. Motor grossly within normal limits. Five out of 5 muscle strength in the arms and legs. Normal speech. PSYCHIATRIC: Appropriate mood and affect; insight and judgment normal. Laboratory Laboratory Tests Test 07/23/17 20:48 Erythrocyte Sedimentation Rate 54 mm/hr C-Reactive Protein 5.00 MG/DL Imaging Last 72 hours Impressions Chest X-Ray 07/23/17 0000 Signed Impressions: Service Date/Time: Sunday, July 23, 2017 21:09 - CONCLUSION: No acute pulmonary infiltrates. Stable cardiomegaly. Mehdi Hernández MD Chest X-Ray 07/22/17 1938 Signed Impressions: Service Date/Time: Saturday, July 22, 2017 19:50 - CONCLUSION: 1. Cardiomegaly and findings of congestive heart failure. Man Tobar MD (Shana Patel) Assessment and Plan Problem List: (1) moderate pericardial effusion (2) Atrial fibrillation ICD Codes: I48.91 - Unspecified atrial fibrillation Status: Chronic Assessment and Plan Bilateral pleural effusions. Recent thoracentesis without fluid studies. Moderate pericardial effusion Aortic regurgitation and mild MS Atrial fibrillation on Eliquis prior to admission. Acute on chronic CHF exacerbation. Dilated IVC Adrenal insufficiency Iatrogenic hyperthyroidism Elevated ESR and CRP PLAN Pending CT chest and spirometry Pending NORMA Decrease lasix daily Continue Eliquis and Sotalol Discussed with patient and daughter. The patient was seen and evaluated by Dr Garvey who completed face to face encounter, physical exam and participated in evaluation and management (Shana Patel) Assessment and Plan The exam, history, and the medical decision-making described in the above note were completed with the assistance of the mid-level provider. I reviewed and agree with the findings presented. I attest that I had a [id number] encounter with the patient on the same day, and personally performed and documented my assessment and findings in the medical record. Seems ill out of proportion to afib but has diuresed well, has high sed rate treating for possible pneumonia seems reasonable. (Jordi Garvey MD) Shana Patel Jul 24, 2017 15:42 Jordi Garvey MD Jul 25, 2017 15:31
--- NOTE | 2017-07-24 17:20 | RADRPT ---
EXAM DATE/TIME: 07/24/2017 15:15 [facility] COMPARISON: No previous studies available for comparison. INDICATIONS : Pleural effusion. RADIATION DOSE: 5.1 CTDIvol (mGy) MEDICAL HISTORY : Cardiovascular disease. Diabetes mellitus type 2. Hypertension. Skin cancer. SURGICAL HISTORY : None. ENCOUNTER: Initial ACUITY: 1 day PAIN SCALE: 0/10 LOCATION: chest TECHNIQUE: Volumetric scanning of the chest was performed. Using automated exposure control and adjustment of t he mA and/or kV according to patient size, radiation dose was kept as low as reasonably achievable to obtain optimal diagnostic quality images. DICOM format image data is available electronically for r eview and comparison. Follow-up recommendations for detected pulmonary nodules are based at a minimum on nodule size and pa tient risk factors according to Fleischner Society Guidelines. FINDINGS: Small bilateral pleural effusions are identified. There is subsegmental atelectasis in the both base s. Small pericardial effusion is present. There is heavy calcification of the mitral annulus. No abno rmally enlarged lymph nodes are identified. The adrenal glands are unremarkable. There are simple cysts on the right the largest measuring 6 cm. CONCLUSION: 1. Bibasilar atelectasis versus pneumonia with small bilateral effusion 2. Small pericardial effusion Man Tobar MD on July 24, 2017 at 17:14 Board Certified Radiologist. This report was verified electronically.
[2017-07-25] VITALS (28 sets, daily range): BP systolic 96–122; BP diastolic 57–78; PULSE 71–99; RESP 18–20; TEMP 97.6–98.3; O2SAT 92–96
[2017-07-25] MEDS: ACETAMINOPHEN 500 MG CPLT PO PRN ×3 (03:54→21:26)
[2017-07-25] MEDS: ALPRAZolam 0.25 MG TAB PO PRN ×2 (03:54→21:25)
[2017-07-25 05:58] LABS: HEMATOCRIT 40.9 % (35.0-46.0); MEAN CELL VOLUME 92.3 FL (80.0-100.0); MEAN CORPUSCULAR HEMOGLOBIN 31.3 PG (27.0-34.0); MEAN CORPUSCULAR HGB CONC 33.9 % (32.0-36.0); PLATELET COUNT 196 TH/MM3 (150-450); RED BLOOD COUNT 4.43 MIL/MM3 (4.00-5.30); RED CELL DISTRIBUTION WIDTH 13.3 % (11.6-17.2); REVIEW FLAG FINAL; WHITE BLOOD COUNT 8.7 TH/MM3 (4.0-11.0)
[2017-07-25 06:22] LABS: BICARBONATE 28.4 MEQ/L (21.0-32.0); POTASSIUM 3.9 MEQ/L (3.5-5.1)
[2017-07-25] MEDS: INSULIN ASPART SUPPLEMENTAL SCALE SQ SCH ×4 (08:00→21:28)
[2017-07-25] MEDS: HYDROCORTISONE 10 MG TAB PO SCH ×2 (08:45→16:00)
[2017-07-25] MEDS: DILTIAZEM-CD 120 MG CAP ER PO SCH (08:46)
[2017-07-25] MEDS: SOTALOL HCL 80 MG TAB PO SCH ×2 (08:46→21:26)
[2017-07-25] MEDS: APIXABAN 5 MG TABLET PO SCH ×2 (08:46→21:26)
[2017-07-25] MEDS: DIGOXIN 0.125 MG TAB PO SCH (08:46)
[2017-07-25] MEDS: POTASSIUM CHLORIDE 20 MEQ CONTROLLED RELEASE TAB PO SCH ×2 (08:47→21:27)
[2017-07-25] MEDS: FUROSEMIDE 20 MG/2 ML VIAL IV PUSH SCH (08:49)
[2017-07-25] MEDS: SODIUM CHLORIDE 0.9% FLUSH 10 ML FLUSH IV FLUSH SCH ×2 (08:49→21:00)
[2017-07-25] MEDS ORDERED: MAGNESIUM HYDROXIDE SUSP 30 ML CUP PO PRN (11:00)
--- NOTE | 2017-07-25 11:15 | HHI.PR ---
Subjective Remarks Patient continues complaining that she feels"awful." She complains of chest congestion and cough. she feels like symptoms are not improving. Remains afebrile. She does not want to take any [id number] cold medication. She stated that she does not want to be treated with any medication unless recommended by Dr. Garvey. Patient stated that she is willing to take antibiotics if needed. Objective Vitals Vital Signs Date Time Temp Pulse Resp B/P (MAP) Pulse Ox O2 Delivery O2 Flow Rate FiO2 07/25/17 07:20 97.6 96 18 112/68 (83) 96 07/25/17 06:01 87 07/25/17 05:01 83 07/25/17 04:01 83 07/25/17 03:01 97.7 79 18 121/58 (79) 93 07/25/17 03:01 86 07/25/17 02:01 76 07/25/17 01:01 76 07/25/17 00:01 80 07/24/17 23:01 97.6 92 18 108/50 (69) 91 07/24/17 23:01 90 07/24/17 22:18 95 21 07/24/17 22:01 71 07/24/17 21:01 69 07/24/17 20:01 68 07/24/17 19:01 86 07/24/17 19:01 98.2 78 18 117/64 (81) 92 07/24/17 18:20 78 07/24/17 17:22 78 07/24/17 16:09 86 07/24/17 15:16 98.0 88 20 110/60 (77) 94 07/24/17 15:16 88 07/24/17 14:32 88 07/24/17 13:28 98 07/24/17 12:08 98 I/O 07/24/17 07/24/17 07/24/17 07/25/17 07/25/17 07/25/17 07:00 15:00 23:00 07:00 15:00 23:00 Intake Total 240 ml 0 ml 340 ml Output Total 725 ml Balance -485 ml 0 ml 340 ml Intake Oral 240 ml 340 ml IV Total 0 ml Output Urine Total 725 ml # Voids 4 # Bowel Movements 0 Result Diagram: 07/25/1752207/25/17522 Objective Remarks GENERAL: in NAD CARDIOVASCULAR: Irregular rate and irregular rhythm without murmurs, gallops, or rubs. neg edema RESPIRATORY: Mild bilateral rhonchi with poor inspiratory effort. No wheezing or crackles noted. No accessory muscle use. GASTROINTESTINAL: Abdomen soft, non-tender, nondistended. Medications and IVs Current Medications Sodium Chloride (NS Flush) 2 ml UNSCH PRN IVF FLUSH AFTER USING IV ACCESS Last administered on 07/22/17 20:47; Start 07/22/17 at 19:45; Stop 07/22/17 at 22:46 ; Status DC Furosemide (Lasix Inj) 40 mg ONCE ONCE IV PUSH Last administered on 07/22/17 20:47; Start 07/22/17 at 20:30; Stop 07/22/17 at 20:31; Status DC Nitroglycerin (Nitrostat Sl) 0.4 mg ONCE ONCE SL Last administered on 21:28; Start 07/22/17 at 21:15; Stop 07/22/17 at 21:16; Status DC Acetaminophen (Tylenol) 650 mg ONCE ONCE PO Last administered on 07/22/17 21: 49; Start 07/22/17 at 21:45; Stop 07/22/17 at 21:46; Status DC Nitroglycerin (Nitroglycerin 2% Oint) 0.5 inch ONCE ONCE TOPICAL Last administered on 07/22/17 22:14; Start 07/22/17 at 22:00; Stop 07/22/17 at 22:01 ; Status DC Sotalol HCl (Betapace) 80 mg ONCE ONCE PO Last administered on 07/23/17 01: 44; Start 07/22/17 at 22:30; Stop 07/22/17 at 22:41; Status DC Diltiazem HCl (Cardizem Cd) 120 mg ONCE ONCE PO Last administered on 01:44; Start 07/22/17 at 22:30; Stop 07/22/17 at 22:41; Status DC Apixaban (Eliquis) 5 mg ONCE ONCE PO Last administered on 07/23/17 01:44; Start 07/22/17 at 22:30; Stop 07/22/17 at 22:41; Status DC Hydrocortisone (Cortef) 5 mg ONCE ONCE PO Last administered on 07/23/17 01: 44; Start 07/22/17 at 22:30; Stop 07/22/17 at 22:41; Status DC Potassium Chloride (KCl) 20 meq ONCE ONCE PO Last administered on 07/23/17 01:45; Start 07/22/17 at 22:30; Stop 07/22/17 at 22:41; Status DC Sodium Chloride (NS Flush) 2 ml UNSCH PRN IV FLUSH FLUSH AFTER USING IV ACCESS ; Start 07/22/17 at 22:45; Stop 07/22/17 at 22:49; Status DC Sodium Chloride (NS Flush) 2 ml BID IV FLUSH ; Start 07/23/17 at 09:00; Stop 07/23/17 at 09:00; Status DC Naloxone HCl (Narcan Inj) 0.4 mg UNSCH PRN IV PUSH SEE LABEL COMMENTS; Start 07/22/17 at 22:45 Furosemide (Lasix Inj) 40 mg BID@,18 IV PUSH ; Start 07/23/17 at 09:00; Stop 07/23/17 at 09:00; Status DC Sodium Chloride (NS Flush) 2 ml BID IV FLUSH Last administered on 07/25/17 08 :49; Start 07/23/17 at 09:00 Sodium Chloride (NS Flush) 2 ml UNSCH PRN IVF FLUSH AFTER USING IV ACCESS; Start 07/22/17 at 23:00 Dextrose (D50w (Vial) Inj) 50 ml UNSCH PRN IV PUSH HYPOGLYCEMIA-SEE COMMENTS; Start 07/23/17 at 00:45; Stop 07/23/17 at 08:38; Status DC Glucagon (Glucagon Inj) 1 mg UNSCH PRN OTHER HYPOGLYCEMIA-SEE COMMENTS; Start 07/23/17 at 00:45; Stop 07/23/17 at 08:39; Status DC Alprazolam (Xanax) 0.25 mg Q8H PRN PO ANXIETY Last administered on 07/25/17 03:54; Start 07/23/17 at 08:30 Digoxin (Lanoxin) 0.125 mg DAILY PO Last administered on 07/25/17 08:46; Start 07/23/17 at 09:00 Docusate Sodium (Colace) 100 mg DAILY PRN PO Constipation Last administered on 10/11/17at 08:42; Start 07/23/17 at 08:30 Hydrocortisone (Cortef) 7.5 mg DAILY@0800 PO Last administered on 07/25/17 08 :45; Start 07/24/17 at 08:00 Hydrocortisone (Cortef) 5 mg AC DINNER PO Last administered on 07/24/17 16: 00; Start 07/23/17 at 16:00 Levothyroxine Sodium (Synthroid) 25 mcg DAILY@0600 PO Last administered on 10:12; Start 07/23/17 at 09:00; Stop 07/23/17 at 10:34; Status DC Meclizine HCl (Antivert) 12.5 mg DAILY PRN PO VERTIGO Last administered on 08:58; Start 07/23/17 at 08:30 Potassium Chloride (KCl) 20 meq BID PO Last administered on 07/25/17 08:47; Start 07/23/17 at 09:00 Sotalol HCl (Betapace) 80 mg BID PO Last administered on 07/25/17 08:46; Start 07/23/17 at 09:00 Torsemide (Demadex) 5 mg DAILY PO Last administered on 07/23/17 10:16; Start 07/23/17 at 09:00; Stop 07/23/17 at 16:14; Status DC Diltiazem HCl (Cardizem Cd) 120 mg DAILY PO Last administered on 07/25/17 08: 46; Start 07/24/17 at 09:00 Dextrose (D50w (Vial) Inj) 50 ml UNSCH PRN IV PUSH HYPOGLYCEMIA-SEE COMMENTS; Start 07/23/17 at 08:30 Glucagon (Glucagon Inj) 1 mg UNSCH PRN OTHER HYPOGLYCEMIA-SEE COMMENTS; Start 07/23/17 at 08:30 Miscellaneous (Pill Splitter) 1 ea UNSCH PRN OTHER SEE LABEL COMMENTS; Start 07/23/17 at 08:45 Ondansetron HCl (Zofran Inj) 4 mg Q8HR PRN IV PUSH nausea/vomiting Last administered on 07/23/17 11:36; Start 07/23/17 at 10:45 Acetaminophen (Tylenol) 500 mg Q4H PRN PO pain 1-10 Last administered on 03:54; Start 07/23/17 at 10:45 Loratadine/ Pseudoephedrine Sulfate (Claritin-D 12 Hr) 1 tab Q12HR PO Last administered on 07/24/17 08:37; Start 07/23/17 at 21:00; Stop 07/24/17 at 10 :25; Status DC Insulin Aspart (NovoLOG SUPPLEMENTAL SCALE) 1 ACHS SLIDING SCALE SQ Last administered on 07/25/17 08:00; Start 07/23/17 at 17:00 Apixaban (Eliquis) 5 mg BID PO Last administered on 07/25/17 08:46; Start at 21:00 Furosemide (Lasix Inj) 20 mg BID@09,18 IV PUSH Last administered on 07/24/17 08:38; Start 07/23/17 at 18:00; Stop 07/24/17 at 15:32; Status DC Vancomycin HCl 1000 mg/Sodium Chloride 250 ml @ 250 mls/hr ONCE ONCE IV ; Start 07/23/17 at 21:00; Stop 07/23/17 at 22:32; Status DC Furosemide (Lasix Inj) 20 mg DAILY IV PUSH Last administered on 07/25/17 08: 49; Start 07/25/17 at 09:00 Doxycycline Hyclate (Vibramycin) 100 mg BID PO ; Start 07/25/17 at 11:00; Status UNV Magnesium Hydroxide (Milk Of Magnesia Liq) 30 ml DAILY PRN PO constipation; Start 07/25/17 at 11:00; Status UNV Magnesium Hydroxide (Milk Of Magnesia Liq) 30 ml ONCE ONCE PO ; Start at 11:00; Stop 07/25/17 at 11:01; Status UNV A/P Problem List: (1) Pericardial effusion ICD Code: I31.3 - Pericardial effusion (noninflammatory) (2) Atrial fibrillation ICD Code: I48.91 - Unspecified atrial fibrillation Status: Chronic (3) Diabetes ICD Code: E11.9 - Type 2 diabetes mellitus without complications Assessment and Plan 77 y/o female with a history of afib, dm, hypothyroid, anxiety, depression, vertigo presented to the ED with complaints of sob at rest. Dyspnea -Unsure etiology. Maybe due to worsening pericardial effusion versus CHF versus URI. -Chest x-ray suggests CHF exacerbation. BNP 203. Patient on Lasix per pump erector helper. Dosage was decreased. -Echo reviewed by [facility] and they stated that her car effusion is stable. -Salsa Dance Instructor and cardiovascular surgeon following appreciate consult. -Car Lot Attendant following. CT of the chest suggest possible bilateral atelectasis versus pneumonia. -Since patient is URI symptoms or not improving will treat empirically for pneumonia with doxycycline. Pericardial effusion, echo on 07/14 shows pericardial effusion -Repeat echo on 07/23 showed moderate amount pericardial effusion with no pre- tamponade. -Cardiovascular surgeo reviewed and stated that percardial effusion is stable. Afib, chronic -Continue home medications Sotalol and Cardizem -Her pump erector helper was consulted. Hypothyroid, chronic -TSH is 0.0005 continues to be suppressed. Patient stated that she takes Synthroid every other day. Recommending discontinuing medication, but patient stated she will follow up with her regional airline pilot. Iatrogenic hyperthyroidism -see medication as above. Adrenal insufficiency -Continue her current regimen. Follow-up with regional airline pilot. DM, chronic -Hold oral hypoglycemic medication. On insulin sliding scale. DVT prophylaxis: SCDs, Eliquis Discussed with patient's nurse. Patient does not want to start any medication unless it is recommended by . Discharge Planning Once cleared by Dr. Garvey patient can be discharged home. Francia Hernandez MD Jul 25, 2017 11:15
--- NOTE | 2017-07-25 12:37 | PD.CARD.PN ---
Subjective Subjective Remarks The patient feels worse today. Very fatigued. Had a coughing fit with productive cough earlier today. Sputum with opaque in color. (Shana Patel) Objective Medications Current Medications Medications (Trade) Dose Ordered Sig/Chang Route Start Time Stop Time Status Last Admin (Narcan Inj) 0.4 mg UNSCH PRN IV PUSH 07/22/17 22:45 (NS Flush) 2 ml BID IV FLUSH 07/23/17 09:00 07/25/17 08:49 (NS Flush) 2 ml UNSCH PRN IVF 07/22/17 23:00 (Xanax) 0.25 mg Q8H PRN PO 07/23/17 08:30 07/25/17 03:54 (Lanoxin) 0.125 mg DAILY PO 07/23/17 09:00 07/25/17 08:46 (Colace) 100 mg DAILY PRN PO 07/23/17 08:30 07/24/17 08:42 (Cortef) 7.5 mg DAILY@0800 PO 07/24/17 08:00 07/25/17 08:45 (Cortef) 5 mg AC DINNER PO 07/23/17 16:00 07/24/17 16:00 (Antivert) 12.5 mg DAILY PRN PO 07/23/17 08:30 07/23/17 08:58 (KCl) 20 meq BID PO 07/23/17 09:00 07/25/17 08:47 (Betapace) 80 mg BID PO 07/23/17 09:00 07/25/17 08:46 (Cardizem Cd) 120 mg DAILY PO 07/24/17 09:00 07/25/17 08:46 (D50w (Vial) Inj) 50 ml UNSCH PRN IV PUSH 07/23/17 08:30 (Glucagon Inj) 1 mg UNSCH PRN OTHER 07/23/17 08:30 (Pill Splitter) 1 ea UNSCH PRN OTHER 07/23/17 08:45 (Zofran Inj) 4 mg Q8HR PRN IV PUSH 07/23/17 10:45 07/23/17 11:36 (Tylenol) 500 mg Q4H PRN PO 07/23/17 10:45 07/25/17 03:54 (NovoLOG SUPPLEMENTAL SCALE) 1 ACHS SLIDING SCALE SQ 07/23/17 17:00 07/25/17 08:00 (Eliquis) 5 mg BID PO 07/23/17 21:00 07/25/17 08:46 (Lasix Inj) 20 mg DAILY IV PUSH 07/25/17 09:00 07/25/17 08:49 (Vibramycin) 100 mg BID PO 07/25/17 11:00 UNV (Milk Of Magnesia Liq) 30 ml DAILY PRN PO 07/25/17 11:00 UNV (Milk Of Magnesia Liq) 30 ml ONCE ONCE PO 07/25/17 11:00 07/25/17 11:01 UNV Vital Signs / I&O Vital Signs Date Time Temp Pulse Resp B/P (MAP) Pulse Ox O2 Delivery O2 Flow Rate FiO2 07/25/17 11:55 95 21 07/25/17 07:20 97.6 96 18 112/68 (83) 96 07/25/17 06:01 87 07/25/17 05:01 83 07/25/17 04:01 83 07/25/17 03:01 97.7 79 18 121/58 (79) 93 07/25/17 03:01 86 07/25/17 02:01 76 07/25/17 01:01 76 07/25/17 00:01 80 07/24/17 23:01 97.6 92 18 108/50 (69) 91 07/24/17 23:01 90 07/24/17 22:18 95 21 07/24/17 22:01 71 07/24/17 21:01 69 07/24/17 20:01 68 07/24/17 19:01 86 07/24/17 19:01 98.2 78 18 117/64 (81) 92 07/24/17 18:20 78 07/24/17 17:22 78 07/24/17 16:09 86 07/24/17 15:16 98.0 88 20 110/60 (77) 94 07/24/17 15:16 88 07/24/17 14:32 88 07/24/17 13:28 98 I/O 07/24/17 07/24/17 07/24/17 07/25/17 07/25/17 07/25/17 07:00 15:00 23:00 07:00 15:00 23:00 Intake Total 240 ml 0 ml 340 ml Output Total 725 ml Balance -485 ml 0 ml 340 ml Intake Oral 240 ml 340 ml IV Total 0 ml Output Urine Total 725 ml # Voids 4 # Bowel Movements 0 Physical Exam GENERAL: Elderly female sitting up in the chair SKIN: Warm and dry. Pallor HEAD: Atraumatic. Normocephalic. EYES: Pupils equal and round. No scleral icterus. No injection or drainage. ENT: No nasal bleeding or discharge. Mucous membranes pink and moist. NECK: Trachea midline. CARDIOVASCULAR: Irreg irreg RESPIRATORY: very diminished bases bilateral GASTROINTESTINAL: Abdomen soft, non-tender, nondistended. MUSCULOSKELETAL: Extremities without clubbing, cyanosis, or edema. NEUROLOGICAL: Awake and alert. No obvious cranial nerve deficits. Motor grossly within normal limits. Five out of 5 muscle strength in the arms and legs. Normal speech. PSYCHIATRIC: Appropriate mood and affect; insight and judgment normal. Laboratory Laboratory Tests Test 07/25/17 05:23 White Blood Count 8.7 TH/MM3 Red Blood Count 4.43 MIL/MM3 Hemoglobin 13.9 GM/DL Hematocrit 40.9 % Mean Corpuscular Volume 92.3 FL Mean Corpuscular Hemoglobin 31.3 PG Mean Corpuscular Hemoglobin Concent 33.9 % Red Cell Distribution Width 13.3 % Platelet Count 196 TH/MM3 Mean Platelet Volume 10.2 FL Blood Urea Nitrogen 23 MG/DL Creatinine 0.66 MG/DL Random Glucose 176 MG/DL Calcium Level 9.1 MG/DL Sodium Level 135 MEQ/L Potassium Level 3.9 MEQ/L Chloride Level 99 MEQ/L Carbon Dioxide Level 28.4 MEQ/L Anion Gap 8 MEQ/L Estimat Glomerular Filtration Rate 86 ML/MIN Imaging Last [address] 07/24/17 0000 Signed Impressions: Service Date/Time: Monday, July 24, 2017 15:15 - CONCLUSION: 1. Bibasilar atelectasis versus pneumonia with small bilateral effusion 2. Small pericardial effusion Man Tobar MD Chest X-Ray 07/23/17 0000 Signed Impressions: Service Date/Time: Sunday, July 23, 2017 21:09 - CONCLUSION: No acute pulmonary infiltrates. Stable cardiomegaly. Mehdi Hernández MD Chest X-Ray 07/22/17 193 Signed Impressions: Service Date/Time: Saturday, July 22, 2017 19:50 - CONCLUSION: 1. Cardiomegaly and findings of congestive heart failure. Man Tobar MD (Shana Patel) Assessment and Plan Problem List: (1) moderate pericardial effusion (2) Atrial fibrillation ICD Codes: I48.91 - Unspecified atrial fibrillation Status: Chronic Assessment and Plan Atrial fibrillation on Eliquis Aortic regurgitation and mild MS Acute on chronic CHF exacerbation. Dilated IVC Bilateral pleural effusions and small to moderate pericardial effusion Adrenal insufficiency Iatrogenic hyperthyroidism Elevated ESR and CRP Infiltrate vs atelectasis on CT chest PLAN IAN/cardioversion tomorrow with Dr Schaefer Pending spirometry results Agree with ABX for possible pneumonia. Continue Eliquis and Sotalol IS and breathing treatments Discussed with patient The patient was seen and evaluated by Dr Garvey who completed face to face encounter, physical exam and participated in evaluation and management (Shana Patel) Assessment and Plan The exam, history, and the medical decision-making described in the above note were completed with the assistance of the mid-level provider. I reviewed and agree with the findings presented. I attest that I had a [id number] encounter with the patient on the same day, and personally performed and documented my assessment and findings in the medical record. Treat pneumonia do cardioversion IAN as poorly tolerating afib. On sotalol (Jordi Garvey MD) Shana Patel Jul 25, 2017 12:37 Jordi Garvey MD Jul 25, 2017 15:38
[2017-07-25] MEDS ORDERED: MAGNESIUM HYDROXIDE SUSP 30 ML CUP PO ONE (13:15)
[2017-07-25] MEDS: DOXYCYCLINE HYCLATE 100 MG CAP PO SCH ×2 (14:55→21:26)
[2017-07-25] MEDS: RESP: ALBUTEROL 2.5 MG/IPRATROPIUM 0.5 MG NEB (PRN) NEB (15:11)
[2017-07-26] VITALS (25 sets, daily range): BP systolic 100–139; BP diastolic 57–77; PULSE 68–103; RESP 16–18; TEMP 97.8–98.4; O2SAT 92–96
[2017-07-26 06:27] LABS: HEMATOCRIT 43.5 % (35.0-46.0); MEAN CELL VOLUME 91.8 FL (80.0-100.0); MEAN CORPUSCULAR HEMOGLOBIN 30.7 PG (27.0-34.0); MEAN CORPUSCULAR HGB CONC 33.4 % (32.0-36.0); PLATELET COUNT 215 TH/MM3 (150-450); RED BLOOD COUNT 4.74 MIL/MM3 (4.00-5.30); RED CELL DISTRIBUTION WIDTH 13.4 % (11.6-17.2); REVIEW FLAG FINAL; WHITE BLOOD COUNT 8.8 TH/MM3 (4.0-11.0)
[2017-07-26 07:07] LABS: BICARBONATE 27.1 MEQ/L (21.0-32.0)
[2017-07-26] MEDS: INSULIN ASPART SUPPLEMENTAL SCALE SQ SCH ×5 (07:19→21:00)
[2017-07-26] MEDS: DILTIAZEM-CD 120 MG CAP ER PO SCH (08:10)
[2017-07-26] MEDS: ALPRAZolam 0.25 MG TAB PO PRN ×2 (08:10→20:27)
[2017-07-26] MEDS: HYDROCORTISONE 10 MG TAB PO SCH ×2 (08:10→15:14)
[2017-07-26] MEDS: DOXYCYCLINE HYCLATE 100 MG CAP PO SCH ×2 (08:10→20:21)
[2017-07-26] MEDS: FUROSEMIDE 20 MG/2 ML VIAL IV PUSH SCH (08:11)
[2017-07-26] MEDS: POTASSIUM CHLORIDE 20 MEQ CONTROLLED RELEASE TAB PO SCH ×2 (08:11→20:22)
[2017-07-26] MEDS: SODIUM CHLORIDE 0.9% FLUSH 10 ML FLUSH IV FLUSH SCH ×2 (08:11→20:22)
[2017-07-26] MEDS: DIGOXIN 0.125 MG TAB PO SCH (08:11)
[2017-07-26] MEDS: APIXABAN 5 MG TABLET PO SCH (08:11)
[2017-07-26] MEDS: SOTALOL HCL 80 MG TAB PO SCH (08:11)
[2017-07-26] MEDS: ACETAMINOPHEN 500 MG CPLT PO PRN ×2 (11:45→20:27)
[2017-07-26] MEDS ORDERED: PROPOFOL 200 MG/20 ML AMP IV ONE (12:00)
--- NOTE | 2017-07-26 12:46 | HHI.PR ---
Subjective Remarks Follow-up for upper respiratory symptoms and fatigue Patient stated that she feels a little better today. Continues to have cough and shortness of breathing but that has improved. No other complaints. Patient stated that procedure postponed until Saturday. I spoke to patient's nurse who stated that patient schedule for procedure at 2 pm. Objective Vitals Vital Signs Date Time Temp Pulse Resp B/P (MAP) Pulse Ox O2 Delivery O2 Flow Rate FiO2 07/26/17 12:22 16 07/26/17 12:00 74 07/26/17 12:00 98.2 84 16 124/72 (89) 92 07/26/17 11:00 86 07/26/17 10:00 88 07/26/17 09:00 100 07/26/17 08:00 98.4 103 18 139/77 (97) 93 07/26/17 08:00 92 07/26/17 07:00 96 07/26/17 06:00 92 07/26/17 05:06 98.4 73 18 128/62 (84) 92 07/26/17 05:00 84 07/26/17 04:00 86 07/26/17 03:00 83 07/26/17 02:00 84 07/26/17 01:00 80 07/26/17 00:09 98.4 79 18 105/57 (73) 93 07/26/17 00:00 92 07/25/17 23:00 83 07/25/17 22:00 88 07/25/17 21:20 98.3 99 18 122/78 (93) 92 07/25/17 21:00 92 07/25/17 20:00 99 07/25/17 19:00 84 07/25/17 18:00 75 07/25/17 17:00 88 07/25/17 16:00 96 07/25/17 15:02 97.6 77 20 114/60 (78) 94 07/25/17 15:00 71 07/25/17 14:00 76 07/25/17 13:00 76 I/O 07/25/17 07/25/17 07/25/17 07/26/17 07/26/17 07/26/17 07:00 15:00 23:00 07:00 15:00 23:00 Intake Total 340 ml 800 ml 150 ml Output Total 400 ml Balance 340 ml 400 ml 150 ml Intake Oral 340 ml 800 ml 150 ml Output Urine Total 400 ml # Voids 4 3 # Bowel Movements 0 Result Diagram: 07/26/1755707/26/17557 Objective Remarks GENERAL: in NAD CARDIOVASCULAR: Irregular rate and irregular rhythm without murmurs, gallops, or rubs. neg edema RESPIRATORY: Mild bilateral rhonchi with poor inspiratory effort. No wheezing or crackles noted. No accessory muscle use. GASTROINTESTINAL: Abdomen soft, non-tender, nondistended. Medications and IVs Current Medications Sodium Chloride (NS Flush) 2 ml UNSCH PRN IVF FLUSH AFTER USING IV ACCESS Last administered on 07/22/17 20:47; Start 07/22/17 at 19:45; Stop 07/22/17 at 22:46 ; Status DC Furosemide (Lasix Inj) 40 mg ONCE ONCE IV PUSH Last administered on 07/22/17 20:47; Start 07/22/17 at 20:30; Stop 07/22/17 at 20:31; Status DC Nitroglycerin (Nitrostat Sl) 0.4 mg ONCE ONCE SL Last administered on 21:28; Start 07/22/17 at 21:15; Stop 07/22/17 at 21:16; Status DC Acetaminophen (Tylenol) 650 mg ONCE ONCE PO Last administered on 07/22/17 21: 49; Start 07/22/17 at 21:45; Stop 07/22/17 at 21:46; Status DC Nitroglycerin (Nitroglycerin 2% Oint) 0.5 inch ONCE ONCE TOPICAL Last administered on 07/22/17 22:14; Start 07/22/17 at 22:00; Stop 07/22/17 at 22:01 ; Status DC Sotalol HCl (Betapace) 80 mg ONCE ONCE PO Last administered on 07/23/17 01: 44; Start 07/22/17 at 22:30; Stop 07/22/17 at 22:41; Status DC Diltiazem HCl (Cardizem Cd) 120 mg ONCE ONCE PO Last administered on 01:44; Start 07/22/17 at 22:30; Stop 07/22/17 at 22:41; Status DC Apixaban (Eliquis) 5 mg ONCE ONCE PO Last administered on 07/23/17 01:44; Start 07/22/17 at 22:30; Stop 07/22/17 at 22:41; Status DC Hydrocortisone (Cortef) 5 mg ONCE ONCE PO Last administered on 07/23/17 01: 44; Start 07/22/17 at 22:30; Stop 07/22/17 at 22:41; Status DC Potassium Chloride (KCl) 20 meq ONCE ONCE PO Last administered on 07/23/17 01:45; Start 07/22/17 at 22:30; Stop 07/22/17 at 22:41; Status DC Sodium Chloride (NS Flush) 2 ml UNSCH PRN IV FLUSH FLUSH AFTER USING IV ACCESS ; Start 07/22/17 at 22:45; Stop 07/22/17 at 22:49; Status DC Sodium Chloride (NS Flush) 2 ml BID IV FLUSH ; Start 07/23/17 at 09:00; Stop 07/23/17 at 09:00; Status DC Naloxone HCl (Narcan Inj) 0.4 mg UNSCH PRN IV PUSH SEE LABEL COMMENTS; Start 07/22/17 at 22:45 Furosemide (Lasix Inj) 40 mg BID@,18 IV PUSH ; Start 07/23/17 at 09:00; Stop 07/23/17 at 09:00; Status DC Sodium Chloride (NS Flush) 2 ml BID IV FLUSH Last administered on 07/26/17 08 :11; Start 07/23/17 at 09:00 Sodium Chloride (NS Flush) 2 ml UNSCH PRN IVF FLUSH AFTER USING IV ACCESS; Start 07/22/17 at 23:00 Dextrose (D50w (Vial) Inj) 50 ml UNSCH PRN IV PUSH HYPOGLYCEMIA-SEE COMMENTS; Start 07/23/17 at 00:45; Stop 07/23/17 at 08:38; Status DC Glucagon (Glucagon Inj) 1 mg UNSCH PRN OTHER HYPOGLYCEMIA-SEE COMMENTS; Start 07/23/17 at 00:45; Stop 07/23/17 at 08:39; Status DC Alprazolam (Xanax) 0.25 mg Q8H PRN PO ANXIETY Last administered on 07/26/17 08:10; Start 07/23/17 at 08:30 Digoxin (Lanoxin) 0.125 mg DAILY PO Last administered on 07/26/17 08:11; Start 07/23/17 at 09:00 Docusate Sodium (Colace) 100 mg DAILY PRN PO Constipation Last administered on 07/24/17 08:42; Start 07/23/17 at 08:30 Hydrocortisone (Cortef) 7.5 mg DAILY@0800 PO Last administered on 07/26/17 08 :10; Start 07/24/17 at 08:00 Hydrocortisone (Cortef) 5 mg AC DINNER PO Last administered on 07/24/17 16: 00; Start 07/23/17 at 16:00 Levothyroxine Sodium (Synthroid) 25 mcg DAILY@0600 PO Last administered on 10:12; Start 07/23/17 at 09:00; Stop 07/23/17 at 10:34; Status DC Meclizine HCl (Antivert) 12.5 mg DAILY PRN PO VERTIGO Last administered on 08:58; Start 07/23/17 at 08:30 Potassium Chloride (KCl) 20 meq BID PO Last administered on 07/26/17 08:11; Start 07/23/17 at 09:00 Sotalol HCl (Betapace) 80 mg BID PO Last administered on 07/26/17 08:11; Start 07/23/17 at 09:00 Torsemide (Demadex) 5 mg DAILY PO Last administered on 07/23/17 10:16; Start 07/23/17 at 09:00; Stop 07/23/17 at 16:14; Status DC Diltiazem HCl (Cardizem Cd) 120 mg DAILY PO Last administered on 07/26/17 08: 10; Start 07/24/17 at 09:00 Dextrose (D50w (Vial) Inj) 50 ml UNSCH PRN IV PUSH HYPOGLYCEMIA-SEE COMMENTS; Start 07/23/17 at 08:30 Glucagon (Glucagon Inj) 1 mg UNSCH PRN OTHER HYPOGLYCEMIA-SEE COMMENTS; Start 07/23/17 at 08:30 Miscellaneous (Pill Splitter) 1 ea UNSCH PRN OTHER SEE LABEL COMMENTS; Start 07/23/17 at 08:45 Ondansetron HCl (Zofran Inj) 4 mg Q8HR PRN IV PUSH nausea/vomiting Last administered on 07/23/17 11:36; Start 07/23/17 at 10:45 Acetaminophen (Tylenol) 500 mg Q4H PRN PO pain 1-10 Last administered on 11:45; Start 07/23/17 at 10:45 Loratadine/ Pseudoephedrine Sulfate (Claritin-D 12 Hr) 1 tab Q12HR PO Last administered on 07/24/17 08:37; Start 07/23/17 at 21:00; Stop 07/24/17 at 10 :25; Status DC Insulin Aspart (NovoLOG SUPPLEMENTAL SCALE) 1 ACHS SLIDING SCALE SQ Last administered on 07/25/17 21:28; Start 07/23/17 at 17:00 Apixaban (Eliquis) 5 mg BID PO Last administered on 07/26/17 08:11; Start at 21:00 Furosemide (Lasix Inj) 20 mg BID@09,18 IV PUSH Last administered on 07/24/17 08:38; Start 07/23/17 at 18:00; Stop 07/24/17 at 15:32; Status DC Vancomycin HCl 1000 mg/Sodium Chloride 250 ml @ 250 mls/hr ONCE ONCE IV ; Start 07/23/17 at 21:00; Stop 07/23/17 at 22:32; Status DC Furosemide (Lasix Inj) 20 mg DAILY IV PUSH Last administered on 07/26/17 08: 11; Start 07/25/17 at 09:00 Doxycycline Hyclate (Vibramycin) 100 mg BID PO Last administered on 07/26/17 08:10; Start 07/25/17 at 13:00 Magnesium Hydroxide (Milk Of Magnesia Liq) 30 ml DAILY PRN PO constipation; Start 07/25/17 at 11:00 Magnesium Hydroxide (Milk Of Magnesia Liq) 30 ml ONCE ONCE PO Last administered on 07/25/17 14:54; Start 07/25/17 at 13:15; Stop 07/25/17 at 13 :16; Status DC Albuterol/ Ipratropium (Duoneb Neb) 1 ampule Q6HR NEB PRN NEB SHORTNESS OF BREATH Last administered on 07/25/17 15:11; Start 07/25/17 at 12:45 A/P Problem List: (1) Pericardial effusion ICD Code: I31.3 - Pericardial effusion (noninflammatory) (2) Atrial fibrillation ICD Code: I48.91 - Unspecified atrial fibrillation Status: Chronic (3) Diabetes ICD Code: E11.9 - Type 2 diabetes mellitus without complications Assessment and Plan 77 y/o female with a history of afib, dm, hypothyroid, anxiety, depression, vertigo presented to the ED with complaints of sob at rest. Dyspnea -Unsure etiology. Maybe due to worsening pericardial effusion versus CHF versus URI. -Chest x-ray suggests CHF exacerbation. BNP 203. Patient on Lasix per cashier and waiter/waitress. Dosage was decreased. -Echo reviewed by [facility] and they stated that her car effusion is stable. -Operations Chief and cardiovascular surgeon following appreciate consult. -Plastics Fab[employer]ator [employer] Assembler following. CT of the chest suggest possible bilateral atelectasis versus pneumonia. -Since patient is URI symptoms or not improving patient was treated empirically doxycycline started yesterday. We'll continue doxycycline since per patient symptoms are improving. Pericardial effusion, echo on 07/14 shows pericardial effusion -Repeat echo on 07/23 showed moderate amount pericardial effusion with no pre- tamponade. -Cardiovascular surgeo reviewed and stated that percardial effusion is stable. Afib, chronic -Continue home medications Sotalol and Cardizem -Operations Chief following. -Patient scheduled for cardioversion IAN. Hypothyroid, chronic -TSH is 0.0005 continues to be suppressed. Patient stated that she takes Synthroid every other day. Recommending discontinuing medication, but patient stated she will follow up with her soldering machine tender. Iatrogenic hyperthyroidism -see medication as above. Adrenal insufficiency -Continue her current regimen. Follow-up with soldering machine tender. DM, chronic -Hold oral hypoglycemic medication. On insulin sliding scale. DVT prophylaxis: SCDs, Eliquis Discussed with patient's nurse. Patient does not want to start any medication unless it is recommended by . Discharge Planning Patient scheduled for cardioversion IAN. Francia Hernandez MD Jul 26, 2017 12:46
--- NOTE | 2017-07-26 14:51 | PD.CARD.PN ---
Subjective Subjective Remarks No CP or SOB, still in a fib, on anticoag w Eliquis Objective Medications Current Medications Medications (Trade) Dose Ordered Sig/Chang Route Start Time Stop Time Status Last Admin (Narcan Inj) 0.4 mg UNSCH PRN IV PUSH 07/22/17 22:45 (NS Flush) 2 ml BID IV FLUSH 07/23/17 09:00 07/26/17 08:11 (NS Flush) 2 ml UNSCH PRN IVF 07/22/17 23:00 (Xanax) 0.25 mg Q8H PRN PO 07/23/17 08:30 07/26/17 08:10 (Lanoxin) 0.125 mg DAILY PO 07/23/17 09:00 07/26/17 08:11 (Colace) 100 mg DAILY PRN PO 07/23/17 08:30 07/24/17 08:42 (Cortef) 7.5 mg DAILY@0800 PO 07/24/17 08:00 07/26/17 08:10 (Cortef) 5 mg AC DINNER PO 07/23/17 16:00 07/24/17 16:00 (Antivert) 12.5 mg DAILY PRN PO 07/23/17 08:30 07/23/17 08:58 (KCl) 20 meq BID PO 07/23/17 09:00 07/26/17 08:11 (Betapace) 80 mg BID PO 07/23/17 09:00 07/26/17 08:11 (Cardizem Cd) 120 mg DAILY PO 07/24/17 09:00 07/26/17 08:10 (D50w (Vial) Inj) 50 ml UNSCH PRN IV PUSH 07/23/17 08:30 (Glucagon Inj) 1 mg UNSCH PRN OTHER 07/23/17 08:30 (Pill Splitter) 1 ea UNSCH PRN OTHER 07/23/17 08:45 (Zofran Inj) 4 mg Q8HR PRN IV PUSH 07/23/17 10:45 07/23/17 11:36 (Tylenol) 500 mg Q4H PRN PO 07/23/17 10:45 07/26/17 11:45 (NovoLOG SUPPLEMENTAL SCALE) 1 ACHS SLIDING SCALE SQ 07/23/17 17:00 07/25/17 21:28 (Eliquis) 5 mg BID PO 07/23/17 21:00 07/26/17 08:11 (Lasix Inj) 20 mg DAILY IV PUSH 07/25/17 09:00 07/26/17 08:11 (Vibramycin) 100 mg BID PO 07/25/17 13:00 07/26/17 08:10 (Milk Of Magnesia Liq) 30 ml DAILY PRN PO 07/25/17 11:00 (Duoneb Neb) 1 ampule Q6HR NEB PRN NEB 07/25/17 12:45 07/25/17 15:11 (Ambien) 5 mg HS PRN PO 07/26/17 13:00 Vital Signs / I&O Vital Signs Date Time Temp Pulse Resp B/P (MAP) Pulse Ox O2 Delivery O2 Flow Rate FiO2 07/26/17 12:22 16 07/26/17 12:00 74 07/26/17 12:00 98.2 84 16 124/72 (89) 92 07/26/17 11:00 86 07/26/17 10:00 88 07/26/17 09:00 100 07/26/17 08:00 98.4 103 18 139/77 (97) 93 07/26/17 08:00 92 07/26/17 07:00 96 07/26/17 06:00 92 07/26/17 05:06 98.4 73 18 128/62 (84) 92 07/26/17 05:00 84 07/26/17 04:00 86 07/26/17 03:00 83 07/26/17 02:00 84 07/26/17 01:00 80 07/26/17 00:09 98.4 79 18 105/57 (73) 93 07/26/17 00:00 92 07/25/17 23:00 83 07/25/17 22:00 88 07/25/17 21:20 98.3 99 18 122/78 (93) 92 07/25/17 21:00 92 07/25/17 20:00 99 07/25/17 19:00 84 07/25/17 18:00 75 07/25/17 17:00 88 07/25/17 16:00 96 07/25/17 15:02 97.6 77 20 114/60 (78) 94 10/12/17 15:00 71 I/O 07/25/17 07/25/17 07/25/17 07/26/17 07/26/17 07/26/17 07:00 15:00 23:00 07:00 15:00 23:00 Intake Total 340 ml 800 ml 150 ml Output Total 400 ml Balance 340 ml 400 ml 150 ml Intake Oral 340 ml 800 ml 150 ml Output Urine Total 400 ml # Voids 4 3 # Bowel Movements 0 Physical Exam GENERAL: In NAD. SKIN: Warm and dry. HEAD: Normocephalic. EYES: No scleral icterus. No injection or drainage. NECK: Supple, trachea midline. No JVD or lymphadenopathy. CARDIOVASCULAR: Irregular rate and rhythm without murmurs, gallops, or rubs. RESPIRATORY: Breath sounds equal bilaterally. No accessory muscle use. GASTROINTESTINAL: Abdomen soft, non-tender, nondistended. MUSCULOSKELETAL: No cyanosis, mild edema. Laboratory Laboratory Tests Test 07/26/17 05:58 White Blood Count 8.8 TH/MM3 Red Blood Count 4.74 MIL/MM3 Hemoglobin 14.5 GM/DL Hematocrit 43.5 % Mean Corpuscular Volume 91.8 FL Mean Corpuscular Hemoglobin 30.7 PG Mean Corpuscular Hemoglobin Concent 33.4 % Red Cell Distribution Width 13.4 % Platelet Count 215 TH/MM3 Mean Platelet Volume 10.5 FL Blood Urea Nitrogen 21 MG/DL Creatinine 0.59 MG/DL Random Glucose 196 MG/DL Calcium Level 9.5 MG/DL Sodium Level 135 MEQ/L Potassium Level 4.0 MEQ/L Chloride Level 101 MEQ/L Carbon Dioxide Level 27.1 MEQ/L Anion Gap 7 MEQ/L Estimat Glomerular Filtration Rate 98 ML/MIN Assessment and Plan Problem List: (1) Atrial fibrillation ICD Codes: I48.91 - Unspecified atrial fibrillation Status: Chronic (2) moderate pericardial effusion Assessment and Plan Continue anticoagulation with Eliquis. Continue rate control. Proceed with IAN and cardioversion today. F/u w Dr. Garvey as outpt. Lon Schaefer MD Jul 26, 2017 14:51
--- NOTE | 2017-07-26 18:37 | HHI.PR ---
Subjective Remarks ALERT NO SOB Objective Vital Signs Date Time Temp Pulse Resp B/P (MAP) Pulse Ox O2 Delivery O2 Flow Rate FiO2 07/26/17 18:00 82 07/26/17 17:00 82 07/26/17 16:00 97.8 80 16 100/60 (73) 96 07/26/17 16:00 71 07/26/17 15:00 68 07/26/17 14:00 70 07/26/17 13:00 74 07/26/17 12:22 16 07/26/17 12:00 74 07/26/17 12:00 98.2 84 16 124/72 (89) 92 07/26/17 11:00 86 07/26/17 10:00 88 07/26/17 09:00 100 07/26/17 08:00 98.4 103 18 139/77 (97) 93 07/26/17 08:00 92 07/26/17 07:00 96 07/26/17 06:00 92 07/26/17 05:06 98.4 73 18 128/62 (84) 92 07/26/17 05:00 84 07/26/17 04:00 86 07/26/17 03:00 83 07/26/17 02:00 84 07/26/17 01:00 80 07/26/17 00:09 98.4 79 18 105/57 (73) 93 07/26/17 00:00 92 07/25/17 23:00 83 07/25/17 22:00 88 07/25/17 21:20 98.3 99 18 122/78 (93) 92 07/25/17 21:00 92 07/25/17 20:00 99 07/25/17 19:00 84 I/O 07/25/17 07/25/17 07/25/17 07/26/17 07/26/17 07/26/17 07:00 15:00 23:00 07:00 15:00 23:00 Intake Total 340 ml 800 ml 150 ml 490 ml Output Total 400 ml Balance 340 ml 400 ml 150 ml 490 ml Intake Oral 340 ml 800 ml 150 ml 240 ml IV Total 250 ml Output Urine Total 400 ml # Voids 4 3 3 # Bowel Movements 0 1 Result Diagram: 07/26/17 0558 07/26/17557 Objective Remarks GENERAL: SKIN: Warm and dry. HEAD: Atraumatic. Normocephalic. EYES: Pupils equal and round. No scleral icterus. No injection or drainage. ENT: No nasal bleeding or discharge. Mucous membranes pink and moist. NECK: Trachea midline. No JVD. CARDIOVASCULAR: Regular rate and rhythm. RESPIRATORY: No accessory muscle use. Clear to auscultation. Breath sounds equal bilaterally. GASTROINTESTINAL: Abdomen soft, non-tender, nondistended. Hepatic and splenic margins not palpable. MUSCULOSKELETAL: Extremities without clubbing, cyanosis, or edema. No obvious deformities. NEUROLOGICAL: Awake and alert. No obvious cranial nerve deficits. Motor grossly within normal limits. Five out of 5 muscle strength in the arms and legs. Normal speech. PSYCHIATRIC: Appropriate mood and affect; insight and judgment normal. Assessment and Plan Assessment and Plan BIBASILAR SMALL EFFUSIONS PERICARDIAL EFFUSION AFB PLAN CHECK PFT INCREASE ACTIVITY F/U CXNatalie Fernandes MD Jul 26, 2017 18:37
[2017-07-26] MEDS: METOPROLOL TARTRATE 25 MG TAB PO SCH (20:21)
[2017-07-26] MEDS: DABIGATRAN ETEXILATE 150 MG CAP PO SCH (20:22)
[2017-07-26] MEDS: ZOLPIDEM TARTRATE 5 MG TAB PO PRN (20:27)
[2017-07-27] VITALS (29 sets, daily range): BP systolic 107–138; BP diastolic 55–70; PULSE 58–140; RESP 17–18; TEMP 97.5–98.6; O2SAT 92–95
[2017-07-27] MEDS: ALPRAZolam 0.25 MG TAB PO PRN ×2 (04:21→20:11)
[2017-07-27] MEDS: ACETAMINOPHEN 500 MG CPLT PO PRN ×2 (04:21→20:11)
[2017-07-27 05:18] LABS: HEMATOCRIT 44.1 % (35.0-46.0); MEAN CELL VOLUME 91.7 FL (80.0-100.0); MEAN CORPUSCULAR HEMOGLOBIN 30.9 PG (27.0-34.0); MEAN CORPUSCULAR HGB CONC 33.7 % (32.0-36.0); PLATELET COUNT 247 TH/MM3 (150-450); RED BLOOD COUNT 4.81 MIL/MM3 (4.00-5.30); RED CELL DISTRIBUTION WIDTH 13.4 % (11.6-17.2); REVIEW FLAG FINAL; WHITE BLOOD COUNT 9.3 TH/MM3 (4.0-11.0)
[2017-07-27 05:35] LABS: BICARBONATE 29.1 MEQ/L (21.0-32.0); POTASSIUM 3.8 MEQ/L (3.5-5.1)
[2017-07-27] MEDS: INSULIN ASPART SUPPLEMENTAL SCALE SQ SCH ×4 (09:03→21:00)
[2017-07-27] MEDS: DILTIAZEM-CD 120 MG CAP ER PO SCH ×2 (09:07→20:12)
[2017-07-27] MEDS: METOPROLOL TARTRATE 25 MG TAB PO SCH (09:07)
[2017-07-27] MEDS: DOXYCYCLINE HYCLATE 100 MG CAP PO SCH ×2 (09:07→20:10)
[2017-07-27] MEDS: HYDROCORTISONE 10 MG TAB PO SCH ×2 (09:07→15:17)
[2017-07-27] MEDS: DOCUSATE SODIUM 100 MG CAP PO SCH (09:08)
[2017-07-27] MEDS: ASPIRIN EC 81 MG TABEC PO SCH (09:08)
[2017-07-27] MEDS: DABIGATRAN ETEXILATE 150 MG CAP PO SCH ×2 (09:08→20:10)
[2017-07-27] MEDS: DIGOXIN 0.125 MG TAB PO SCH (09:09)
[2017-07-27] MEDS: SODIUM CHLORIDE 0.9% FLUSH 10 ML FLUSH IV FLUSH SCH ×2 (09:09→20:12)
[2017-07-27] MEDS: POTASSIUM CHLORIDE 20 MEQ CONTROLLED RELEASE TAB PO SCH ×2 (09:09→20:11)
[2017-07-27] MEDS: FUROSEMIDE 20 MG/2 ML VIAL IV PUSH SCH (09:09)
[2017-07-27] MEDS ORDERED: BENZONATATE 100 MG CAP PO PRN (10:15)
[2017-07-27] MEDS ORDERED: BENZONATATE 100 MG CAP PO ONE (10:15)
--- NOTE | 2017-07-27 11:24 | HHI.PR ---
Subjective Remarks Patient continues to state that she feels awful but cannot explain in detail. Deny any shortness of breathing or cough. She stated that she was told by Dr. Garvey that she is in his stay in the hospital for Saturday. Per nurse patient had a IAN done yesterday but was unable to cardiovert due to clot. Otherwise patient remains afebrile. Objective Vitals Vital Signs Date Time Temp Pulse Resp B/P (MAP) Pulse Ox O2 Delivery O2 Flow Rate FiO2 07/27/17 10:49 77 07/27/17 09:41 140 07/27/17 09:18 104 07/27/17 08:19 82 07/27/17 07:17 Room Air 07/27/17 07:17 97.5 100 17 118/55 (76) 92 07/27/17 07:00 112 07/27/17 06:00 111 07/27/17 05:00 77 07/27/17 04:00 Nasal Cannula 2.00 07/27/17 04:00 98.6 84 18 138/70 (92) 95 07/27/17 04:00 84 07/27/17 03:00 69 07/27/17 02:00 70 07/27/17 01:00 74 07/27/17 00:00 Nasal Cannula 2.00 07/27/17 00:00 80 07/27/17 00:00 98.3 80 18 107/60 (76) 95 07/26/17 23:00 74 07/26/17 22:00 80 07/26/17 21:00 85 07/26/17 20:00 98.1 83 18 112/57 (75) 92 07/26/17 20:00 83 07/26/17 20:00 Nasal Cannula 2.00 07/26/17 18:00 82 07/26/17 17:00 82 07/26/17 16:00 97.8 80 16 100/60 (73) 96 07/26/17 16:00 71 07/26/17 15:00 68 07/26/17 14:00 70 07/26/17 13:00 74 07/26/17 12:22 16 07/26/17 12:00 74 07/26/17 12:00 98.2 84 16 124/72 (89) 92 I/O 10/13/17 07/26/17 07/26/17 07/27/17 07/27/17 07/27/17 06:59 14:59 22:59 06:59 14:59 22:59 Intake Total 150 ml 490 ml 480 ml Balance 150 ml 490 ml 480 ml Intake Oral 150 ml 240 ml 480 ml IV Total 250 ml # Voids 3 3 3 # Bowel Movements 1 0 Result Diagram: 07/27/1742607/27/17426 Objective Remarks GENERAL: in NAD CARDIOVASCULAR: Irregular rate and irregular rhythm without murmurs, gallops, or rubs. neg edema RESPIRATORY: Mild bilateral rhonchi with poor inspiratory effort. No wheezing or crackles noted. No accessory muscle use. GASTROINTESTINAL: Abdomen soft, non-tender, nondistended. Medications and IVs Current Medications Sodium Chloride (NS Flush) 2 ml UNSCH PRN IVF FLUSH AFTER USING IV ACCESS Last administered on 07/22/17 20:47; Start 07/22/17 at 19:45; Stop 07/22/17 at 22:46 ; Status DC Furosemide (Lasix Inj) 40 mg ONCE ONCE IV PUSH Last administered on 07/22/17 20:47; Start 07/22/17 at 20:30; Stop 07/22/17 at 20:31; Status DC Nitroglycerin (Nitrostat Sl) 0.4 mg ONCE ONCE SL Last administered on 21:28; Start 07/22/17 at 21:15; Stop 07/22/17 at 21:16; Status DC Acetaminophen (Tylenol) 650 mg ONCE ONCE PO Last administered on 07/22/17 21: 49; Start 07/22/17 at 21:45; Stop 07/22/17 at 21:46; Status DC Nitroglycerin (Nitroglycerin 2% Oint) 0.5 inch ONCE ONCE TOPICAL Last administered on 07/22/17 22:14; Start 07/22/17 at 22:00; Stop 07/22/17 at 22:01 ; Status DC Sotalol HCl (Betapace) 80 mg ONCE ONCE PO Last administered on 07/23/17 01: 44; Start 07/22/17 at 22:30; Stop 07/22/17 at 22:41; Status DC Diltiazem HCl (Cardizem Cd) 120 mg ONCE ONCE PO Last administered on 01:44; Start 07/22/17 at 22:30; Stop 07/22/17 at 22:41; Status DC Apixaban (Eliquis) 5 mg ONCE ONCE PO Last administered on 07/23/17 01:44; Start 07/22/17 at 22:30; Stop 07/22/17 at 22:41; Status DC Hydrocortisone (Cortef) 5 mg ONCE ONCE PO Last administered on 07/23/17 01: 44; Start 07/22/17 at 22:30; Stop 07/22/17 at 22:41; Status DC Potassium Chloride (KCl) 20 meq ONCE ONCE PO Last administered on 07/23/17 01:45; Start 07/22/17 at 22:30; Stop 07/22/17 at 22:41; Status DC Sodium Chloride (NS Flush) 2 ml UNSCH PRN IV FLUSH FLUSH AFTER USING IV ACCESS ; Start 07/22/17 at 22:45; Stop 07/22/17 at 22:49; Status DC Sodium Chloride (NS Flush) 2 ml BID IV FLUSH ; Start 07/23/17 at 09:00; Stop 07/23/17 at 09:00; Status DC Naloxone HCl (Narcan Inj) 0.4 mg UNSCH PRN IV PUSH SEE LABEL COMMENTS; Start 07/22/17 at 22:45 Furosemide (Lasix Inj) 40 mg BID@09,18 IV PUSH ; Start 07/23/17 at 09:00; Stop 07/23/17 at 09:00; Status DC Sodium Chloride (NS Flush) 2 ml BID IV FLUSH Last administered on 07/27/17 09 :09; Start 07/23/17 at 09:00 Sodium Chloride (NS Flush) 2 ml UNSCH PRN IVF FLUSH AFTER USING IV ACCESS; Start 07/22/17 at 23:00 Dextrose (D50w (Vial) Inj) 50 ml UNSCH PRN IV PUSH HYPOGLYCEMIA-SEE COMMENTS; Start 07/23/17 at 00:45; Stop 07/23/17 at 08:38; Status DC Glucagon (Glucagon Inj) 1 mg UNSCH PRN OTHER HYPOGLYCEMIA-SEE COMMENTS; Start 07/23/17 at 00:45; Stop 07/23/17 at 08:39; Status DC Alprazolam (Xanax) 0.25 mg Q8H PRN PO ANXIETY Last administered on 07/27/17 04:21; Start 07/23/17 at 08:30 Digoxin (Lanoxin) 0.125 mg DAILY PO Last administered on 07/27/17 09:09; Start 07/23/17 at 09:00 Docusate Sodium (Colace) 100 mg DAILY PRN PO Constipation Last administered on 07/24/17 08:42; Start 07/23/17 at 08:30; Stop 07/26/17 at 15:39; Status DC Hydrocortisone (Cortef) 7.5 mg DAILY@0800 PO Last administered on 07/27/17 09 :07; Start 07/24/17 at 08:00 Hydrocortisone (Cortef) 5 mg AC DINNER PO Last administered on 07/26/17 15: 14; Start 07/23/17 at 16:00 Levothyroxine Sodium (Synthroid) 25 mcg DAILY@0600 PO Last administered on 10:12; Start 07/23/17 at 09:00; Stop 07/23/17 at 10:34; Status DC Meclizine HCl (Antivert) 12.5 mg DAILY PRN PO VERTIGO Last administered on 08:58; Start 07/23/17 at 08:30 Potassium Chloride (KCl) 20 meq BID PO Last administered on 07/27/17 09:09; Start 07/23/17 at 09:00 Sotalol HCl (Betapace) 80 mg BID PO Last administered on 07/26/17 08:11; Start 07/23/17 at 09:00; Stop 07/26/17 at 17:08; Status DC Torsemide (Demadex) 5 mg DAILY PO Last administered on 07/23/17 10:16; Start 07/23/17 at 09:00; Stop 07/23/17 at 16:14; Status DC Diltiazem HCl (Cardizem Cd) 120 mg DAILY PO Last administered on 07/27/17 09: 07; Start 07/24/17 at 09:00; Stop 07/27/17 at 11:16; Status DC Dextrose (D50w (Vial) Inj) 50 ml UNSCH PRN IV PUSH HYPOGLYCEMIA-SEE COMMENTS; Start 07/23/17 at 08:30 Glucagon (Glucagon Inj) 1 mg UNSCH PRN OTHER HYPOGLYCEMIA-SEE COMMENTS; Start 07/23/17 at 08:30 Miscellaneous (Pill Splitter) 1 ea UNSCH PRN OTHER SEE LABEL COMMENTS; Start 07/23/17 at 08:45 Ondansetron HCl (Zofran Inj) 4 mg Q8HR PRN IV PUSH nausea/vomiting Last administered on 07/23/17 11:36; Start 07/23/17 at 10:45 Acetaminophen (Tylenol) 500 mg Q4H PRN PO pain 1-10 Last administered on 04:21; Start 07/23/17 at 10:45 Loratadine/ Pseudoephedrine Sulfate (Claritin-D 12 Hr) 1 tab Q12HR PO Last administered on 07/24/17 08:37; Start 07/23/17 at 21:00; Stop 07/24/17 at 10 :25; Status DC Insulin Aspart (NovoLOG SUPPLEMENTAL SCALE) 1 ACHS SLIDING SCALE SQ Last administered on 07/27/17 09:03; Start 07/23/17 at 17:00 Apixaban (Eliquis) 5 mg BID PO Last administered on 07/26/17 08:11; Start at 21:00; Stop 07/26/17 at 17:08; Status DC Furosemide (Lasix Inj) 20 mg BID@09,18 IV PUSH Last administered on 07/24/17 08:38; Start 07/23/17 at 18:00; Stop 07/24/17 at 15:32; Status DC Vancomycin HCl 1000 mg/Sodium Chloride 250 ml @ 250 mls/hr ONCE ONCE IV ; Start 07/23/17 at 21:00; Stop 07/23/17 at 22:32; Status DC Furosemide (Lasix Inj) 20 mg DAILY IV PUSH Last administered on 07/27/17 09: 09; Start 07/25/17 at 09:00 Doxycycline Hyclate (Vibramycin) 100 mg BID PO Last administered on 07/27/17 09:07; Start 07/25/17 at 13:00 Magnesium Hydroxide (Milk Of Magnesia Liq) 30 ml DAILY PRN PO constipation; Start 07/25/17 at 11:00 Magnesium Hydroxide (Milk Of Magnesia Liq) 30 ml ONCE ONCE PO Last administered on 07/25/17 14:54; Start 07/25/17 at 13:15; Stop 07/25/17 at 13 :16; Status DC Albuterol/ Ipratropium (Duoneb Neb) 1 ampule Q6HR NEB PRN NEB SHORTNESS OF BREATH Last administered on 07/25/17 15:11; Start 07/25/17 at 12:45 Zolpidem Tartrate (Ambien) 5 mg HS PRN PO insomnia Last administered on 20:27; Start 07/26/17 at 13:00 Aspirin (Ecotrin Ec) 81 mg DAILY PO Last administered on 07/27/17 09:08; Start 07/27/17 at 09:00 Docusate Sodium (Colace) 100 mg DAILY PO Last administered on 07/27/17 09:08 ; Start 07/27/17 at 09:00 Dabigatran (Pradaxa) 150 mg BID PO Last administered on 07/27/17 09:08; Start 07/26/17 at 21:00 Metoprolol Tartrate (Lopressor) 25 mg Q12HR PO Last administered on 07/27/17 09:07; Start 07/26/17 at 21:00 Benzonatate (Tessalon) 100 mg TID PRN PO cough; Start 07/27/17 at 10:15 Benzonatate (Tessalon) 100 mg ONCE ONCE PO Last administered on 07/27/17 10: 53; Start 07/27/17 at 10:15; Stop 07/27/17 at 10:16; Status DC Diltiazem HCl (Cardizem Cd) 120 mg BID PO ; Start 07/27/17 at 21:00 Diltiazem HCl (Cardizem Cd) 120 mg ONCE ONCE PO ; Start 07/27/17 at 11:30; Stop 07/27/17 at 11:31 A/P Problem List: (1) Pericardial effusion ICD Code: I31.3 - Pericardial effusion (noninflammatory) (2) Atrial fibrillation ICD Code: I48.91 - Unspecified atrial fibrillation Status: Chronic (3) Diabetes ICD Code: E11.9 - Type 2 diabetes mellitus without complications Assessment and Plan 77 y/o female with a history of afib, dm, hypothyroid, anxiety, depression, vertigo presented to the ED with complaints of sob at rest. Dyspnea -Unsure etiology. Maybe due to worsening pericardial effusion versus CHF versus URI. -Chest x-ray suggests CHF exacerbation. BNP 203. Patient on Lasix per antique automobiles repairer. Dosage was decreased. -Echo reviewed by [facility] and they stated that her car effusion is stable. -Boat Laborer and cardiovascular surgeon following appreciate consult. -Provisioning Specialist following. CT of the chest suggest possible bilateral atelectasis versus pneumonia. -Since patient is URI symptoms or not improving patient was treated empirically doxycycline started yesterday. We'll continue doxycycline since per patient symptoms are improving. Pericardial effusion, echo on 07/14 shows pericardial effusion -Repeat echo on 07/23 showed moderate amount pericardial effusion with no pre- tamponade. -Cardiovascular surgeon reviewed and stated that percardial effusion is stable. Afib, chronic -Continue home medications Sotalol and Cardizem -Boat Laborer following. -Unable to cardiovert due to clots. Patient was put on Pradaxa. Eliquis was discontinued. Hypothyroid, chronic -TSH is 0.0005 continues to be suppressed. Patient stated that she takes Synthroid every other day. Recommending discontinuing medication, but patient stated she will follow up with her ethylbenzene cracking supervisor. Iatrogenic hyperthyroidism -see medication as above. Adrenal insufficiency -Continue her current regimen. Follow-up with ethylbenzene cracking supervisor. DM, chronic -Hold oral hypoglycemic medication. On insulin sliding scale. DVT prophylaxis: SCDs, Pradaxa. Discharge Planning Patient medically stable for discharge pending antique automobiles repairer's clearance. Francia Hernandez MD Jul 27, 2017 11:24
[2017-07-27] MEDS ORDERED: DILTIAZEM-CD 120 MG CAP ER PO ONE (11:30)
[2017-07-27] MEDS: RESP: ALBUTEROL 2.5 MG/IPRATROPIUM 0.5 MG NEB (PRN) NEB (15:21)
[2017-07-27] MEDS: ZOLPIDEM TARTRATE 5 MG TAB PO PRN (20:10)
[2017-07-27] MEDS: METOPROLOL TARTRATE 50 MG TAB PO SCH (20:11)
[2017-07-28] VITALS (25 sets, daily range): BP systolic 102–125; BP diastolic 53–64; PULSE 56–93; RESP 17–20; TEMP 97.3–98.4; O2SAT 93–97
[2017-07-28] MEDS: ACETAMINOPHEN 500 MG CPLT PO PRN ×2 (04:12→21:37)
[2017-07-28] MEDS: ALPRAZolam 0.25 MG TAB PO PRN ×2 (04:12→21:37)
[2017-07-28 06:22] LABS: HEMATOCRIT 43.1 % (35.0-46.0); MEAN CELL VOLUME 91.7 FL (80.0-100.0); MEAN CORPUSCULAR HEMOGLOBIN 30.2 PG (27.0-34.0); PLATELET COUNT 246 TH/MM3 (150-450); RED CELL DISTRIBUTION WIDTH 13.6 % (11.6-17.2); REVIEW FLAG FINAL; WHITE BLOOD COUNT 7.6 TH/MM3 (4.0-11.0)
[2017-07-28 06:51] LABS: ANION GAP 8 MEQ/L (5-15); BICARBONATE 28.8 MEQ/L (21.0-32.0); BLOOD UREA NITROGEN 27 MG/DL (7-18); CHLORIDE 101 MEQ/L (98-107); GLOMERULAR FILTRATION RATE 81 ML/MIN (>89); MAGNESIUM 2.1 MG/DL (1.5-2.5); POTASSIUM 3.8 MEQ/L (3.5-5.1); SODIUM (NA) 138 MEQ/L (136-145)
[2017-07-28 07:01] LABS: FREE T4 2.19 NG/DL (0.76-1.46)
[2017-07-28] MEDS: INSULIN ASPART SUPPLEMENTAL SCALE SQ SCH ×4 (08:30→21:00)
[2017-07-28] MEDS: DIGOXIN 0.125 MG TAB PO SCH (08:31)
[2017-07-28] MEDS: POTASSIUM CHLORIDE 20 MEQ CONTROLLED RELEASE TAB PO SCH ×2 (08:31→21:37)
[2017-07-28] MEDS: METOPROLOL TARTRATE 50 MG TAB PO SCH (08:31)
[2017-07-28] MEDS: ASPIRIN EC 81 MG TABEC PO SCH (08:31)
[2017-07-28] MEDS: DABIGATRAN ETEXILATE 150 MG CAP PO SCH ×2 (08:31→21:34)
[2017-07-28] MEDS: DOXYCYCLINE HYCLATE 100 MG CAP PO SCH ×2 (08:31→21:38)
[2017-07-28] MEDS: DOCUSATE SODIUM 100 MG CAP PO SCH (08:31)
[2017-07-28] MEDS: DILTIAZEM-CD 120 MG CAP ER PO SCH ×2 (08:31→21:34)
[2017-07-28] MEDS: FUROSEMIDE 20 MG/2 ML VIAL IV PUSH SCH (08:32)
[2017-07-28] MEDS: HYDROCORTISONE 10 MG TAB PO SCH ×2 (08:32→16:19)
[2017-07-28] MEDS: SODIUM CHLORIDE 0.9% FLUSH 10 ML FLUSH IV FLUSH SCH ×2 (08:33→21:38)
--- NOTE | 2017-07-28 10:25 | HHI.PR ---
Subjective Remarks Patient found sitting at her bedside eating her breakfast. She had no complaints. Deny any shortness of breathing, chest pain, palpitation, lightheadedness dizziness. Heart rate controlled. Objective Vitals Vital Signs Date Time Temp Pulse Resp B/P (MAP) Pulse Ox O2 Delivery O2 Flow Rate FiO2 07/28/17 10:01 71 07/28/17 09:45 62 07/28/17 08:27 85 07/28/17 07:24 97.7 91 17 108/57 (74) 95 07/28/17 07:24 95 Nasal Cannula 2.00 07/28/17 07:00 65 07/28/17 05:00 66 07/28/17 04:00 Room Air 07/28/17 04:00 98.4 73 18 102/56 (71) 93 07/28/17 04:00 73 07/28/17 03:00 60 07/28/17 02:00 64 07/28/17 01:00 60 07/28/17 00:00 Room Air 07/28/17 00:00 98.1 74 18 107/64 (78) 95 07/28/17 00:00 74 07/27/17 23:00 60 07/27/17 22:00 78 07/27/17 21:33 92 21 07/27/17 21:00 100 07/27/17 20:00 98.0 93 18 114/58 (76) 95 07/27/17 20:00 Room Air 07/27/17 20:00 93 07/27/17 18:11 90 07/27/17 17:03 85 07/27/17 16:07 94 07/27/17 15:36 86 07/27/17 15:21 92 21 07/27/17 15:12 97.5 87 17 117/59 (78) 92 07/27/17 14:06 103 07/27/17 13:25 94 07/27/17 12:25 94 07/27/17 11:24 97.5 81 17 118/55 (76) 93 07/27/17 11:00 83 07/27/17 10:49 77 I/O 07/27/17 07/27/17 07/27/17 07/28/17 07/28/17 07/28/17 07:00 15:00 23:00 07:00 15:00 23:00 Intake Total 480 ml 660 ml 480 ml Balance 480 ml 660 ml 480 ml Intake Oral 480 ml 660 ml 480 ml # Voids 3 4 3 # Bowel Movements 0 1 0 Result Diagram: 07/28/1760407/28/17604 Objective Remarks GENERAL: in NAD CARDIOVASCULAR: Irregular rate and irregular rhythm without murmurs, gallops, or rubs. neg edema RESPIRATORY: Mild bilateral rhonchi with poor inspiratory effort. No wheezing or crackles noted. No accessory muscle use. GASTROINTESTINAL: Abdomen soft, non-tender, nondistended. Medications and IVs Current Medications Sodium Chloride (NS Flush) 2 ml UNSCH PRN IVF FLUSH AFTER USING IV ACCESS Last administered on 07/22/17 20:47; Start 07/22/17 at 19:45; Stop 07/22/17 at 22:46 ; Status DC Furosemide (Lasix Inj) 40 mg ONCE ONCE IV PUSH Last administered on 07/22/17 20:47; Start 07/22/17 at 20:30; Stop 07/22/17 at 20:31; Status DC Nitroglycerin (Nitrostat Sl) 0.4 mg ONCE ONCE SL Last administered on 21:28; Start 07/22/17 at 21:15; Stop 07/22/17 at 21:16; Status DC Acetaminophen (Tylenol) 650 mg ONCE ONCE PO Last administered on 07/22/17 21: 49; Start 07/22/17 at 21:45; Stop 07/22/17 at 21:46; Status DC Nitroglycerin (Nitroglycerin 2% Oint) 0.5 inch ONCE ONCE TOPICAL Last administered on 07/22/17 22:14; Start 07/22/17 at 22:00; Stop 07/22/17 at 22:01 ; Status DC Sotalol HCl (Betapace) 80 mg ONCE ONCE PO Last administered on 07/23/17 01: 44; Start 07/22/17 at 22:30; Stop 07/22/17 at 22:41; Status DC Diltiazem HCl (Cardizem Cd) 120 mg ONCE ONCE PO Last administered on 01:44; Start 07/22/17 at 22:30; Stop 07/22/17 at 22:41; Status DC Apixaban (Eliquis) 5 mg ONCE ONCE PO Last administered on 07/23/17 01:44; Start 07/22/17 at 22:30; Stop 07/22/17 at 22:41; Status DC Hydrocortisone (Cortef) 5 mg ONCE ONCE PO Last administered on 07/23/17 01: 44; Start 07/22/17 at 22:30; Stop 07/22/17 at 22:41; Status DC Potassium Chloride (KCl) 20 meq ONCE ONCE PO Last administered on 07/23/17 01:45; Start 07/22/17 at 22:30; Stop 07/22/17 at 22:41; Status DC Sodium Chloride (NS Flush) 2 ml UNSCH PRN IV FLUSH FLUSH AFTER USING IV ACCESS ; Start 07/22/17 at 22:45; Stop 07/22/17 at 22:49; Status DC Sodium Chloride (NS Flush) 2 ml BID IV FLUSH ; Start 07/23/17 at 09:00; Stop 07/23/17 at 09:00; Status DC Naloxone HCl (Narcan Inj) 0.4 mg UNSCH PRN IV PUSH SEE LABEL COMMENTS; Start 07/22/17 at 22:45 Furosemide (Lasix Inj) 40 mg BID@09,18 IV PUSH ; Start 07/23/17 at 09:00; Stop 07/23/17 at 09:00; Status DC Sodium Chloride (NS Flush) 2 ml BID IV FLUSH Last administered on 07/28/17 08 :33; Start 07/23/17 at 09:00 Sodium Chloride (NS Flush) 2 ml UNSCH PRN IVF FLUSH AFTER USING IV ACCESS; Start 07/22/17 at 23:00 Dextrose (D50w (Vial) Inj) 50 ml UNSCH PRN IV PUSH HYPOGLYCEMIA-SEE COMMENTS; Start 07/23/17 at 00:45; Stop 07/23/17 at 08:38; Status DC Glucagon (Glucagon Inj) 1 mg UNSCH PRN OTHER HYPOGLYCEMIA-SEE COMMENTS; Start 07/23/17 at 00:45; Stop 07/23/17 at 08:39; Status DC Alprazolam (Xanax) 0.25 mg Q8H PRN PO ANXIETY Last administered on 07/28/17 04:12; Start 07/23/17 at 08:30 Digoxin (Lanoxin) 0.125 mg DAILY PO Last administered on 07/28/17 08:31; Start 07/23/17 at 09:00 Docusate Sodium (Colace) 100 mg DAILY PRN PO Constipation Last administered on 07/24/17 08:42; Start 07/23/17 at 08:30; Stop 07/26/17 at 15:39; Status DC Hydrocortisone (Cortef) 7.5 mg DAILY@0800 PO Last administered on 07/28/17 08 :32; Start 07/24/17 at 08:00 Hydrocortisone (Cortef) 5 mg AC DINNER PO Last administered on 07/27/17 15: 17; Start 07/23/17 at 16:00 Levothyroxine Sodium (Synthroid) 25 mcg DAILY@0600 PO Last administered on 10:12; Start 07/23/17 at 09:00; Stop 07/23/17 at 10:34; Status DC Meclizine HCl (Antivert) 12.5 mg DAILY PRN PO VERTIGO Last administered on 08:58; Start 07/23/17 at 08:30 Potassium Chloride (KCl) 20 meq BID PO Last administered on 07/28/17 08:31; Start 07/23/17 at 09:00 Sotalol HCl (Betapace) 80 mg BID PO Last administered on 07/26/17 08:11; Start 07/23/17 at 09:00; Stop 07/26/17 at 17:08; Status DC Torsemide (Demadex) 5 mg DAILY PO Last administered on 07/23/17 10:16; Start 07/23/17 at 09:00; Stop 07/23/17 at 16:14; Status DC Diltiazem HCl (Cardizem Cd) 120 mg DAILY PO Last administered on 07/27/17 09: 07; Start 07/24/17 at 09:00; Stop 07/27/17 at 11:16; Status DC Dextrose (D50w (Vial) Inj) 50 ml UNSCH PRN IV PUSH HYPOGLYCEMIA-SEE COMMENTS; Start 07/23/17 at 08:30 Glucagon (Glucagon Inj) 1 mg UNSCH PRN OTHER HYPOGLYCEMIA-SEE COMMENTS; Start 07/23/17 at 08:30 Miscellaneous (Pill Splitter) 1 ea UNSCH PRN OTHER SEE LABEL COMMENTS; Start 07/23/17 at 08:45 Ondansetron HCl (Zofran Inj) 4 mg Q8HR PRN IV PUSH nausea/vomiting Last administered on 07/23/17 11:36; Start 07/23/17 at 10:45 Acetaminophen (Tylenol) 500 mg Q4H PRN PO pain 1-10 Last administered on 04:12; Start 07/23/17 at 10:45 Loratadine/ Pseudoephedrine Sulfate (Claritin-D 12 Hr) 1 tab Q12HR PO Last administered on 07/24/17 08:37; Start 07/23/17 at 21:00; Stop 07/24/17 at 10 :25; Status DC Insulin Aspart (NovoLOG SUPPLEMENTAL SCALE) 1 ACHS SLIDING SCALE SQ Last administered on 07/28/17 08:30; Start 07/23/17 at 17:00 Apixaban (Eliquis) 5 mg BID PO Last administered on 07/26/17 08:11; Start at 21:00; Stop 07/26/17 at 17:08; Status DC Furosemide (Lasix Inj) 20 mg BID@09,18 IV PUSH Last administered on 07/24/17 08:38; Start 07/23/17 at 18:00; Stop 07/24/17 at 15:32; Status DC Vancomycin HCl 1000 mg/Sodium Chloride 250 ml @ 250 mls/hr ONCE ONCE IV ; Start 07/23/17 at 21:00; Stop 07/23/17 at 22:32; Status DC Furosemide (Lasix Inj) 20 mg DAILY IV PUSH Last administered on 07/28/17 08: 32; Start 07/25/17 at 09:00 Doxycycline Hyclate (Vibramycin) 100 mg BID PO Last administered on 07/28/17 08:31; Start 07/25/17 at 13:00 Magnesium Hydroxide (Milk Of Magnesia Liq) 30 ml DAILY PRN PO constipation; Start 07/25/17 at 11:00 Magnesium Hydroxide (Milk Of Magnesia Liq) 30 ml ONCE ONCE PO Last administered on 07/25/17 14:54; Start 07/25/17 at 13:15; Stop 07/25/17 at 13 :16; Status DC Albuterol/ Ipratropium (Duoneb Neb) 1 ampule Q6HR NEB PRN NEB SHORTNESS OF BREATH Last administered on 07/27/17 15:21; Start 07/25/17 at 12:45 Zolpidem Tartrate (Ambien) 5 mg HS PRN PO insomnia Last administered on 20:10; Start 07/26/17 at 13:00 Aspirin (Ecotrin Ec) 81 mg DAILY PO Last administered on 07/28/17 08:31; Start 07/27/17 at 09:00 Docusate Sodium (Colace) 100 mg DAILY PO Last administered on 07/28/17 08:31 ; Start 07/27/17 at 09:00 Dabigatran (Pradaxa) 150 mg BID PO Last administered on 07/28/17 08:31; Start 07/26/17 at 21:00 Metoprolol Tartrate (Lopressor) 25 mg Q12HR PO Last administered on 07/27/17 09:07; Start 07/26/17 at 21:00; Stop 07/27/17 at 17:14; Status DC Benzonatate (Tessalon) 100 mg TID PRN PO cough; Start 07/27/17 at 10:15; Stop 07/27/17 at 14:35; Status DC Benzonatate (Tessalon) 100 mg ONCE ONCE PO Last administered on 07/27/17 10: 53; Start 07/27/17 at 10:15; Stop 07/27/17 at 10:16; Status DC Diltiazem HCl (Cardizem Cd) 120 mg BID PO Last administered on 07/28/17 08:31 ; Start 07/27/17 at 21:00 Diltiazem HCl (Cardizem Cd) 120 mg ONCE ONCE PO Last administered on 11:28; Start 07/27/17 at 11:30; Stop 07/27/17 at 11:31; Status DC Metoprolol Tartrate (Lopressor) 50 mg Q12HR PO Last administered on 07/28/17 08:31; Start 07/27/17 at 21:00 A/P Problem List: (1) Pericardial effusion ICD Code: I31.3 - Pericardial effusion (noninflammatory) (2) Atrial fibrillation ICD Code: I48.91 - Unspecified atrial fibrillation Status: Chronic (3) Diabetes ICD Code: E11.9 - Type 2 diabetes mellitus without complications Assessment and Plan 77 y/o female with a history of afib, dm, hypothyroid, anxiety, depression, vertigo presented to the ED with complaints of sob at rest. Dyspnea -Unsure etiology. Maybe due to worsening pericardial effusion versus CHF versus URI. -Chest x-ray suggests CHF exacerbation. BNP 203. Patient on Lasix per melt superintendant. Dosage was decreased. -Echo reviewed by [facility] and they stated that her car effusion is stable. -Oil Burner Repairer and cardiovascular surgeon following appreciate consult. -Plant Electrical Engineer following. CT of the chest suggest possible bilateral atelectasis versus pneumonia. -Since patient is URI symptoms or not improving patient was treated empirically doxycycline started yesterday. continue doxycycline since per patient symptoms are improving. Pericardial effusion, echo on 07/14 shows pericardial effusion -Repeat echo on 07/23 showed moderate amount pericardial effusion with no pre- tamponade. -Cardiovascular surgeon reviewed and stated that percardial effusion is stable. Afib, chronic -Continue home medications Sotalol and Cardizem -Diltiazem and digoxin was added to her regimen. Heart rate better controlled. -Oil Burner Repairer following. -Unable to cardiovert due to clots. Patient was put on Pradaxa. Eliquis was discontinued. Hypothyroid, chronic -TSH is 0.0005 continues to be suppressed. Patient stated that she takes Synthroid every other day. Recommending discontinuing medication, but patient stated she will follow up with her mechanical research engineer. Iatrogenic hyperthyroidism -see medication as above. Adrenal insufficiency -Continue her current regimen. Follow-up with mechanical research engineer. DM, chronic -Hold oral hypoglycemic medication. On insulin sliding scale. DVT prophylaxis: SCDs, Pradaxa. Discharge Planning Patient medically stable for discharge pending melt superintendant's clearance. Francia Hernandez MD Jul 28, 2017 10:25
[2017-07-28] MEDS: ONDANSETRON HCL 4 MG/2 ML VIAL IV PUSH PRN (15:50)
[2017-07-28] MEDS: METOPROLOL TARTRATE 25 MG TAB PO SCH (21:38)
[2017-07-28] MEDS: ZOLPIDEM TARTRATE 5 MG TAB PO PRN (21:38)
[2017-07-29] VITALS (24 sets, daily range): BP systolic 97–137; BP diastolic 57–78; PULSE 66–110; RESP 18–22; TEMP 97.9–98.6; O2SAT 92–95
[2017-07-29] MEDS: ACETAMINOPHEN 500 MG CPLT PO PRN ×3 (03:58→22:21)
[2017-07-29] MEDS: INSULIN ASPART SUPPLEMENTAL SCALE SQ SCH ×4 (08:00→21:11)
[2017-07-29] MEDS: HYDROCORTISONE 10 MG TAB PO SCH ×2 (09:19→17:10)
[2017-07-29] MEDS: ASPIRIN EC 81 MG TABEC PO SCH (09:19)
[2017-07-29] MEDS: DILTIAZEM-CD 120 MG CAP ER PO SCH ×2 (09:19→21:10)
[2017-07-29] MEDS: DIGOXIN 0.125 MG TAB PO SCH (09:20)
[2017-07-29] MEDS: DOXYCYCLINE HYCLATE 100 MG CAP PO SCH ×2 (09:20→21:00)
[2017-07-29] MEDS: METOPROLOL TARTRATE 25 MG TAB PO SCH ×2 (09:20→21:10)
[2017-07-29] MEDS: POTASSIUM CHLORIDE 20 MEQ CONTROLLED RELEASE TAB PO SCH ×2 (09:20→21:10)
[2017-07-29] MEDS: DABIGATRAN ETEXILATE 150 MG CAP PO SCH ×2 (09:20→21:10)
[2017-07-29] MEDS: FUROSEMIDE 20 MG/2 ML VIAL IV PUSH SCH (09:21)
[2017-07-29] MEDS: SODIUM CHLORIDE 0.9% FLUSH 10 ML FLUSH IV FLUSH SCH ×2 (09:21→21:11)
[2017-07-29] MEDS: DOCUSATE SODIUM 100 MG CAP PO SCH (09:21)
--- NOTE | 2017-07-29 12:17 | HHI.PR ---
Subjective Remarks Follow-up for SOB and atrial fibrillation Patient complaining about lesions on her lips. She is asking for ointment. She stated that she usually is department with improvement. Shortness of breathing has improved. Patient stated that Dr. Larson told committed to a procedure today. Otherwise she has no complaints for me. Objective Vitals Vital Signs Date Time Temp Pulse Resp B/P (MAP) Pulse Ox O2 Delivery O2 Flow Rate FiO2 07/29/17 11:00 74 07/29/17 11:00 98.0 71 20 105/60 (75) 95 07/29/17 10:00 110 07/29/17 09:00 100 07/29/17 08:00 88 07/29/17 08:00 92 Room Air 07/29/17 08:00 98.0 90 20 116/57 (76) 92 07/29/17 07:00 76 07/29/17 06:00 94 07/29/17 05:00 88 07/29/17 04:00 90 07/29/17 04:00 Room Air 07/29/17 04:00 98.1 90 18 125/65 (85) 92 07/29/17 03:00 80 07/29/17 02:00 74 07/29/17 01:00 78 07/29/17 00:00 75 07/29/17 00:00 Nasal Cannula 2.00 07/29/17 00:00 98.3 75 18 113/64 (80) 93 07/28/17 23:00 84 07/28/17 22:00 87 07/28/17 21:00 89 07/28/17 20:00 92 07/28/17 20:00 Room Air 07/28/17 20:00 97.9 92 20 111/57 (75) 93 07/28/17 18:11 93 07/28/17 17:42 84 07/28/17 16:10 73 07/28/17 15:44 97.7 68 17 125/54 (77) 93 07/28/17 15:00 61 07/28/17 14:37 67 07/28/17 13:06 72 07/28/17 12:44 21 07/28/17 12:17 56 I/O 07/28/17 07/28/17 07/28/17 07/29/17 07/29/17 07/29/17 06:59 14:59 22:59 06:59 14:59 22:59 Intake Total 480 ml 960 ml 480 ml Balance 480 ml 960 ml 480 ml Intake Oral 480 ml 960 ml 480 ml # Voids 3 3 3 # Bowel Movements 0 1 0 Result Diagram: 07/28/1760407/28/17604 Objective Remarks GENERAL: in NAD Lips: ulcerating lesion on lips and mucous of lips CARDIOVASCULAR: Irregular rate and irregular rhythm without murmurs, gallops, or rubs. neg edema RESPIRATORY: Mild bilateral rhonchi with poor inspiratory effort. No wheezing or crackles noted. No accessory muscle use. GASTROINTESTINAL: Abdomen soft, non-tender, nondistended. Medications and IVs Current Medications Sodium Chloride (NS Flush) 2 ml UNSCH PRN IVF FLUSH AFTER USING IV ACCESS Last administered on 07/22/17 20:47; Start 07/22/17 at 19:45; Stop 07/22/17 at 22:46 ; Status DC Furosemide (Lasix Inj) 40 mg ONCE ONCE IV PUSH Last administered on 07/22/17 20:47; Start 07/22/17 at 20:30; Stop 07/22/17 at 20:31; Status DC Nitroglycerin (Nitrostat Sl) 0.4 mg ONCE ONCE SL Last administered on 21:28; Start 07/22/17 at 21:15; Stop 07/22/17 at 21:16; Status DC Acetaminophen (Tylenol) 650 mg ONCE ONCE PO Last administered on 07/22/17 21: 49; Start 07/22/17 at 21:45; Stop 07/22/17 at 21:46; Status DC Nitroglycerin (Nitroglycerin 2% Oint) 0.5 inch ONCE ONCE TOPICAL Last administered on 07/22/17 22:14; Start 07/22/17 at 22:00; Stop 07/22/17 at 22:01 ; Status DC Sotalol HCl (Betapace) 80 mg ONCE ONCE PO Last administered on 07/23/17 01: 44; Start 07/22/17 at 22:30; Stop 07/22/17 at 22:41; Status DC Diltiazem HCl (Cardizem Cd) 120 mg ONCE ONCE PO Last administered on 01:44; Start 07/22/17 at 22:30; Stop 07/22/17 at 22:41; Status DC Apixaban (Eliquis) 5 mg ONCE ONCE PO Last administered on 07/23/17 01:44; Start 07/22/17 at 22:30; Stop 07/22/17 at 22:41; Status DC Hydrocortisone (Cortef) 5 mg ONCE ONCE PO Last administered on 07/23/17 01: 44; Start 07/22/17 at 22:30; Stop 07/22/17 at 22:41; Status DC Potassium Chloride (KCl) 20 meq ONCE ONCE PO Last administered on 07/23/17 01:45; Start 07/22/17 at 22:30; Stop 07/22/17 at 22:41; Status DC Sodium Chloride (NS Flush) 2 ml UNSCH PRN IV FLUSH FLUSH AFTER USING IV ACCESS ; Start 07/22/17 at 22:45; Stop 07/22/17 at 22:49; Status DC Sodium Chloride (NS Flush) 2 ml BID IV FLUSH ; Start 07/23/17 at 09:00; Stop 07/23/17 at 09:00; Status DC Naloxone HCl (Narcan Inj) 0.4 mg UNSCH PRN IV PUSH SEE LABEL COMMENTS; Start 07/22/17 at 22:45 Furosemide (Lasix Inj) 40 mg BID@09,18 IV PUSH ; Start 07/23/17 at 09:00; Stop 07/23/17 at 09:00; Status DC Sodium Chloride (NS Flush) 2 ml BID IV FLUSH Last administered on 07/29/17 09 :21; Start 07/23/17 at 09:00 Sodium Chloride (NS Flush) 2 ml UNSCH PRN IVF FLUSH AFTER USING IV ACCESS; Start 07/22/17 at 23:00 Dextrose (D50w (Vial) Inj) 50 ml UNSCH PRN IV PUSH HYPOGLYCEMIA-SEE COMMENTS; Start 07/23/17 at 00:45; Stop 07/23/17 at 08:38; Status DC Glucagon (Glucagon Inj) 1 mg UNSCH PRN OTHER HYPOGLYCEMIA-SEE COMMENTS; Start 07/23/17 at 00:45; Stop 07/23/17 at 08:39; Status DC Alprazolam (Xanax) 0.25 mg Q8H PRN PO ANXIETY Last administered on 07/28/17 21:37; Start 07/23/17 at 08:30 Digoxin (Lanoxin) 0.125 mg DAILY PO Last administered on 07/29/17 09:20; Start 07/23/17 at 09:00 Docusate Sodium (Colace) 100 mg DAILY PRN PO Constipation Last administered on 07/24/17 08:42; Start 07/23/17 at 08:30; Stop 07/26/17 at 15:39; Status DC Hydrocortisone (Cortef) 7.5 mg DAILY@0800 PO Last administered on 07/29/17 09 :19; Start 07/24/17 at 08:00 Hydrocortisone (Cortef) 5 mg AC DINNER PO Last administered on 07/28/17 16: 19; Start 07/23/17 at 16:00 Levothyroxine Sodium (Synthroid) 25 mcg DAILY@0600 PO Last administered on 10:12; Start 07/23/17 at 09:00; Stop 07/23/17 at 10:34; Status DC Meclizine HCl (Antivert) 12.5 mg DAILY PRN PO VERTIGO Last administered on 08:58; Start 07/23/17 at 08:30 Potassium Chloride (KCl) 20 meq BID PO Last administered on 07/29/17 09:20; Start 07/23/17 at 09:00 Sotalol HCl (Betapace) 80 mg BID PO Last administered on 07/26/17 08:11; Start 07/23/17 at 09:00; Stop 07/26/17 at 17:08; Status DC Torsemide (Demadex) 5 mg DAILY PO Last administered on 07/23/17 10:16; Start 07/23/17 at 09:00; Stop 07/23/17 at 16:14; Status DC Diltiazem HCl (Cardizem Cd) 120 mg DAILY PO Last administered on 07/27/17 09: 07; Start 07/24/17 at 09:00; Stop 07/27/17 at 11:16; Status DC Dextrose (D50w (Vial) Inj) 50 ml UNSCH PRN IV PUSH HYPOGLYCEMIA-SEE COMMENTS; Start 07/23/17 at 08:30 Glucagon (Glucagon Inj) 1 mg UNSCH PRN OTHER HYPOGLYCEMIA-SEE COMMENTS; Start 07/23/17 at 08:30 Miscellaneous (Pill Splitter) 1 ea UNSCH PRN OTHER SEE LABEL COMMENTS; Start 07/23/17 at 08:45 Ondansetron HCl (Zofran Inj) 4 mg Q8HR PRN IV PUSH nausea/vomiting Last administered on 07/28/17 15:50; Start 07/23/17 at 10:45 Acetaminophen (Tylenol) 500 mg Q4H PRN PO pain 1-10 Last administered on 11:49; Start 07/23/17 at 10:45 Loratadine/ Pseudoephedrine Sulfate (Claritin-D 12 Hr) 1 tab Q12HR PO Last administered on 07/24/17 08:37; Start 07/23/17 at 21:00; Stop 07/24/17 at 10 :25; Status DC Insulin Aspart (NovoLOG SUPPLEMENTAL SCALE) 1 ACHS SLIDING SCALE SQ Last administered on 07/29/17 11:49; Start 07/23/17 at 17:00 Apixaban (Eliquis) 5 mg BID PO Last administered on 07/26/17 08:11; Start at 21:00; Stop 07/26/17 at 17:08; Status DC Furosemide (Lasix Inj) 20 mg BID@09,18 IV PUSH Last administered on 07/24/17 08:38; Start 07/23/17 at 18:00; Stop 07/24/17 at 15:32; Status DC Vancomycin HCl 1000 mg/Sodium Chloride 250 ml @ 250 mls/hr ONCE ONCE IV ; Start 07/23/17 at 21:00; Stop 07/23/17 at 22:32; Status DC Furosemide (Lasix Inj) 20 mg DAILY IV PUSH Last administered on 07/29/17 09: 21; Start 07/25/17 at 09:00 Doxycycline Hyclate (Vibramycin) 100 mg BID PO Last administered on 07/29/17 09:20; Start 07/25/17 at 13:00 Magnesium Hydroxide (Milk Of Magnesia Liq) 30 ml DAILY PRN PO constipation; Start 07/25/17 at 11:00 Magnesium Hydroxide (Milk Of Magnesia Liq) 30 ml ONCE ONCE PO Last administered on 07/25/17 14:54; Start 07/25/17 at 13:15; Stop 07/25/17 at 13 :16; Status DC Albuterol/ Ipratropium (Duoneb Neb) 1 ampule Q6HR NEB PRN NEB SHORTNESS OF BREATH Last administered on 07/27/17 15:21; Start 07/25/17 at 12:45 Zolpidem Tartrate (Ambien) 5 mg HS PRN PO insomnia Last administered on 21:38; Start 07/26/17 at 13:00 Aspirin (Ecotrin Ec) 81 mg DAILY PO Last administered on 07/29/17 09:19; Start 07/27/17 at 09:00 Docusate Sodium (Colace) 100 mg DAILY PO Last administered on 07/29/17 09:21 ; Start 07/27/17 at 09:00 Dabigatran (Pradaxa) 150 mg BID PO Last administered on 07/29/17 09:20; Start 07/26/17 at 21:00 Metoprolol Tartrate (Lopressor) 25 mg Q12HR PO Last administered on 07/27/17 09:07; Start 07/26/17 at 21:00; Stop 07/27/17 at 17:14; Status DC Benzonatate (Tessalon) 100 mg TID PRN PO cough; Start 07/27/17 at 10:15; Stop 07/27/17 at 14:35; Status DC Benzonatate (Tessalon) 100 mg ONCE ONCE PO Last administered on 07/27/17 10: 53; Start 07/27/17 at 10:15; Stop 07/27/17 at 10:16; Status DC Diltiazem HCl (Cardizem Cd) 120 mg BID PO Last administered on 07/29/17 09:19 ; Start 07/27/17 at 21:00 Diltiazem HCl (Cardizem Cd) 120 mg ONCE ONCE PO Last administered on 11:28; Start 07/27/17 at 11:30; Stop 07/27/17 at 11:31; Status DC Metoprolol Tartrate (Lopressor) 50 mg Q12HR PO Last administered on 07/28/17 08:31; Start 07/27/17 at 21:00; Stop 07/28/17 at 11:09; Status DC Metoprolol Tartrate (Lopressor) 25 mg Q12HR PO Last administered on 07/29/17t 09:20; Start 07/28/17 at 21:00 A/P Problem List: (1) Pericardial effusion ICD Code: I31.3 - Pericardial effusion (noninflammatory) (2) Atrial fibrillation ICD Code: I48.91 - Unspecified atrial fibrillation Status: Chronic (3) Diabetes ICD Code: E11.9 - Type 2 diabetes mellitus without complications Assessment and Plan 77 y/o female with a history of afib, dm, hypothyroid, anxiety, depression, vertigo presented to the ED with complaints of sob at rest. Dyspnea -Unsure etiology. Maybe due to worsening pericardial effusion versus CHF versus URI. -Chest x-ray suggests CHF exacerbation. BNP 203. Patient on Lasix per ear nose and throat specialist. Dosage was decreased. -Echo reviewed by [facility] and they stated that her car effusion is stable. -Director [employer] and cardiovascular surgeon following appreciate consult. [facility] signed off. -Administrative Support Associate following. CT of the chest suggest possible bilateral atelectasis versus pneumonia. -Since patient is URI symptoms or not improving patient was treated empirically doxycycline started yesterday. continue doxycycline since per patient symptoms are improving. Pericardial effusion, echo on 07/14 shows pericardial effusion -Repeat echo on 07/23 showed moderate amount pericardial effusion with no pre- tamponade. -Cardiovascular surgeon reviewed and stated that pericardial effusion is stable. Afib, chronic -Continue home medications Sotalol and Cardizem -Diltiazem and digoxin was added. Heart rate better controlled. -Director [employer] following. -Unable to cardiovert due to clots. Patient was put on Pradaxa. Eliquis was discontinued. Hypothyroid, chronic -TSH is 0.0005 continues to be suppressed. Patient stated that she takes Synthroid every other day. Recommending discontinuing medication, but patient stated she will follow up with her spar machine operator. Iatrogenic hyperthyroidism -see medication as above. Adrenal insufficiency -Continue her current regimen. Follow-up with spar machine operator. DM, chronic -Hold oral hypoglycemic medication. On insulin sliding scale. herpes labialis. -Will give acyclovir ointment. DVT prophylaxis: SCDs, Pradaxa. Discharge Planning Pending better control of heart rate and clearance from ear nose and throat specialist for discharge. Francia Hernandez MD Jul 29, 2017 12:17
[2017-07-29] MEDS ORDERED: ACYCLOVIR 5% OINT 5 APPLIC/5 GM TUBE TOPICAL SCH (14:00)
[2017-07-29] MEDS: ACYCLOVIR 5% OINT 15 APPLIC/15 GM TUBE TOPICAL SCH ×3 (14:30→21:11)
--- NOTE | 2017-07-29 15:10 | PD.CARD.PN ---
Subjective Subjective Remarks The patient continues to have SOB and whitish sputum production. She has chest heaviness associated with SOB that is stable. She feels a little stronger since admission. She denies bleeding problems. (Shana Patel) Objective Medications Current Medications Medications (Trade) Dose Ordered Sig/Chang Route Start Time Stop Time Status Last Admin (Narcan Inj) 0.4 mg UNSCH PRN IV PUSH 07/22/17 22:45 (NS Flush) 2 ml BID IV FLUSH 07/23/17 09:00 07/29/17 09:21 (NS Flush) 2 ml UNSCH PRN IVF 07/22/17 23:00 (Xanax) 0.25 mg Q8H PRN PO 07/23/17 08:30 07/28/17 21:37 (Lanoxin) 0.125 mg DAILY PO 07/23/17 09:00 07/29/17 09:20 (Cortef) 7.5 mg DAILY@0800 PO 07/24/17 08:00 07/29/17 09:19 (Cortef) 5 mg AC DINNER PO 07/23/17 16:00 07/28/17 16:19 (Antivert) 12.5 mg DAILY PRN PO 07/23/17 08:30 07/23/17 08:58 (KCl) 20 meq BID PO 07/23/17 09:00 07/29/17 09:20 (D50w (Vial) Inj) 50 ml UNSCH PRN IV PUSH 07/23/17 08:30 (Glucagon Inj) 1 mg UNSCH PRN OTHER 07/23/17 08:30 (Pill Splitter) 1 ea UNSCH PRN OTHER 07/23/17 08:45 (Zofran Inj) 4 mg Q8HR PRN IV PUSH 07/23/17 10:45 07/28/17 15:50 (Tylenol) 500 mg Q4H PRN PO 07/23/17 10:45 07/29/17 11:49 (NovoLOG SUPPLEMENTAL SCALE) 1 ACHS SLIDING SCALE SQ 07/23/17 17:00 07/29/17 11:49 (Lasix Inj) 20 mg DAILY IV PUSH 07/25/17 09:00 07/29/17 09:21 (Vibramycin) 100 mg BID PO 07/25/17 13:00 07/29/17 09:20 (Milk Of Magnbean Liq) 30 ml DAILY PRN PO 07/25/17 11:00 (Duoneb Neb) 1 ampule Q6HR NEB PRN NEB 07/25/17 12:45 07/27/17 15:21 (Ambien) 5 mg HS PRN PO 07/26/17 13:00 07/28/17 21:38 (Ecotrin Ec) 81 mg DAILY PO 07/27/17 09:00 07/29/17 09:19 (Colace) 100 mg DAILY PO 07/27/17 09:00 07/29/17 09:21 (Pradaxa) 150 mg BID PO 07/26/17 21:00 07/29/17 09:20 (Cardizem Cd) 120 mg BID PO 07/27/17 21:00 07/29/17 09:19 (Lopressor) 25 mg Q12HR PO 07/28/17 21:00 07/29/17 09:20 (Zovirax 5% Oint (15 Gm)) 1 applic 5 TIMES A DAY TOPICAL 07/29/17 14:30 Vital Signs / I&O Vital Signs Date Time Temp Pulse Resp B/P (MAP) Pulse Ox O2 Delivery O2 Flow Rate FiO2 07/29/17 13:00 68 07/29/17 12:54 20 07/29/17 12:02 95 07/29/17 12:00 71 07/29/17 11:00 74 07/29/17 11:00 98.0 71 20 105/60 (75) 95 07/29/17 10:00 110 07/29/17 09:00 100 07/29/17 08:00 88 07/29/17 08:00 92 Room Air 07/29/17 08:00 98.0 90 20 116/57 (76) 92 07/29/17 07:00 76 07/29/17 06:00 94 07/29/17 05:00 88 07/29/17 04:00 90 07/29/17 04:00 Room Air 07/29/17 04:00 98.1 90 18 125/65 (85) 92 07/29/17 03:00 80 07/29/17 02:00 74 07/29/17 01:00 78 07/29/17 00:00 75 07/29/17 00:00 Nasal Cannula 2.00 07/29/17 00:00 98.3 75 18 113/64 (80) 93 07/28/17 23:00 84 07/28/17 22:00 87 07/28/17 21:00 89 07/28/17 20:00 92 07/28/17 20:00 Room Air 07/28/17 20:00 97.9 92 20 111/57 (75) 93 07/28/17 18:11 93 07/28/17 17:42 84 07/28/17 16:10 73 07/28/17 15:44 97.7 68 17 125/54 (77) 93 I/O 07/28/17 07/28/17 07/28/17 07/29/17 07/29/17 07/29/17 07:00 15:00 23:00 07:00 15:00 23:00 Intake Total 480 ml 960 ml 480 ml Balance 480 ml 960 ml 480 ml Intake Oral 480 ml 960 ml 480 ml # Voids 3 3 3 # Bowel Movements 0 1 0 Physical Exam GENERAL: Elderly female sitting up ion the side of the bed SKIN: Warm and dry. Pallor HEAD: Atraumatic. Normocephalic. EYES: Pupils equal and round. No scleral icterus. No injection or drainage. ENT: No nasal bleeding or discharge. Mucous membranes pink and moist. NECK: Trachea midline. CARDIOVASCULAR: Irreg irreg RESPIRATORY: very air entry and diminished bases bilateral GASTROINTESTINAL: Abdomen soft, non-tender, nondistended. MUSCULOSKELETAL: Extremities without clubbing, cyanosis, or edema. NEUROLOGICAL: Awake and alert. No obvious cranial nerve deficits. Motor grossly within normal limits. Five out of 5 muscle strength in the arms and legs. Normal speech. PSYCHIATRIC: Appropriate mood and affect; insight and judgment normal. (Shana Patel) Assessment and Plan Problem List: (1) Atrial fibrillation ICD Codes: I48.91 - Unspecified atrial fibrillation Status: Chronic (2) moderate pericardial effusion Assessment and Plan Atrial fibrillation on Pradaxa Left atrial thrombus Aortic regurgitation and mild MS Acute on chronic CHF exacerbation. Dilated IVC Bilateral pleural effusions and small to moderate pericardial effusion Adrenal insufficiency Iatrogenic hyperthyroidism Pneumonia Abnormal PFT PLAN Continue current rate control therapy. No longer on Sotalol. Continue Pradaxa and ASA Called Dr Rosario requesting he review the PFTs and see the patient. Appreciate his input We will plan to refer the patient to [facility] following discharge Discharge tomorrow if she remains stable. The patient was seen and evaluated by Dr Garvey who completed face to face encounter, physical exam and participated in evaluation and management (Shana Patel) Assessment and Plan The exam, history, and the medical decision-making described in the above note were completed with the assistance of the mid-level provider. I reviewed and agree with the findings presented. I attest that I had a [id number] encounter with the patient on the same day, and personally performed and documented my assessment and findings in the medical record. May have mild chf but has severe lung disease from long history of smoking (Jordi Garvey MD) Shana Patel Jul 29, 2017 15:10 Jordi Garvey MD Jul 30, 2017 17:57
--- NOTE | 2017-07-29 15:20 | CF ---
cc: ELIDA OROZCO DATE OF PROCEDURE: 07/26/2017 PROCEDURE PERFORMED Transesophageal echocardiogram. INDICATION Evaluation of left atrial thrombus prior to cardioversion, mitral valve stenosis. PROCEDURE After the patient was sedated by anesthesia, transesophageal probe was placed without difficulty. Tomographic images were obtained. The left ventricular function was preserved. There was evidence of mitral annular calcification and mitral valve thickening. There was evidence of mitral stenosis. There was evidence of mild mitral regurgiation. Aortic valve was thickened. There was no evidence of aortic stenosis and it was thickened and calcified. There was evidence of mild aortic insufficiency and no aortic valve stenosis. There was evidence of trace tricuspid regurgitation. There was evidence of trace pulmonary insufficiency. Left atrial was well-visualized. There was evidence of mobile left atrial thrombus which measured 0.9 cm. The left atrial was dilated. Bubble study was performed and there was no evidence of right to left shunt. Descending thoracic aorta had mild plaque. DIAGNOSIS 1. Left atrial thrombus. 2. Left atrial enlargement. 3. Mitral valve stenosis. 4. Preserved ventricular systolic function. 5. Mitral valve sclerosis. 6. Mitral annular calcification. 7. Mild mitral regurgitation. 8. Aortic sclerosis without stenosis. 9. Mild aortic regurgitation. 10. Left atrial thrombus. DISPOSITION Ms. Fried will continue her anticoagulation with Eliquis. Will add low dose aspirin. We will not proceed with cardioversion. We will also discontinue Sotalol at this time. Will continue current medical program including diuresis. She will followup with Dr. Garvey, her primary biophysics teacher. MD RANDOLPH Fajardo/BARB /2:53 PM /3:01 PM
[2017-07-29] MEDS: ZOLPIDEM TARTRATE 5 MG TAB PO PRN (22:21)
[2017-07-29] MEDS: ALPRAZolam 0.25 MG TAB PO PRN (22:21)
[2017-07-30] VITALS (12 sets, daily range): BP systolic 104–121; BP diastolic 58–73; PULSE 69–100; RESP 16–18; TEMP 97.7–98.7; O2SAT 93–97
[2017-07-30] MEDS: ACYCLOVIR 5% OINT 15 APPLIC/15 GM TUBE TOPICAL SCH ×2 (06:00→08:30)
[2017-07-30 07:01] LABS: MEAN CELL VOLUME 90.8 FL (80.0-100.0); MEAN CORPUSCULAR HEMOGLOBIN 30.6 PG (27.0-34.0); MEAN CORPUSCULAR HGB CONC 33.7 % (32.0-36.0); PLATELET COUNT 240 TH/MM3 (150-450); RED BLOOD COUNT 4.51 MIL/MM3 (4.00-5.30); REVIEW FLAG FINAL; WHITE BLOOD COUNT 6.7 TH/MM3 (4.0-11.0)
[2017-07-30 07:31] LABS: BICARBONATE 28.6 MEQ/L (21.0-32.0); POTASSIUM 3.7 MEQ/L (3.5-5.1)
[2017-07-30] MEDS: DIGOXIN 0.125 MG TAB PO SCH (08:29)
[2017-07-30] MEDS: ASPIRIN EC 81 MG TABEC PO SCH (08:29)
[2017-07-30] MEDS: DABIGATRAN ETEXILATE 150 MG CAP PO SCH (08:29)
[2017-07-30] MEDS: METOPROLOL TARTRATE 25 MG TAB PO SCH (08:29)
[2017-07-30] MEDS: DOXYCYCLINE HYCLATE 100 MG CAP PO SCH (08:29)
[2017-07-30] MEDS: DILTIAZEM-CD 120 MG CAP ER PO SCH (08:29)
[2017-07-30] MEDS: INSULIN ASPART SUPPLEMENTAL SCALE SQ SCH (08:29)
--- NOTE | 2017-07-30 08:29 | HHI.PR ---
Subjective Remarks Follow up for Afib, CHF. Objective Vitals Vital Signs Date Time Temp Pulse Resp B/P (MAP) Pulse Ox O2 Delivery O2 Flow Rate FiO2 07/30/17 08:09 97.7 88 18 112/73 (86) 93 07/30/17 07:30 Room Air 07/30/17 05:00 79 07/30/17 04:00 76 07/30/17 03:00 98.7 71 16 121/58 (79) 97 07/30/17 03:00 71 07/30/17 02:00 74 07/30/17 01:00 69 07/29/17 23:00 82 07/29/17 23:00 98.4 82 18 123/70 (87) 94 07/29/17 22:00 82 07/29/17 21:00 96 07/29/17 19:00 106 07/29/17 19:00 95 Room Air 07/29/17 19:00 98.6 96 18 137/78 (97) 95 07/29/17 18:00 82 07/29/17 17:00 86 07/29/17 16:00 76 07/29/17 15:00 97.9 72 22 97/62 (74) 94 07/29/17 15:00 66 07/29/17 15:00 66 07/29/17 14:00 70 07/29/17 13:00 68 07/29/17 12:54 20 07/29/17 12:02 95 07/29/17 12:00 71 07/29/17 11:00 74 07/29/17 11:00 98.0 71 20 105/60 (75) 95 07/29/17 10:00 110 07/29/17 09:00 100 I/O 07/29/17 07/29/17 07/29/17 07/30/17 07/30/17 07/30/17 07:00 15:00 23:00 07:00 15:00 23:00 Intake Total 480 ml 240 ml 480 ml Balance 480 ml 240 ml 480 ml Intake Oral 480 ml 240 ml 480 ml # Voids 3 4 3 # Bowel Movements 0 0 Result Diagram: 07/30/17 0520 07/30/17 0520 Imaging Last Impressions Chest CT 07/24/17 0000 Signed Impressions: Service Date/Time: Monday, July 24, 2017 15:15 - CONCLUSION: 1. Bibasilar atelectasis versus pneumonia with small bilateral effusion 2. Small pericardial effusion Man Tobar MD Chest X-Ray 07/23/17 0000 Signed Impressions: Service Date/Time: Sunday, July 23, 2017 21:09 - CONCLUSION: No acute pulmonary infiltrates. Stable cardiomegaly. Mehdi Hernández MD Objective Remarks GENERAL: SKIN: Warm and dry. HEAD: Normocephalic. EYES: No scleral icterus. No injection or drainage. NECK: Supple, trachea midline. No JVD or lymphadenopathy. CARDIOVASCULAR: Regular rate and rhythm without murmurs, gallops, or rubs. RESPIRATORY: Breath sounds equal bilaterally. No accessory muscle use. GASTROINTESTINAL: Abdomen soft, non-tender, nondistended. MUSCULOSKELETAL: No cyanosis, or edema. BACK: Nontender without obvious deformity. No CVA tenderness. A/P Problem List: (1) Pericardial effusion ICD Code: I31.3 - Pericardial effusion (noninflammatory) (2) Atrial fibrillation ICD Code: I48.91 - Unspecified atrial fibrillation Status: Chronic (3) Diabetes ICD Code: E11.9 - Type 2 diabetes mellitus without complications Assessment and Plan Ms. Fried is a 77 year old female with a history of CHF, Afib, hypothyroidism , diabetes mellitus who was sent from her compliance quality performance analyst Dr. Kohler office on 07/22/2017 due to shortness of breath that started about 5 days prior to this admission. Dyspnea -Unsure etiology. Maybe due to worsening pericardial effusion versus CHF versus URI. -Chest x-ray suggests CHF exacerbation. BNP 203. Patient on Lasix per compliance quality performance analyst. Dosage was decreased. -Echo reviewed by [facility] and they stated that her car effusion is stable. -Landscape Drafter and cardiovascular surgeon following appreciate consult. [facility] signed off. -Radiation Safety Officer following. CT of the chest suggest possible bilateral atelectasis versus pneumonia. -Since patient is URI symptoms or not improving patient was treated empirically doxycycline started yesterday. continue doxycycline since per patient symptoms are improving. Pericardial effusion, echo on 07/14 shows pericardial effusion -Repeat echo on 07/23 showed moderate amount pericardial effusion with no pre- tamponade. -Cardiovascular surgeon reviewed and stated that pericardial effusion is stable. Afib, chronic -Continue home medications Sotalol and Cardizem -Diltiazem and digoxin was added. Heart rate better controlled. -Landscape Drafter following. -Unable to cardiovert due to clots. Patient was put on Pradaxa. Eliquis was discontinued. Hypothyroid, chronic -TSH is 0.0005 continues to be suppressed. Patient stated that she takes Synthroid every other day. Recommending discontinuing medication, but patient stated she will follow up with her ceramics machine operator. Iatrogenic hyperthyroidism -see medication as above. Adrenal insufficiency -Continue her current regimen. Follow-up with ceramics machine operator. DM, chronic -Hold oral hypoglycemic medication. On insulin sliding scale. herpes labialis. -Will give acyclovir ointment. DVT prophylaxis: SCDs, Pradaxa. Mika Flannery DO Jul 30, 2017 8:29 am
[2017-07-30] MEDS: DOCUSATE SODIUM 100 MG CAP PO SCH (08:30)
[2017-07-30] MEDS: POTASSIUM CHLORIDE 20 MEQ CONTROLLED RELEASE TAB PO SCH (08:30)
[2017-07-30] MEDS: FUROSEMIDE 20 MG/2 ML VIAL IV PUSH SCH (08:30)
[2017-07-30] MEDS: HYDROCORTISONE 10 MG TAB PO SCH (08:30)
[2017-07-30] MEDS: SODIUM CHLORIDE 0.9% FLUSH 10 ML FLUSH IV FLUSH SCH (08:30)
--- NOTE | 2017-07-30 10:00 | HHI.FF ---
Face to Face Verification Diagnosis: (1) Pulmonary edema (2) Atrial fibrillation (3) Pericardial effusion Physical Therapy Order: Evaluate and Treat, Improve ambulation, Strength and gait training Home Health Nursing Order: Signs/symptoms of disease process CHF education Medication education-adverse effect Nursing assessment with vital signs I have seen patient Carolann Fried on 07/30/17. My clinical findings support the need for the requested home health care services because: Patient has SOB Deconditioned w/ increased weakness Limited ability to care for self Need for psychosocial assistance Impaired cognition/judgement High risk of falls Infection w/ risk of complications I certify that my clinical findings support that this patient is homebound because: Unsteady gait/balance Unsafe to leave home unassisted Need for psychosocial assistance [id number] bed/chair Unable to use public transportation Mika Flannery DO Jul 30, 2017 10:00 am
[2017-07-30] MEDS ORDERED: HYDR5TAB64 PO ×2 (10:12→11:16)
[2017-07-30] MEDS ORDERED: TORS5TAB2 PO ×2 (10:12→11:15)
[2017-07-30] MEDS ORDERED: DOXY100C PO ×2 (10:12→11:15)
[2017-07-30] MEDS ORDERED: K-TA10TA PO ×2 (10:12→11:15)
[2017-07-30] MEDS ORDERED: METO25TA3 PO ×2 (10:12→11:15)
[2017-07-30] MEDS ORDERED: ASPI-99 PO ×2 (10:12→11:15)
[2017-07-30] MEDS ORDERED: PRAD150C PO ×2 (10:12→11:15)
--- NOTE | 2017-07-30 10:18 | HHI.DS ---
Discharge Summary Admission Date Jul 22, 2017 at 11:45 pm Discharge Date: Jul 30, 2017 Admitting Diagnosis chf (1) Pericardial effusion ICD Code: I31.3 - Pericardial effusion (noninflammatory) (2) Atrial fibrillation ICD Code: I48.91 - Unspecified atrial fibrillation Status: Chronic (3) Diabetes ICD Code: E11.9 - Type 2 diabetes mellitus without complications Procedures Echocardiogram 07/23/2017 CONCLUSIONS The left ventricular systolic function is normal with an estimated ejection fraction in the range of 60-65%. Mild mitral valve stenosis. (MVA 2.39, mean grad 4 at 82bpm). Mild aortic valve regurgitation. There is a moderate pericardial effusion present. No hemodynamically significant echocardiographic features were observed (no pre -tamponade physiology). IAN 07/26/2017 PROCEDURE After the patient was sedated by anesthesia, transesophageal probe was placed without difficulty. Tomographic images were obtained. The left ventricular function was preserved. There was evidence of mitral annular calcification and mitral valve thickening. There was evidence of mitral stenosis. There was evidence of mild mitral regurgiation. Aortic valve was thickened. There was no evidence of aortic stenosis and it was thickened and calcified. There was evidence of mild aortic insufficiency and no aortic valve stenosis. There was evidence of trace tricuspid regurgitation. There was evidence of trace pulmonary insufficiency. Left atrial was well-visualized. There was evidence of mobile left atrial thrombus which measured 0.9 cm. The left atrial was dilated. Bubble study was performed and there was no evidence of right to left shunt. Descending thoracic aorta had mild plaque. Ms. Fried will continue her anticoagulation with Eliquis. Will add low dose aspirin. We will not proceed with cardioversion. We will also discontinue Sotalol at this time. Will continue current medical program including diuresis. She will followup with Dr. Garvey, her primary marketing research analyst. Brief History - From Admission 77 y/o female with a history of afib, dm, hypothyroid, anxiety, depression, vertigo presented to the ED with complaints of sob at rest. She was seen at her cardiology office Dr. Garvey and he thought she was having a chf exacerbation and was told to come to the ED. She was recently discharged 8 days ago after having a thoracentesis with 400cc fluid removed, originally admitted for afib and scheduled for a IAN and ablation. She developed sob and was found to have a left pleural effusion, and the IAN/ablation was cancelled. Echo was completed on 07/14/17 and showed a pericardial effusion with moderate acrotic regurgitation , EF 60- 65%. She complains of a productive cough with white sputum for the last week She denies fevers but states she has chills. Denies any chest pain, dizziness, nausea or vomiting. CBC/BMP: 07/30/17 0520 07/30/17 0520 Significant Findings Laboratory Tests Test 07/27/17 16:36 07/28/17 06:05 07/30/17 05:20 Blood Urea Nitrogen 27 MG/DL (7-18) 25 MG/DL (7-18) Random Glucose 204 MG/DL (74-106) 165 MG/DL (74-106) Estimat Glomerular Filtration Rate 81 ML/MIN (>89) Free Thyroxine 2.19 NG/DL (0.76-1.46) Thyroid Stimulating Hormone 3rd Gen LESS THAN 0.005 uIU/ML Imaging Last Impressions Chest CT 07/24/17 0000 Signed Impressions: Service Date/Time: Monday, July 24, 2017 15:15 - CONCLUSION: 1. Bibasilar atelectasis versus pneumonia with small bilateral effusion 2. Small pericardial effusion Man Tobar MD Chest X-Ray 07/23/17 0000 Signed Impressions: Service Date/Time: Sunday, July 23, 2017 21:09 - CONCLUSION: No acute pulmonary infiltrates. Stable cardiomegaly. Mehdi Hernández MD PE at Discharge GENERAL: SKIN: Warm and dry. HEAD: Normocephalic. EYES: No scleral icterus. No injection or drainage. NECK: Supple, trachea midline. No JVD or lymphadenopathy. CARDIOVASCULAR: Regular rate and rhythm without murmurs, gallops, or rubs. RESPIRATORY: Breath sounds equal bilaterally. No accessory muscle use. GASTROINTESTINAL: Abdomen soft, non-tender, nondistended. MUSCULOSKELETAL: No cyanosis, or edema. BACK: Nontender without obvious deformity. No CVA tenderness. Pt update on day of discharge Patient is doing well. Sitting in her chair, in room air. No acute concerns. Wants to go home if okay with her marketing research analyst and traverse rod assembler. Dr. Rosario is okay for discharge. Yesterday, cardiology also recommended discharge if patient remains stable. Hospital Course Ms. Fried is a 77 year old female with a history of CHF, Afib, hypothyroidism , diabetes mellitus who was sent from her marketing research analyst Dr. Kohler office on 07/22/2017 due to shortness of breath that started about 5 days prior to this admission. Probable pneumonia Bilateral atelectasis Dyspnea -Dyspnea possibly due to atelectasis -Chest x-ray suggests CHF exacerbation. BNP 203. Patient on Lasix per marketing research analyst. Dosage was decreased. -Echo reviewed by [facility] and they stated that her car effusion is stable. -Draw String Knotter and cardiovascular surgeon following appreciate consult. [facility] signed off. -Mail Officer following. CT of the chest suggest possible bilateral atelectasis versus pneumonia. -Since patient is URI symptoms or not improving patient was treated empirically doxycycline started. Will continue doxycycline for 7 days. Pericardial effusion, echo on 07/14 shows pericardial effusion -Repeat echo on 07/23 showed moderate amount pericardial effusion with no pre- tamponade. -Cardiovascular surgeon reviewed and stated that pericardial effusion is stable. Afib, chronic -Continue home medications Sotalol and Cardizem -Diltiazem and digoxin was added. Heart rate better controlled. -Draw String Knotter following. -Unable to cardiovert due to clot found on IAN. Patient was put on Pradaxa. Eliquis was discontinued. Hypothyroid, chronic -TSH is 0.0005 continues to be suppressed. Patient stated that she takes Synthroid every other day. Recommending discontinuing medication, but patient stated she will follow up with her bereavement counselor. Adrenal insufficiency -Continue her current regimen with hydrocortisone. Follow-up with bereavement counselor. DM, chronic -Hold oral hypoglycemic medication. On insulin sliding scale. herpes labialis. -Will give acyclovir ointment for 14 days. Pt Condition on Discharge: Good Discharge Disposition: Disch w/ Home Health Serv Discharge Time: > 30 minutes Discharge Instructions DIET: Follow Instructions for: Diabetic Diet Activities you can perform: Regular-No Restrictions Follow up Referrals: Cardiology - 1 Week with Jordi Garvey MD PCP Follow-up - 2 Weeks New Medications: Hydrocortisone (Hydrocortisone) 5 Mg Tab 7.5 MG PO DAILY for adrenal, #45 TAB 3 Refills Take with food to decrease GI upset Potassium Chloride ER (K-Tab) 10 Meq Tab 10 MEQ PO BID for Electrolyte Replacement, #60 TAB 0 Refills Acyclovir Topical (Acyclovir Topical) 5% Oint 1 APPLIC TOPICAL 5 TIMES A DAY for Infection for 14 Days, #[address] (Adult Aspirin EC Low Strength) 81 Mg Tabec 81 MG PO DAILY for Blood Clot Prevention, #90 TAB Dabigatran (Pradaxa) 150 Mg Cap 150 MG PO BID for Blood Clot Prevention, #60 CAP Doxycycline Hyclate (Doxycycline Hyclate) 100 Mg Cap 100 MG PO BID for Infection, #14 CAP Metoprolol Tartrate (Metoprolol Tartrate) 25 Mg Tab 25 MG PO Q12HR for Heart, #60 TAB 3 Refills Continued Medications: Alprazolam (Xanax) 0.25 Mg Tab 0.25 MG PO Q8H PRN for ANXIETY, TAB 0 Refills Digoxin (Digoxin) 0.125 Mg Tab 0.125 MG PO DAILY for Regulate Heart Beat, #30 TAB 0 Refills Diltiazem (Diltiazem) 120 Mg Tab 120 MG PO BID for Angina, #120 TAB 0 Refills Docusate Sodium (Dok) 100 Mg Cap 100 MG PO DAILY PRN for Constipation for 30 Days, CAP Hydrocortisone (Hydrocortisone) 5 Mg Tab 5 MG PO AC DINNER, #30 TAB 0 Refills Take with food to decrease GI upset Levothyroxine (Synthroid) 25 Mcg Tab 25 MCG PO DAILY for Thyroid, #30 TAB 0 Refills Meclizine (Meclizine) 12.5 Mg Tab 12.5 MG PO DAILY PRN for VERTIGO, TAB 0 Refills Multiple Vitamins W/ Minerals (Centrum Silver) 400 Mcg-250 Mcg Chw Sitagliptin-Metformin (Janumet) 50-500 Mg Tab 2 TAB PO DAILY for Blood Sugar Management, #60 TAB 0 Refills Torsemide (Torsemide) 5 Mg Tab 5 MG PO BID for Fluid, #60 TAB 0 Refills (This prescription has been renewed) Discontinued Medications: Apixaban (Eliquis) 5 Mg Tab 5 MG PO BID for Blood Clot Prevention, #60 TAB 0 Refills Hydrocortisone (Hydrocortisone) 5 Mg Tab 1.5 MG PO DAILY NEB, #30 TAB 0 Refills Take with food to decrease GI upset Hydrocortisone (Hydrocortisone) 5 Mg Tab 5 MG PO AC LUNCH, #60 TAB 0 Refills Take with food to decrease GI upset Potassium Chloride Microencaps (Potassium Chloride Microencaps) 20 Meq Tab 20 MEQ PO BID for 14 Days, TAB Sotalol (Sorine) 80 Mg Tab 80 MG PO BID for afib, #60 TAB Mika Flannery DO Jul 30, 2017 10:18 am
[2017-07-30] MEDS ORDERED: ACYC5OIN4 TOPICAL (11:35)
--- NOTE | 2017-07-30 21:44 | MD ---
cc: Clarice KNAPP M.D. ADMISSION DATE: 07/22/2017 DISCHARGE DATE: 07/30/2017 HISTORY Ms. Fried is a 77-year-old white female recently admitted with shortness of breath and CHF with rapid atrial fibrillation and mitral stenosis. She had bilateral effusions at that time and on 07/14 she had 400 milliliters of fluid drained. Unfortunately, no fluid was sent for analysis. The patient returned about a week later with increasing symptoms of shortness of breath again. Again, she had rapid atrial fibrillation with dyspnea and although BNP was only mildly elevated she did respond to diuresis. During this hospitalization she has improved considerably without specific attention to her lungs. She did have some diuresis. She had a transesophageal echocardiogram which revealed normal LV function but an enlarged left atrium with a small mobile atrial thrombus as well as mitral stenosis. CT scan was done which revealed no significant reaccumulation of fluid in the pleural spaces and some basilar atelectasis. She has been afebrile throughout her course. She has been on room air with saturations of 92-96%. Although she was a former smoker of about 40 pack-years she quit about 5 years ago and had not previously been known to have pulmonary disease, although certainly she could have some underlying COPD. She had a spirometry which was a poor study would suggest that she could have combined obstructive and restrictive disease. That needs to be followed up as an outpatient with a full pulmonary function when she is up and ambulatory as well. At this point she has had no significant reaccumulation of fluid. Certainly, the fluid bilateral that was originally drained could have been due to the atrial fibrillation with RVR and underlying mitral stenosis. She has no suggestion of ongoing infection at this point. She had an NORMA which was negative. Sed rate was mildly elevated at 54, etiology unclear but she was started on doxycycline for possible basilar infection in the lung. I reviewed these findings with her today. She is feeling very well, much better than presentation. Room air saturation now is in the mid 90s on room air and from a pulmonary standpoint I think she could be discharged. I do not really see any specific pulmonary issues that would be causing fluid at this time but obviously that can be followed up as an outpatient. I would also like to repeat her pulmonary functions in several weeks when the basilar atelectasis has resolved and we can get a good study. Further diagnostic and/or therapeutic intervention will depend on her future follow-up and ongoing clinical course. R. MD MIKALA Hernandez/MARGRET /8:51 AM /9:29 PM
--- NOTE | 2017-07-31 11:45 | RSPPFT ---
DATE OF PROCEDURE: 07/24/17 COMMENTS: VOLUMES DYNAMIC: FVC and FEV1 severely reduced. FLOWS: FEV1% normal; FEF 25-75 severely reduced. FLOW VOLUME LOOP: Obstructive and restrictive pattern. 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 There is no improvement post-bronchodilator.
== END 2017-07-30 11:45 | disposition home health service (06) | DRG 193 ==
LOC: NEPC 18:32 → NEDA 22:49 → OBSVTOIN 23:45 → NEDH 07-23 04:01 → HCIS 07-23 09:43
PROVIDERS: ADMIT Internal Medicine; ATTEND Hospitalist
PROC: B246ZZ4 Ultrasonography of Right and Left Heart, Transesophageal (ICD-10-PCS; principal; 2017-07-26)
DX: J18.9 Pneumonia, unspecified organism (principal); I50.33 Acute on chronic diastolic (congestive) heart failure; I31.3 Pericardial effusion (noninflammatory); E27.40 Unspecified adrenocortical insufficiency; J90 Pleural effusion, not elsewhere classified; I48.2 Chronic atrial fibrillation; I51.3 Intracardiac thrombosis, not elsewhere classified; J98.11 Atelectasis; E11.9 Type 2 diabetes mellitus without complications; E03.9 Hypothyroidism, unspecified; I08.0 Rheumatic disorders of both mitral and aortic valves; J06.9 Acute upper respiratory infection, unspecified; B00.1 Herpesviral vesicular dermatitis; I11.0 Hypertensive heart disease with heart failure; G44.40 Drug-induced headache, not elsewhere classified, not intractable; T46.3X5A Adverse effect of coronary vasodilators, initial encounter; F41.8 Other specified anxiety disorders; Z79.84 Long term (current) use of oral hypoglycemic drugs; Z87.891 Personal history of nicotine dependence; Z88.5 Allergy status to narcotic agent; Z88.0 Allergy status to penicillin; Z88.8 Allergy status to other drugs, medicaments and biological substances
CPT/HCPCS: 71010; 71250; 80048; 80053; 80162; 81001; 82550; 82948; 83735; 83880; 84100; 84439; 84443; 84484; 85025; 85027; 85610; 85652; 85730; 86038; 86140; 87040; 93005; 93306; 93312; 93320; 93325; 94060; 94150; 94640; 94664; 96374; J1815; J1940; J2405

== ENCOUNTER → 2017-08-21 | Outpatient (CLI) | payer MEDICARE ==
[~2017-08-21] MED LIST changes: +ACYC5OIN4 TOPICAL; +ALPR.25 PO; -ALPR.5 PO; -AMLO5 PO; -APIX5TAB PO; +ASPI1TAB56 PO; +CENTCHW3; -CYCL1TAB29 PO; +DIGO0.12 PO; +DILT120T PO; +DOXY100C PO; -FLUD.1 PO; -GABA100C4 PO; -HYDR25TA35 PO; +HYDR5TAB64 PO; +JANU50TA4 PO; +K-TA10TA PO; -LEVO.075 PO; -LIDO5DIS35 TD; +METO25TA3 PO; -Miconazole 2% Cream TOPICAL; -NAME5TAB2 PO; -POTA20TA5 PO; +PRAD150C PO; -REGL10TA5 PO; -SOTA80 PO; +SYNT25TA PO; -ULTR50TA5 PO; -WHEEMIS3
== END ==
LOC: HRSP 12:58
PROVIDERS: ATTEND Internal Medicine
DX: J90 Pleural effusion, not elsewhere classified (principal); R06.02 Shortness of breath
CPT/HCPCS: 94060; 94620; 94726; 94729